=== PATIENT | female | born 1940 | race Caucasian/White ===

== ENCOUNTER → 2017-05-14 | Outpatient (CLI) | payer OTHER | END | disposition home or self-care (01) | LOC: C.PAPS 16:15 | PROVIDERS: ATTEND Obstetrics & Gynecology | DX: Z12.4 Encounter for screening for malignant neoplasm of cervix (principal) ==

== ENCOUNTER 2019-04-29 09:32 | Inpatient (IN) ==
--- OUTSIDE RECORDS SUMMARY | 2019-04-29 09:35 | External Medical Summary | Continuity of Care Document ---
:1940 Author Name Juan Mcghee Address Unavailable Unavailable , Care Team Providers Name Role Phone Unavailable Unavailable Unavailable Jaron Loving M.D. Unavailable 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.2) History of basal cell carcinoma (V10.83) (Z85.828) Genital herpes simplex (054.10) (A60.00) Skin symptoms (782.9) (R23.9) Postmenopausal osteoporosis (733.01) (M81.0) Encounter for routine gynecological exam ination with Papanicolaou smear of cervix (V72.31) (Z01.419) Vulvovaginitis (616.10) (N76.0) Allergies and Adverse Reactions No Known Drug Allergies (Allergy) Medications valACYclovir HCl - 500 MG Oral Tablet; T LEX ONE TABLET BY MOUTH TWICE DAILY FOR 5 DAYS Taz Loving Start: 10-Jun-2015 Quantity: 10 Refills: 5 Trusopt 2 % Ophthalmic Solution , M.DEdna Refills: 0 Multi Vitamin/Minerals Oral Tablet , M.D. Refills: 0 CoQ-10 CAPS , M.D. Refills: 0 Vitamin B Complex CAPS , M.DEdna Refills: 0 Procedures Procedures not documented Immunizations Immunizations not documented Family History Father Family history of Brain tumor (239.6) (D49.6) Status: Active Social History - Smoking Status Never smoker Plan of Treatment Planned Observations Planned Goals not documented Results No Known Results Results not documented Encounters Appointment; Elisabeth Loving M.D. 14-May-2017 11:40 Encounter Diagnosis: Problem not documented
[2019-04-29 10:46] LABS: Alanine Aminotransferase 31 U/L (12-78); Albumin Level 3.6 gm/dl (3.4-5.0); Aspartate Aminotransferase 35 U/L (15-37); BUN Creatinine Ratio 19.7 (10-20); Blood Urea Nitrogen 46 mg/dl (7-18); Calcium 8.9 mg/dl (8.5-10.1); Carbon Dioxide 28 mmol/L (21-32); Chloride 108 mmol/L (98-107); Est GFR (African American) 22.3; Est GFR (Non-African American) 19.3; Glucose 105 mg/dl (70-99); Potassium 4.5 mmol/L (3.5-5.1); Sodium 141 mmol/L (136-145)
[2019-04-29 10:49] LABS: Albumin Globulin Ratio 1.3 (0.9-2); Alkaline Phosphatase 46 U/L (45-117); Globulin 2.7 gm/dl (2.5-4.0); Total Protein 6.3 gm/dl (6.4-8.2)
[2019-04-29 10:54] LABS: Basophils # (auto) 0.08 K/uL (0-0.2); Basophils % (auto) 0.6 %; Eosinophils # (auto) 0.07 K/uL (0-0.5); Eosinophils % (auto) 0.6 %; Hematocrit (blood only) 41.8 % (37-47); Hemoglobin 14.3 g/dL (12.0-16.0); Immature Granulocytes # (auto) 0.04 K/uL (0.00-0.02); Immature Granulocytes % (auto) 0.3 %; Lymphocytes # (auto) 1.04 K/uL (1.2-3.4); Lymphocytes % (auto) 8.3 %; Mean Corpuscular Hgb Conc 34.2 g/dL (32-36); Mean Platelet Volume 12.5 fL (7.4-10.4); Monocytes % (auto) 6.4 %; Neutrophils # (auto) 10.54 K/uL (1.4-6.5); Neutrophils % (auto) 83.8 %; Platelet Count 33 K/uL (130-400); RDW Coefficient of Variation 14.4 % (11.5-14.5); RDW Standard Deviation 45.3 fL (36.4-46.3); Red Blood Count 4.92 M/uL (4.2-5.4); White Blood Count 12.57 K/uL (4.8-10.8)
--- NOTE | 2019-04-29 10:54 | XRay Report ---
XR hand LT min 3V routine CLINICAL HISTORY: Left hand pain status post trauma COMPARISON: None. DISCUSSION: There are erosive osteoarthritic changes present. No acute fractures are visualized. Ther e are no dislocations IMPRESSION: 1. No acute fractures 2. Moderate erosive osteoarthritis Electronically signed by: Zeke Rubin M.D. 04/29/2019 10:53 AM
--- NOTE | 2019-04-29 10:55 | XRay Report ---
XR knee LT 3V CLINICAL HISTORY: Left knee pain status post trauma COMPARISON: May 2015 DISCUSSION: The bones are mildly osteopenic. There are no acute fractures or dislocations. There are mild degenerative changes present. IMPRESSION: No fractures or dislocations identified. Electronically signed by: Zeke Rubin M.D. 04/29/2019 10:53 AM
--- NOTE | 2019-04-29 10:56 | XRay Report ---
XR lumbar spine min 4V routine CLINICAL HISTORY: Low back pain status post trauma COMPARISON STUDY: Chest CT performed February 2018 FINDINGS: The bones are osteopenic. There is a grade 1 spondylolisthesis of L5 on S1. There is a mode rate superior endplate L1 compression fracture which is old. IMPRESSION: 1. Old L1 compression fracture 2. No acute fractures identified Electronically signed by: Zeke Rubin M.D. 04/29/2019 10:55 AM
[2019-04-29] MEDS ORDERED: SODIUM CHLORIDE 0.9% 1000ML 1,000 ML IV STA (12:09)
[2019-04-29 12:46] LABS: Appearance Urine Clear (Clear); Bacteria Urine Automated Negative (Negative); Bilirubin Urine Negative (Negative); Blood Urine Negative (Negative); Color Urine Dark Yellow; Epithelial Cell Urine Auto >30 /lpf (0-5); Glucose Urine UA Negative (Negative); Ketones Urine Trace (Negative); Leukocyte Esterase Urine Negative (Negative); Nitrite Urine Negative (Negative); Protein Urine 2+ (Negative); RBC Urine Automated 0-4 /hpf (0-4); Specific Gravity Urine 1.028 (1.000-1.030); Urobilinogen Urine Negative (Negative)
--- NOTE | 2019-04-29 13:15 | History & Physical Report ---
Date of Service April 29, 2019 Assessment & Plan (1) BARBARA (acute kidney injury): (2) CKD (chronic kidney disease) stage 3, GFR 30-59 ml/min: -Admit to [facility] -Patient presenting from home after she was found on the floor by her -In the ED, creatinine found to be 2.3 (baseline ~1.7) -Likely prerenal nature -IVF, follow renal functions (3) Fall: -Seems to be a mechanical fall -Wrist, knee, lumbar spine x-ray all negative for acute fracture -UA does not suggest infection -PT/OT -Case management (4) Chronic ITP (idiopathic thrombocytopenia): -Baseline platelets ~ 40-60K -Noted to be 33K today -No signs of bleeding -Monitor CBC (5) Dementia: -Stable, at baseline -Continue Namenda and donepezil (6) DVT prophylaxis: -SCDs due to thrombocytopenia History of Present Illness Chief Complaint: fall, left wrist and knee pain, back pain Primary Care Provider: Sima Garcia MD 79-year-old female who presents to the ED for evaluation of left wrist and knee pain and back pain after a fall. Patient has underlying dementia and her short- term memory is limited. is the bedside who provides some history. He reports that around 6 this morning, he found the patient sitting in the hallway. Patient is unsure of how she fell however she reports she did not strike her head and there was no loss of consciousness. She told her that her left wrist and knee and back were hurting so she was brought to the ED for further evaluation. Patient reports she otherwise has been feeling well recently. Appetite has been good. No other recent illnesses, fevers, chills. She denies abdominal pain, nausea, vomiting, diarrhea. No chest pain or shortness of breath. She denies lightheadedness, dizziness, diaphoresis, syncopal events. No urinary symptoms. In the ED, all imaging is negative for acute findings. Labs show an elevated creatinine at 2.3 (baseline ~1.7). UA does not suggest infection. Patient was given IVF. Allergies Allergy/AdvReac Type Severity Reaction Status Date / Time No Known Allergies Allergy Unverified 04/29/19 10:27 Home Medications Home Medications Medication Instructions Recorded Confirmed Type multivitamin 1 tab PO DAILY #0 tab 02/26/18 04/29/19 History coenzyme Q10 [CoQ-10] 30 mg PO DAILY #0 02/27/18 04/29/19 History vitamin B comp and C no.3 [B 1 cap PO DAILY #0 02/27/18 04/29/19 History Complex Plus Vitamin C] donepezil 10 mg PO DAILY 04/29/19 04/29/19 History memantine 10 mg PO BID 04/29/19 04/29/19 History tramadol 50 mg PO Q6H PRN 04/29/19 04/29/19 History travoprost [Travatan Z] 1 drp OPB QPM 04/29/19 04/29/19 History Past Med/Surg History Medical History Chronic ITP (idiopathic thrombocytopenia) (Chronic) Osteoarthritis (Chronic) Osteoporosis (Chronic) Dementia (Chronic) CKD (chronic kidney disease) stage 3, GFR 30-59 ml/min (Chronic) Family History Aunt Diabetes Social History Communication Ability: Effective Beliefs That Will Affect Care: None Current Living Situation: Spouse Other Information That Helps Us Care for You: No Feels Safe at Home: Yes Safety Concerns: Feels Safe At This Time Smoking Status: Never smoker Hx Alcohol Use: Yes Alcohol type: wine Hx Substance Use: No Review of Systems Review of Systems: ROS per HPI, all other systems reviewed and negative Physical Exam Constitutional: + thin; no acute distress Vitals as noted Eyes: PERRL, conjunctivae normal, anicteric sclerae ENMT: external ear and nose normal, oropharynx normal Respiratory: normal respiratory effort, lungs clear to auscultation Cardiovascular: Rate/Rhythm: regular rate and regular rhythm Vessels: normal peripheral pulses Extremities: no edema Gastrointestinal (Abdomen): normal bowel sounds, soft, nontender, no hepatosplenomegaly Musculoskeletal: no cyanosis or clubbing, extremities motor strength 5/5 Mild tenderness to palpation over the left thumb metacarpal Skin: no rashes, warm and dry Neurologic: PERRL, EOMI, accommodation nl, no face palsy, no dysarthria Psychiatric: Orientation: alert, oriented to person and oriented to place; + not oriented to time (Correct year however states month is January) Cognition: + recent memory not intact Insight: + limited insight Results & Data Vital Signs (Past 12 Hours) Vital Signs Temp Pulse Resp BP Pulse Ox 04/29/19 10:04 99 04/29/19 09:37 36.4 C L 70 20 119/69 99 Laboratory Results Short CBC 04/29/19 Range/Units 10:17 WBC 12.57 H (4.8-10.8) K/uL Hgb 14.3 (12.0-16.0) g/dL Hct 41.8 (37-47) % Plt Count 33 L (130-400) K/uL BMP 04/29/19 10:17 Sodium 141 Potassium 4.5 Chloride 108 H Carbon Dioxide 28 BUN 46 H Creatinine 2.33 H Glucose 105 H Calcium 8.9 Liver Function 04/29/19 Range/Units 10:17 Total Bilirubin 2.0 H (0.2-1) mg/dl AST 35 (15-37) U/L ALT 31 (12-78) U/L Alkaline Phosphatase 46 (45-117) U/L Albumin 3.6 (3.4-5.0) gm/dl Urine 04/29/19 Range/Units 12:27 Urine Color Dark Yellow Urine Appearance Clear (Clear) Urine pH 5.0 (4.5-7.5) Ur Specific [place] 1.028 (1.000-1.030) Urine Protein 2+ H (Negative) Urine Glucose (UA) Negative (Negative) Diagnostic Findings LEFT HAND X-RAY IMPRESSION: 1. No acute fractures 2. Moderate erosive osteoarthritis LEFT KNEE X-RAY IMPRESSION: No fractures or dislocations identified. LUMBAR SPINE X-RAY IMPRESSION: 1. Old L1 compression fracture 2. No acute fractures identified Code Status & VTE Plan VTE Prophylaxis Plan VTE Prophylaxis will be ordered: Yes Supervising Physician Co-Signing Physician Notes I have seen and examined the patient and have discussed the case with the provider above. I agree with the assessment and plan as stated. Mrs. Card has clear memory loss on exam and is a poor historian. At the time of my exam her had left. Per historial accounts from the ER and other providers she had a mechanical fall at home resulting in her being found by her conscious and awake but in some minor pain, which she now denies. She states she feel outside in the grass. She has some clear bruising to her left hand and exam is otherwise unremarkable and normal. A L knee exam revealed no TTP and normal range of motion with no pain or laxity observed with varus and valgus stress. Assessment: BARBARA, mechanical fall with possible residual ambulatory dysfunction, chronic ITP. Agree with plan for IVF and repeat BMP in am. Would continue with outpatient Nephrology visit as previously planned. PT/OT evaluations for safety. DO Gilberto
[2019-04-29] MEDS ORDERED: TRAMADOL HCL 50 MG TABLET PO PRN (14:12)
[2019-04-29] MEDS ORDERED: ACETAMINOPHEN 325 MG TAB PO PRN (14:12)
[2019-04-29] MEDS: SODIUM CHLORIDE 0.9% 1000ML 1,000 ML IV SCH (15:58)
--- NOTE | 2019-04-29 18:35 | Emergency Department Note ---
Entered by Chyna Gonzales acting as a scribe for ED Provider Note CHIEF COMPLAINT: Back injury HISTORY OF PRESENT ILLNESS: The patient is a 79 year old female who presents to the Emergency Room with complaints of an episode of a back injury that occurred 4 hours ago. The patients states that he found her siting on the ground this morning and she was complaining of back pain and left knee pain. The patient states that she does not remember why she was on the floor. Per , the patient has mild memory loss at baseline. The patient notes that she also has left hand pain. The patient denies pain on any other area of her body. The patient states that she did not take anything for the pain. Pt denies LOC, headache, fevers, chills, diaphoresis, visual changes, neck pain, chest pain, breathing difficulties, nausea, vomiting, abdominal pain, melena, hematochezia, urinary symptoms, numbness, weakness, lymphadenopathy, rash, or other complaints. REVIEW OF SYSTEMS: See HPI for pertinent positives and negatives. A total of ten systems were reviewed and were otherwise negative. PMHx/PSHx: Rib fracture, thrombocytopenia SOCIAL HISTORY: Patient lives at home. PHYSICAL EXAM: GENERAL: Awake, alert, well-appearing, in no distress HENT: Normocephalic, atraumatic. Oropharynx unremarkable. EYES: PERRL. Normal conjunctiva. Sclera non-icteric. NECK: Inspection normal. Non-tender. Supple. No nuchal rigidity. FROM. No masses. RESPIRATORY: Clear to auscultation. No wheezes. No rales. Normal respiratory effort. CARDIAC: Normal rate. Normal rhythm. No murmurs. No rubs. Extremities warm and well perfused. Pulses equal. No JVD. GI: Soft, non-distended. No tenderness to palpation. No rebound or guarding. No masses. RECTAL: Deferred. MUSCULOSKELETAL: Atraumatic. Chest examination reveals no tenderness. The back is symmetrical on inspection without obvious abnormality. There is no CVA tenderness to palpation. No joint edema. UPPER EXTREMITIES: Hematoma over second metacarpal on left hand. Abrasion on ulnar aspect of left wrist. LOWER EXTREMITIES: Calves are equal size bilaterally and non-tender. No edema. No discoloration. NEURO: Normal sensorium. No sensory or motor deficits noted. SKIN: No rash or jaundice noted. EMERGENCY DEPARTMENT COURSE: 09: Past medical records reviewed. The patient was evaluated in room A4, and a complete history and physical examination were performed. 1209: I updated the patient on the test results. The patient is resting comfortably. 1248: I discussed the patient's case with Dr. Macias- Internal Medicine. She will evaluate the patient for further management. 1255: I updated the patient on the plan and she is agreeable for admission. MEDICAL DECISION MAKING: A4 Triage Nursing notes reviewed and agree them. Additional history obtained from . The patient's history was concerning for traumatic injury and a fall. Differential diagnosis: Etiologies such as fracture, dislocation, neurovascular compromise, compartment syndrome, soft tissue injury, electrolyte abnormality, UTI, as well as others were entertained. Physical examination: Consistent with an isolated back, left arm and left knee injury. ER treatment provided: Patient upon analgesia Saline hydration On reassessment the patient felt better. Diagnostics interpreted by me: ECG: No acute ischemia The labs revealed a slight leukocytosis on CBC. Chemistry panel revealed an elevated creatinine concerning for acute kidney injury. Prior labs were reviewed. Most recent creatinine from our system was 1.0. Her outpatient creatinine measurements this year were 1.5 and then increased to 1.7 in January. Urinalysis negative. Imaging studies: Xrays of the left hand, left knee, and back. No acute fracture dislocations noted. Consultation: A consultation was placed with the hospitalist, Dr. Macias. The case was discussed and diagnostics were reviewed. The patient was evaluated in the ER for further treatment. IMPRESSION: BARBARA, leukocytosis, contusion of left knee, contusion of left hand, low back pain PLAN: Being evaluated by hospitalist The scribe's documentation has been prepared under my direction and personally reviewed by me in its entirety. I confirm that the note above accurately reflects all work, treatment, procedures, and medical decision making performed by me. Impression & Plan BARBARA (acute kidney injury), Leukocytosis, Contusion of left knee, Contusion of left hand, Low back pain Past Med/Surg History Medical History Chronic ITP (idiopathic thrombocytopenia) (Chronic) Osteoarthritis (Chronic) Osteoporosis (Chronic) Dementia (Chronic) CKD (chronic kidney disease) stage 3, GFR 30-59 ml/min (Chronic) Family History Aunt Diabetes Social History Communication Ability: Effective Beliefs That Will Affect Care: None Current Living Situation: Spouse Other Information That Helps Us Care for You: No Feels Safe at Home: Yes Safety Concerns: Feels Safe At This Time Smoking Status: Never smoker Hx Alcohol Use: Yes Alcohol type: wine Hx Substance Use: No Results & Data Vital Signs Vital Signs - 24 hr 04/29/19 09:37 04/29/19 10:04 04/29/19 11:32 Temperature 36.4 C L Temperature Source Oral Sepsis Recent Fever Within 48 Hours No Sepsis Action Taken by Nursing No Action Required Pulse Rate 70 Pulse Rate [Apical] 67 Respiratory Rate 20 16 Respiratory Effort / Characteristics Non-Labored Respiratory Depth Normal Blood Pressure 119/69 Blood Pressure [Left Arm] 126/74 Blood Pressure Mean 85 Blood Pressure Mean [Left Arm] 91 Pulse Oximetry 99 99 97 Oxygen Delivery Method Room Air Room Air Home Medications Current Medication List: was personally reviewed by me Laboratory Data Attestation: I reviewed the patient's lab results. Result diagrams: 04/29/19 10:17 04/29/19 10:17 Lab Results 04/29/19 04/29/19 04/29/19 Range/Units 10:17 10:17 12:27 WBC 12.57 H (4.8-10.8) K/uL RBC 4.92 (4.2-5.4) M/uL Hgb 14.3 (12.0-16.0) g/dL Hct 41.8 (37-47) % MCV 85.0 (80-100) fL MCH 29.1 (25-34) pg MCHC 34.2 (32-36) g/dL RDW Std Deviation 45.3 (36.4-46.3) fL RDW Coeff of Yajaira 14.4 (11.5-14.5) % Plt Count 33 L (130-400) K/uL MPV 12.5 H (7.4-10.4) fL Immature Gran % (Auto) 0.3 % Neut % (Auto) 83.8 % Lymph % (Auto) 8.3 % [place] % (Auto) 6.4 % Eos % (Auto) 0.6 % Baso % (Auto) 0.6 % Immature Gran # (Auto) 0.04 H (0.00-0.02) K/uL Neut # (Auto) 10.54 H (1.4-6.5) K/uL Lymph # (Auto) 1.04 L (1.2-3.4) K/uL [place] # (Auto) 0.80 H (0.11-0.59) K/uL Eos # (Auto) 0.07 (0-0.5) K/uL Baso # (Auto) 0.08 (0-0.2) K/uL Sodium 141 (136-145) mmol/L Potassium 4.5 (3.5-5.1) mmol/L Chloride 108 H (98-107) mmol/L Carbon Dioxide 28 (21-32) mmol/L Anion Gap 6.0 (3-11) BUN 46 H (7-18) mg/dl Creatinine 2.33 H (0.6-1.2) mg/dl Est Cr Clr Drug Dosing Not Reportable Est GFR ( Amer) 22.3 Est GFR (Non-Af Amer) 19.3 BUN/Creatinine Ratio 19.7 (10-20) Glucose 105 H (70-99) mg/dl Calcium 8.9 (8.5-10.1) mg/dl Total Bilirubin 2.0 H (0.2-1) mg/dl AST 35 (15-37) U/L ALT 31 (12-78) U/L Alkaline Phosphatase 46 (45-117) U/L Total Protein 6.3 L (6.4-8.2) gm/dl Albumin 3.6 (3.4-5.0) gm/dl Globulin 2.7 (2.5-4.0) gm/dl Albumin/Globulin Ratio 1.3 (0.9-2) Urine Color Dark Yellow Urine Appearance Clear (Clear) Urine pH 5.0 (4.5-7.5) Ur Specific [place] 1.028 (1.000-1.030) Urine Protein 2+ H (Negative) Urine Glucose (UA) Negative (Negative) Urine Ketones Trace H (Negative) Urine Blood Negative (Negative) Urine Nitrite Negative (Negative) Urine Bilirubin Negative (Negative) Urine Urobilinogen Negative (Negative) Ur Leukocyte Esterase Negative (Negative) Urine WBC (Auto) 1-5 (0-5) /hpf Urine RBC (Auto) 0-4 (0-4) /hpf U Hyaline Cast (Auto) 5-10 H (0-5) /lpf U Epithel Cells (Auto) >30 H (0-5) /lpf Urine Bacteria (Auto) Negative (Negative) Administered Medications Sodium Chloride (Nss 1000ml) 1,000 mls @ 80 mls/hr IV .[id number] SIOBHAN Stop: 05/29/19 14:11 Last Admin: 04/29/19 15:58 Dose: 80 mls/hr Documented by: [id number] Discontinued Medications Sodium Chloride (Nss 1000ml) 1,000 mls @ 125 mls/hr IV .Q8H STA Stop: 04/29/19 20:08 Last Infusion: 04/29/19 15:57 Dose: 0 mls/hr Documented by: [id number] Admin: 04/29/19 13:09 Dose: 125 mls/hr Documented by: [id number] Imaging Data Radiologist's Impression: Radiology results as stated below per my review and the radiologist's interpretation: XR hand LT min 3V routine CLINICAL HISTORY: Left hand pain status post trauma COMPARISON: None. DISCUSSION: There are erosive osteoarthritic changes present. No acute fractures are visualized. There are no dislocations IMPRESSION: 1. No acute fractures 2. Moderate erosive osteoarthritis Electronically signed by: Zeke Rubin M.D. 04/29/2019 10:53 AM XR knee LT 3V CLINICAL HISTORY: Left knee pain status post trauma COMPARISON: May 2015 DISCUSSION: The bones are mildly osteopenic. There are no acute fractures or dislocations. There are mild degenerative changes present. IMPRESSION: No fractures or dislocations identified. Electronically signed by: Zeke Rubin M.D. 04/29/2019 10:53 AM XR lumbar spine min 4V routine CLINICAL HISTORY: Low back pain status post trauma COMPARISON STUDY: Chest CT performed February 2018 FINDINGS: The bones are osteopenic. There is a grade 1 spondylolisthesis of L5 on S1. There is a moderate superior endplate L1 compression fracture which is old. IMPRESSION: 1. Old L1 compression fracture 2. No acute fractures identified Electronically signed by: Zeke Rubin M.D. 04/29/2019 10:55 AM ECG Data Attestation: I personally reviewed and interpreted this ECG as follows: Indication: other (fall) Rate (beats per minute): 67 Rhythm: normal sinus Findings: + other (old septal infarct); no PAC, no PVC, no ST depression and no ST elevation Blood Pressure Blood Pressure Findings: Normal blood pressure Blood Pressure Disposition: did not require urgent referral Discharge Plan Visit Data *Final* Discharge Date/Time: 04/29/19 13:47 Chief Complaint: Back Injury/Pain Stated Complaint: LOW BACK PAIN, LT KNEE PAIN ED Provider: Darren Bañuelos Discharge Problem: BARBARA (acute kidney injury), Leukocytosis, Contusion of left knee, Contusion of left hand, Low back pain Patient Disposition: Admitted As Inpatient Discharge Instructions Interventions: ED Discharge Assessment Last Done: 04/29/19 13:47 Discharge Problem: Leukocytosis Qualifiers: Leukocytosis type: unspecified Qualified Code(s): D72.829 - Elevated white blood cell count, unspecified Contusion of left knee Qualifiers: Encounter type: initial encounter Qualified Code(s): S80.02XA - Contusion of left knee, initial encounter Contusion of left hand Qualifiers: Encounter type: initial encounter Qualified Code(s): S60.222A - Contusion of left hand, initial encounter Low back pain Qualifiers: Chronicity: unspecified Back pain laterality: unspecified Sciatica presence: unspecified whether sciatica present Qualified Code(s): M54.5 - Low back pain The scribe's documentation has been prepared under my direction and personally reviewed by me in its entirety. I confirm that the note above accurately reflects all work, treatment, procedures, and medical decision making performed by me.
[2019-04-29] MEDS ORDERED: NON-FORMULARY MEDICATION SCH (20:30)
[2019-04-29] MEDS ORDERED: TRAVOPROST Z 0.004% OPH SOLN 2.5 ML BTL OPB SCH (21:00)
[2019-04-29] MEDS: TRAVOPROST Z 0.004% OPH SOLN 2.5 ML BTL OPB SCH (22:04)
[2019-04-29] MEDS: MEMANTINE HCL 10 MG TAB PO SCH (22:05)
[2019-04-30] MEDS: SODIUM CHLORIDE 0.9% 1000ML 1,000 ML IV SCH ×3 (04:32→20:28)
[2019-04-30 06:24] LABS: Mean Corpuscular Hgb Conc 33.4 g/dL (32-36)
[2019-04-30 06:29] LABS: Hemoglobin 12.7 g/dL (12.0-16.0); Mean Corpuscular Volume 85.4 fL (80-100); RDW Coefficient of Variation 14.5 % (11.5-14.5); RDW Standard Deviation 45.3 fL (36.4-46.3); Red Blood Count 4.45 M/uL (4.2-5.4); White Blood Count 8.05 K/uL (4.8-10.8)
[2019-04-30 06:47] LABS: Platelet Count 35 K/uL (130-400); Platelet Estimate Decreased (Normal)
[2019-04-30 06:52] LABS: BUN Creatinine Ratio 20.3 (10-20); Calcium 7.8 mg/dl (8.5-10.1); Creatinine Clr Calc Pharmacy 22.7 ml/min; Est GFR (African American) 30.5; Est GFR (Non-African American) 26.3; Potassium 4.2 mmol/L (3.5-5.1)
[2019-04-30] MEDS ORDERED: NON-FORMULARY MEDICATION (Coenzyme Q10 [Coq-10] 30 MG) PO SCH (09:00)
[2019-04-30] MEDS: MEMANTINE HCL 10 MG TAB PO SCH ×2 (09:01→20:34)
[2019-04-30] MEDS: VITAMIN B COMPLEX TAB PO SCH (09:01)
[2019-04-30] MEDS: DONEPEZIL HCL 10 MG TAB PO SCH (09:01)
[2019-04-30] MEDS: MULTIVITAMIN TAB PO SCH (09:02)
--- NOTE | 2019-04-30 11:10 | Hospitalist Progress Note ---
Date of Service April 30, 2019 Assessment & Plan (1) BARBARA (acute kidney injury): (2) CKD (chronic kidney disease) stage 3, GFR 30-59 ml/min: as per initial ED notes on 04/29/19: "79 year old female who presents to the Emergency Room with complaints of an episode of a back injury that occurred 4 hours ago. The patients states that he found her siting on the ground this morning and she was complaining of back pain and left knee pain. The patient states that she does not remember why she was on the floor. Per , the patient has mild memory loss at baseline." -In the ED, creatinine found to be elevated as 2.3 -as per admitting hospitalist note the patient's creatinine baseline estimated to be 1.7 -However in hospital labs in 2018, creatinine has been lower than 1.7 -creatinine on 05/01/19 after IV fluids is 1.8. Will continue IV fluids in the hospital for now and monitor the renal function -check creatinine kinase (3) Fall: -appears to be a mechanical fall as per admission evaluation -admission XR lumbar spine min 4V routine: Old L1 compression fracture. No acute fractures identified ; admission left hand and left knee X rays with no acute fracture -awaiting PT/OT evaluation (4) Chronic ITP (idiopathic thrombocytopenia): -Baseline platelets ~ 40-60K -33K on 04/29/19 admission, is 35K on 04/30/19 follow up lab -No signs of bleeding (5) Dementia: Dementia without behavioral disturbances -Continue Namenda and donepezil (6) DVT prophylaxis: -SCDs due to thrombocytopenia Subjective Patient cannot recall the context of how she came to the hospital. She says she does not remember. She could not describe the activities she was doing the past 2 days and says she does not remember. Otherwise she is pleasant and cooperative on physical exam. She denies pain currently. She denies bruising. she denies chest pain. she denies shortness of breath. she denies headache. she denies problems with bowel movements Physical Exam Constitutional: + thin and comfortable Eyes: PERRL, conjunctivae normal, anicteric sclerae EOM intact bilaterally ENMT: external ear and nose normal, oropharynx normal Neck: trachea midline, no thyromegaly normal visual inspection Respiratory: normal respiratory effort, lungs clear to auscultation Cardiovascular: RRR, no murmur, no edema Gastrointestinal (Abdomen): normal bowel sounds, soft, nontender, no hepatosplenomegaly Musculoskeletal: Head/Neck/Chest: normocephalic and head atraumatic Neurologic: PERRL, EOMI, accommodation nl, no face palsy, no dysarthria Psychiatric: Orientation: alert and cooperative Results & Data Vital Signs (Past 12 Hours) Vital Signs Temp Pulse Resp BP BP Pulse Ox 04/30/19 07:38 36.8 C 58 L 16 139/66 95 04/29/19 23:15 36.9 C 74 18 164/83 H 96
[2019-04-30 11:55] LABS: BUN Creatinine Ratio 19.1 (10-20); Calcium 8.2 mg/dl (8.5-10.1); Creatinine Clr Calc Pharmacy 23.9 ml/min; Est GFR (African American) 32.4; Potassium 4.3 mmol/L (3.5-5.1)
[2019-04-30] MEDS: TRAVOPROST Z 0.004% OPH SOLN 2.5 ML BTL OPB SCH (20:34)
[2019-05-01 08:35] LABS: Hematocrit (blood only) 40.8 % (37-47); Hemoglobin 13.5 g/dL (12.0-16.0); Mean Corpuscular Volume 86.1 fL (80-100); RDW Coefficient of Variation 14.4 % (11.5-14.5); RDW Standard Deviation 45.4 fL (36.4-46.3); Red Blood Count 4.74 M/uL (4.2-5.4); White Blood Count 6.82 K/uL (4.8-10.8)
[2019-05-01 08:45] LABS: Albumin Level 3.2 gm/dl (3.4-5.0); BUN Creatinine Ratio 16.8 (10-20); Calcium 8.3 mg/dl (8.5-10.1); Creatinine Clr Calc Pharmacy 25.4 ml/min; Est GFR (African American) 34.9; Est GFR (Non-African American) 30.1; Potassium 4.2 mmol/L (3.5-5.1)
[2019-05-01 08:49] LABS: Albumin Globulin Ratio 1.1 (0.9-2); Globulin 2.8 gm/dl (2.5-4.0)
[2019-05-01 08:56] LABS: Basophils # (auto) 0.07 K/uL (0-0.2); Eosinophils # (auto) 0.26 K/uL (0-0.5); Eosinophils % (auto) 3.8 %; Giant Platelets 1+; Immature Granulocytes # (auto) 0.03 K/uL (0.00-0.02); Immature Granulocytes % (auto) 0.4 %; Lymphocytes # (auto) 1.59 K/uL (1.2-3.4); Lymphocytes % (auto) 23.3 %; Mean Corpuscular Hgb Conc 33.1 g/dL (32-36); Monocytes # (auto) 0.58 K/uL (0.11-0.59); Monocytes % (auto) 8.5 %; Neutrophils # (auto) 4.29 K/uL (1.4-6.5); Platelet Count 40 K/uL (130-400)
[2019-05-01] MEDS: VITAMIN B COMPLEX TAB PO SCH (08:57)
[2019-05-01] MEDS: MULTIVITAMIN TAB PO SCH (08:57)
[2019-05-01] MEDS: MEMANTINE HCL 10 MG TAB PO SCH (08:57)
[2019-05-01] MEDS: DONEPEZIL HCL 10 MG TAB PO SCH (08:57)
--- NOTE | 2019-05-01 09:24 | Hospitalist Progress Note ---
Date of Service May 01, 2019 Assessment & Plan (1) BARBARA (acute kidney injury): (2) CKD (chronic kidney disease) stage 3, GFR 30-59 ml/min: as per initial ED notes on 04/29/19: "79 year old female who presents to the Emergency Room with complaints of an episode of a back injury that occurred 4 hours ago. The patients states that he found her siting on the ground this morning and she was complaining of back pain and left knee pain. The patient states that she does not remember why she was on the floor. Per , the patient has mild memory loss at baseline." - Prasanth [phone], reports at home that patient was on the floor for no more than 30 minutes after episode of malaise and feeling warm -In the ED, creatinine found to be elevated as 2.3 -as per admitting hospitalist note the patient's creatinine baseline estimated to be 1.7 based on January 2019 outpatient labs; However in hospital labs from 2018 patient's creatinine has been lower than 1.7 -creatinine on 05/01/19 after IV fluids is 1.8 and then 1.71 -IV fluids continued in reduced dose and creatinine downtrended to 1.61 by 05/01/19 and this appears to be in line with patient's recent renal function as outpatient -creatinine kinase is normal (3) Fall: -appears to be a mechanical fall as per admission evaluation - Prasanth [phone], reports at home that patient was on the floor for no more than 30 minutes after episode of malaise and feeling warm -admission XR lumbar spine min 4V routine: Old L1 compression fracture. No acute fractures identified ; admission left hand and left knee X rays with no acute fracture -Patient passed the PT/Ot evaluations (4) Chronic ITP (idiopathic thrombocytopenia): -Baseline platelets ~ 40-60K -33K on 04/29/19 admission, is 35K on 04/30/19 and is 40 K on 05/01/19 -No signs of bleeding (5) Dementia: Dementia without behavioral disturbances -Continue Namenda and donepezil Underweight due to inadequate calorie intake - expresses concern that patient does not eat enough or drink enough fluids at home -patient is thin with BMI of 19 -BOOST supplements with meals ordered -patient's will get BOOST supplements for home use when patient is ready for discharge -patient currently eating the lunch meal at the hospital on her own (6) DVT prophylaxis: -SCDs due to thrombocytopenia while in the hospital Discharge Instructions (Discharge to home with follow up appointment to primary care doctor Patient encouraged to drink water with meals or when thirsty. Patient may take BOOST nutritional supplements with meals. (BOOST supplements do not need prescription, they are available for purchase at supermarkets) 05/09/2019 10:20 AM Provider Sima Kunz MD Department General Internal Medicine [facility]) Discharge Diagnosis BARBARA (acute kidney injury) on CKD (chronic kidney disease) stage 3, GFR 30-59 ml/min, Dementia without Behavioral Disturbance, Chronic ITP (idiopathic thrombocytopenia), Underweight due to inadequate calorie intake Subjective Patient remembers physician's name. Patient denies any general malaise. no headache. no dizziness. no chest pain. no shortness of breath. no vomiting Physical Exam Constitutional: + thin and comfortable Eyes: PERRL, conjunctivae normal, anicteric sclerae EOM intact bilaterally ENMT: external ear and nose normal, oropharynx normal Neck: trachea midline, no thyromegaly normal visual inspection Respiratory: normal respiratory effort, lungs clear to auscultation Cardiovascular: RRR, no murmur, no edema Gastrointestinal (Abdomen): normal bowel sounds, soft, nontender, no hepatosplenomegaly Musculoskeletal: Head/Neck/Chest: normocephalic and head atraumatic Neurologic: PERRL, EOMI, accommodation nl, no face palsy, no dysarthria Psychiatric: Orientation: alert and cooperative Results & Data Vital Signs (Past 12 Hours) Vital Signs Temp Pulse Pulse Resp BP Pulse Ox 05/01/19 07:45 36.4 C L 64 20 160/84 H 100 05/01/19 00:10 36.9 C 61 16 150/78 H 96
--- NOTE | 2019-05-01 09:36 | Discharge Summary ---
Date of Service May 01, 2019 Admission HPI Per Admitting Provider 79-year-old female who presents to the ED for evaluation of left wrist and knee pain and back pain after a fall. Patient has underlying dementia and her short- term memory is limited. is the bedside who provides some history. He reports that around 6 this morning, he found the patient sitting in the hallway. Patient is unsure of how she fell however she reports she did not strike her head and there was no loss of consciousness. She told her that her left wrist and knee and back were hurting so she was brought to the ED for further evaluation. Patient reports she otherwise has been feeling well recently. Appetite has been good. No other recent illnesses, fevers, chills. She denies abdominal pain, nausea, vomiting, diarrhea. No chest pain or shortness of breath. She denies lightheadedness, dizziness, diaphoresis, syncopal events. No urinary symptoms. In the ED, all imaging is negative for acute findings. Labs show an elevated creatinine at 2.3 (baseline ~1.7). UA does not suggest infection. Patient was given IVF. Admission Exam Per Admitting Provider Constitutional: + thin; no acute distress Vitals as noted Eyes: PERRL, conjunctivae normal, anicteric sclerae ENMT: external ear and nose normal, oropharynx normal Respiratory: normal respiratory effort, lungs clear to auscultation Cardiovascular: Rate/Rhythm: regular rate and regular rhythm Vessels: normal peripheral pulses Extremities: no edema Gastrointestinal (Abdomen): normal bowel sounds, soft, nontender, no hepatosplenomegaly Musculoskeletal: no cyanosis or clubbing, extremities motor strength 5/5 Mild tenderness to palpation over the left thumb metacarpal Skin: no rashes, warm and dry Neurologic: PERRL, EOMI, accommodation nl, no face palsy, no dysarthria Psychiatric: Orientation: alert, oriented to person and oriented to place; + not oriented to time (Correct year however states month is January) Cognition: + recent memory not intact Insight: + limited insight Principal Diagnosis BARBARA (acute kidney injury) on CKD (chronic kidney disease) stage 3, GFR 30-59 ml/min, Dementia without Behavioral Disturbance, Chronic ITP (idiopathic thrombocytopenia), Underweight due to inadequate calorie intake Discharge Exam Constitutional + thin and comfortable Eyes PERRL, conjunctivae normal, anicteric sclerae EOM intact bilaterally ENMT external ear and nose normal, oropharynx normal Neck trachea midline, no thyromegaly normal visual inspection Respiratory normal respiratory effort, lungs clear to auscultation Cardiovascular RRR, no murmur, no edema Gastrointestinal (Abdomen) normal bowel sounds, soft, nontender, no hepatosplenomegaly Musculoskeletal Head/Neck/Chest: normocephalic and head atraumatic Neurologic PERRL, EOMI, accommodation nl, no face palsy, no dysarthria Psychiatric Orientation: alert and cooperative Discharge Data Allergies Allergy/AdvReac Type Severity Reaction Status Date / Time No Known Allergies Allergy Unverified 04/29/19 10:27 Consultations 04/29/19 12:48 ED Decision to Admit Stat 04/29/19 14:12 Consult Case Management - Discharge Planning Routine Hospital Course (1) BARBARA (acute kidney injury): (2) CKD (chronic kidney disease) stage 3, GFR 30-59 ml/min: as per initial ED notes on 04/29/19: "79 year old female who presents to the Emergency Room with complaints of an episode of a back injury that occurred 4 hours ago. The patients states that he found her siting on the ground this morning and she was complaining of back pain and left knee pain. The patient states that she does not remember why she was on the floor. Per , the patient has mild memory loss at baseline." - Prasanth [phone], reports at home that patient was on the floor for no more than 30 minutes after episode of malaise and feeling warm -In the ED, creatinine found to be elevated as 2.3 -as per admitting hospitalist note the patient's creatinine baseline estimated to be 1.7 based on January 2019 outpatient labs; However in hospital labs from 2018 patient's creatinine has been lower than 1.7 -creatinine on 05/01/19 after IV fluids is 1.8 and then 1.71 -IV fluids continued in reduced dose and creatinine downtrended to 1.61 by 05/01/19 and this appears to be in line with patient's recent renal function as outpatient -creatinine kinase is normal (3) Fall: -appears to be a mechanical fall as per admission evaluation - Prasanth [phone], reports at home that patient was on the floor for no more than 30 minutes after episode of malaise and feeling warm -admission XR lumbar spine min 4V routine: Old L1 compression fracture. No acute fractures identified ; admission left hand and left knee X rays with no acute fracture -Patient passed the PT/Ot evaluations (4) Chronic ITP (idiopathic thrombocytopenia): -Baseline platelets ~ 40-60K -33K on 04/29/19 admission, is 35K on 04/30/19 and is 40 K on 05/01/19 -No signs of bleeding (5) Dementia: Dementia without behavioral disturbances -Continue Namenda and donepezil Underweight due to inadequate calorie intake - expresses concern that patient does not eat enough or drink enough fluids at home -patient is thin with BMI of 19 -BOOST supplements with meals ordered -patient's will get BOOST supplements for home use when patient is ready for discharge -patient currently eating the lunch meal at the hospital on her own (6) DVT prophylaxis: -SCDs due to thrombocytopenia while in the hospital Discharge Instructions (Discharge to home with follow up appointment to primary care doctor Patient encouraged to drink water with meals or when thirsty. Patient may take BOOST nutritional supplements with meals. (BOOST supplements do not need prescription, they are available for purchase at supermarkets) 05/09/2019 10:20 AM Provider Sima Kunz MD Department General Internal Medicine [facility]) Discharge Diagnosis BARBARA (acute kidney injury) on CKD (chronic kidney disease) stage 3, GFR 30-59 m l/min, Dementia without Behavioral Disturbance, Chronic ITP (idiopathic thrombocytopenia), Underweight due to inadequate calorie intake Total Time Total Time Spent Total Time Spent (In Minutes): 40 minutes Total Time Includes: Examination of the Patient, Discharge Planning, Medication Reconciliation and Communication With Other Providers Discharge Plan Discharge Items Patient Disposition: Home - Self-Care Reason For Visit: BARBARA Discharge Diagnosis: BARBARA (acute kidney injury) on CKD (chronic kidney disease) stage 3, GFR 30-59 ml/min, Dementia without Behavioral Disturbance, Chronic ITP (idiopathic thrombocytopenia), Underweight due to inadequate calorie intake Condition: Good Discharge Goals: Prevent disease Activity: Resume your previous activity Non-emergency contact: Primary Care Provider Call non-emergency contact if: you have any medication questions Follow-up/Referrals: Sima Garcia MD [Primary Care Provider] - Diet: Regular Addtl Provider Instructions: Discharge to home with follow up appointment to primary care doctor Patient encouraged to drink water with meals or when thirsty. Patient may take BOOST nutritional supplements with meals. (BOOST supplements do not need prescription, they are available for purchase at [employer]) 05/09/2019 10:20 AM Provider Sima Kunz MD Department General Internal Medicine [facility] Prescriptions: Continued multivitamin Tablet 1 tab PO DAILY Qty: 0 RF: 0 coenzyme Q10 [CoQ-10] 30 mg Capsule 30 mg PO DAILY Qty: 0 RF: 0 B Complex Plus Vitamin C [id number] mg Capsule 1 cap PO DAILY Qty: 0 RF: 0 donepezil 10 mg tablet 10 mg PO DAILY RF: 0 Travatan Z 0.004 % drops 1 drp OPB QPM RF: 0 memantine 10 mg tablet 10 mg PO BID RF: 0 tramadol 50 mg Tablet 50 mg PO Q6H PRN (Reason: Pain) RF: 0 Stand-Alone Forms: [facility] Discharge Orders: Discharge Order (Routine); Ordered 05/01/19 Ordered By: Ashvin Stuart Admission Data Admit Date/Time: 04/29/19 12:49 Attending Provider: Ashvin Stuart Admit Provider: Diane Macias Primary Care Provider: Sima Garcia Other Providers: Diane Macias Service: Medical
== END 2019-05-01 12:19 | disposition home or self-care (01) | DRG 683 ==
LOC: ED 09:32 → 3N 12:49

== ENCOUNTER 2024-02-11 11:09 | Inpatient (IN) ==
--- NOTE | 2024-02-11 12:15 | XRay Report ---
XR chest 1V not portable CLINICAL HISTORY: Desaturation. COMPARISON STUDY: Chest CT 02/26/2018. Chest radiograph November 16, 2023. FINDINGS: Patient is rotated. Low lung volumes are unchanged. There is a small right pleural effusion . Left basilar opacity favors atelectasis. Right midlung opacity has developed since prior exam. Ther e is no evidence for pulmonary edema. Cardiomegaly is unchanged. Mediastinal contours are stable. No pneumothorax. IMPRESSION: 1. Right midlung opacity which has developed since prior exam. This favors a focus of pneumonia. Radi ographic follow-up to ensure resolution is recommended. 2. Small right pleural effusion. 3. Left basilar opacity suggestive of atelectasis. ACT 112: Negative or not required by law. Electronically signed by: Dc Huang M.D. 02/11/2024 12:14 PM
--- NOTE | 2024-02-11 12:17 | XRay Report ---
XR hand LT min 3V routine CLINICAL HISTORY: swelling TECHNIQUE: 3 views of the left hand were obtained. Comparison: Comparison is made to left hip radiograph 04/29/2019 FINDINGS: There is no evidence of an acute fracture. Joint space narrowing and osteophyte formation is seen mos t prominent in the distal interphalangeal joints and first carpometacarpal joint. Soft tissue swellin g is seen. IMPRESSION: Worsening degenerative changes and soft tissue swelling without evidence of acute fracture. ACT 112: Negative or not required by law. Electronically signed by: Abel Kovacs M.D. 02/11/2024 12:16 PM
[2024-02-11 12:27] LABS: Basophils # (auto) 0.11 K/uL (0.00-0.20); Eosinophils # (auto) 0.15 K/uL (0.00-0.50); Eosinophils % (auto) 1.3 %; Hematocrit (blood only) 39.5 % (37.0-47.0); Hemoglobin 12.5 g/dl (12.0-16.0); Immature Granulocytes # (auto) 0.07 K/uL (0.01-0.20); Immature Granulocytes % (auto) 0.6 %; Lymphocytes # (auto) 1.14 K/uL (1.20-3.40); Mean Corpuscular Hemoglobin 27.4 pg (25.0-34.0); Mean Corpuscular Hgb Conc 31.6 g/dL (32.0-36.0); Mean Corpuscular Volume 86.6 fL (80.0-100.0); Mean Platelet Volume 12.4 fL (9.4-12.4); Monocytes % (auto) 9.6 %; Neutrophils # (auto) 8.86 K/uL (1.40-6.50); Neutrophils % (auto) 77.5 %; Platelet Count 114 K/uL (130-400); RDW Coefficient of Variation 14.1 % (11.5-14.5); Red Blood Count 4.56 M/uL (4.20-5.40); White Blood Count 11.43 K/ul (4.8-10.8)
[2024-02-11 12:40] LABS: Albumin Globulin Ratio 1.5 (0.9-2); Albumin Level 3.5 gm/dl (3.4-5.0); BUN Creatinine Ratio 19.6 (10-20); Bilirubin,Total 1.4 mg/dl (0.2-1.0); Calcium 8.8 mg/dl (8.6-10.3); Creatinine Clr Calc Pharmacy 21.8 ml/min; Est GFR (African American) 26.9 ml/min; Est GFR (Non-African American) 23.2 ml/min; Globulin 2.3 gm/dl (2.5-4.0); Potassium 3.7 mmol/L (3.5-5.1); Total Protein 5.8 gm/dl (6.0-8.3)
[2024-02-11 12:51] LABS: Partial Thromboplastin Ratio 0.7; Prothrombin Time 10.6 Seconds (9.0-12.0)
[2024-02-11 12:52] LABS: Partial Thromboplastin Time < 20 Seconds (21-31)
--- NOTE | 2024-02-11 13:06 | Emergency Department Note ---
Impression & Plan Pneumonia, Acute respiratory failure with hypoxia, Internal jugular vein thrombosis ED Provider Note NAME: PEGGY PRITCHETT AGE: 84 SEX: F : 1940 ARRIVES VIA: Ambulance INFORMANT: Patient, ED PROVIDER(S): Cisco Parsons MD CHIEF COMPLAINT: Left hand/right foot swelling HPI: This is an 84-year-old female with history of dementia, CKD presenting for swelling to hand/foot. Patient not on any information is not oriented to herself, time or place. Staff called EMS due to patient having swelling of the left hand, right foot and was drooling. Currently she does move all extremities with symmetric facies. She is sleeping comfortably but easily arousable. She is requiring oxygen at this time. ROS: Unable to obtain PHYSICAL EXAMINATION: General: Chronic ill-appearing Head: Normocephalic and atraumatic Eyes: Normal inspection, extraocular muscles intact Ear, nose, throat: Normal external exam Neck: Normal range of motion Respiratory: lungs clear to auscultation bilaterally Cardiovascular: Regular rate/rhythm, no murmur GI: soft, nontender, no guarding or rebound Extremities: nontender, moves all extremities, mild left hand swelling, equal lower extremities Neuro: The patient awake and alert, appropriately conversive, no focal deficits, symmetric faces Skin: Warm, dry, and intact MEDICAL DECISION MAKING: This is an 84-year-old female with history of dementia, CKD presented for left hand/right foot swelling. Patient had about to be hypoxic while here. Chest x- ray as independent read by me reveals a left midlung opacity concerning for pneumonia without pleural effusion. Will do antibiotics at this time she is going to liters as she is 89% on room air. She is demented otherwise without able to provide history. Will do ultrasound of the right upper extremity to help elucidate for DVT however low concern for this. Bilateral lower extremities are nontender without swelling. -Blood work reveals leukocytosis to 11.43, otherwise no significant abnormalities on blood work aside from creatinine 1.94 -Upper respiratory panel negative -Will admit patient for her pneumonia given ceftriaxone and azithromycin pending upper extremity DVT -Discussed with [facility] hospitalist for admission Differential diagnosis: Pneumonia, PE, , DVT, dissection ER treatment provided: See below Diagnostics interpreted by me: ECG: None Cardiac Monitoring: An order was placed for continuous cardiac monitoring. The monitor shows a rate of 87 with sinus rhythm. Laboratory studies: As stated above and show below. Imaging studies: See below. Past Med/Surg History Problem List (Updated 02/13/24 @ 01:34 by Cisco Parsons MD) Internal jugular vein thrombosis (Acute) Acute respiratory failure with hypoxia (Acute) Pneumonia (Acute) CKD (chronic kidney disease), stage IV Late onset Alzheimer's dementia without behavioral disturbance Chronic ITP (idiopathic thrombocytopenia) (Chronic) Medical History Osteoarthritis Osteoporosis SNHL (sensorineural hearing loss) Surgical History S/P hip replacement Family History Aunt Diabetes Social History Smoking Status: Unknown if ever smoked Preferred Language: Tongan Communication Ability: Effective Hospice Clinical Manager Required: No Beliefs That Will Affect Care: None marital status: Current Living Situation: Group Home Feels Safe at Home: Yes Assistive Devices: Wheelchair Allergies Allergies Allergy/AdvReac Type Severity Reaction Status Date / Time No Known Allergies Allergy Unverified 11/16/23 15:49 Home Meds Home Medications Medication Instructions Recorded Confirmed latanoprost 0.005 % eye drops 1 drp OPB QPM 11/16/23 02/11/24 quetiapine 25 mg tablet 25 mg PO BID 11/16/23 02/11/24 risperidone 0.5 mg tablet 0.5 mg PO TID 11/16/23 02/11/24 furosemide 40 mg tablet 40 mg PO MOTUWETHFR@0900 02/11/24 02/11/24 ibuprofen 600 mg tablet (IBU) 600 mg PO DAILY 02/11/24 02/11/24 ibuprofen 600 mg tablet (IBU) 600 mg PO HS PRN pain or swelling 02/11/24 02/11/24 Results & Data (ED) Vital Signs Vital Signs - 24 hr 02/11/24 11:22 02/11/24 12:02 02/11/24 12:37 Temperature 36.8 C Temperature Source Oral Pulse Rate 80 77 Pulse Rate [Apical] 68 Respiratory Rate 20 16 Respiratory Effort / Characteristics Non-Labored Spontaneous Respiratory Depth Normal Normal Blood Pressure 105/64 Blood Pressure [Right Arm] 103/67 Blood Pressure Mean 77 Blood Pressure Mean [Right Arm] 79 Pulse Oximetry 89 L 98 Oxygen Delivery Method Room Air Nasal Cannula Oxygen Flow Rate 2 Sepsis Recent Fever Within 48 Hours No Sepsis New/Unexplained Change in Mental Status No Sepsis Action Taken by Nursing No Action Required Laboratory Data 02/12/24 05:44 02/12/24 05:44 Lab Results 02/11/24 02/11/24 Range/Units 11:55 12:45 WBC 11.43 H (4.8-10.8) K/ul RBC 4.56 (4.20-5.40) M/uL Hgb 12.5 (12.0-16.0) g/dl Hct 39.5 (37.0-47.0) % MCV 86.6 (80.0-100.0) fL MCH 27.4 (25.0-34.0) pg MCHC 31.6 L (32.0-36.0) g/dL RDW Std Deviation 45.0 (36.4-46.3) fL RDW Coeff of Yajaira 14.1 (11.5-14.5) % Plt Count 114 L (130-400) K/uL MPV 12.4 (9.4-12.4) fL Immature Gran % (Auto) 0.6 % Neut % (Auto) 77.5 % Lymph % (Auto) 10.0 % [place] % (Auto) 9.6 % Eos % (Auto) 1.3 % Baso % (Auto) 1.0 % Neut # (Auto) 8.86 H (1.40-6.50) K/uL Lymph # (Auto) 1.14 L (1.20-3.40) K/uL [place] # (Auto) 1.10 H (0.11-0.59) K/uL Eos # (Auto) 0.15 (0.00-0.50) K/uL Baso # (Auto) 0.11 (0.00-0.20) K/uL Immature Gran # (Auto) 0.07 (0.01-0.20) K/uL PT 10.6 (9.0-12.0) Seconds INR 1.0 (0.9-1.1) APTT < 20 L (21-31) Seconds PTT Ratio 0.7 Sodium 141 (136-145) mmol/L Potassium 3.7 (3.5-5.1) mmol/L Chloride 105 (98-107) mmol/L Carbon Dioxide 28 (21-32) mmol/L Anion Gap 8 (3-11) BUN 38 H (6-23) mg/dl Creatinine 1.94 H (0.6-1.2) mg/dl Est Cr Clr Drug Dosing 21.8 ml/min Est GFR ( Amer) 26.9 ml/min Est GFR (Non-Af Amer) 23.2 ml/min BUN/Creatinine Ratio 19.6 (10-20) Glucose 96 (70-99(Fasting)) mg/dl Calcium 8.8 (8.6-10.3) mg/dl Total Bilirubin 1.4 H (0.2-1.0) mg/dl AST 11 L (13-39) U/L ALT 5 L (7-52) U/L Alkaline Phosphatase 48 (34-104) U/L Total Protein 5.8 L (6.0-8.3) gm/dl Albumin 3.5 (3.4-5.0) gm/dl Globulin 2.3 L (2.5-4.0) gm/dl Albumin/Globulin Ratio 1.5 (0.9-2) Adenovirus (PCR) Not Detected (NotDetected) B. pertussis DNA (PCR) Not Detected (NotDetected) B.parapertussis DNA PCR Not Detected (NotDetected) C. pneumoniae DNA (PCR) Not Detected (NotDetected) Coronavirus OC43 (PCR) Not Detected (NotDetected) Coronavirus HKU1 (PCR) Not Detected (NotDetected) Coronavirus 229E (PCR) Not Detected (NotDetected) SARS-CoV-2 (PCR) Not Detected (NotDetected) Coronavirus NL63 (PCR) Not Detected (NotDetected) Human Metapneumovir PCR Not Detected (NotDetected) Influenza Type A (PCR) Not Detected (NotDetected) Influenza Type B (PCR) Not Detected (NotDetected) M. pneumoniae (PCR) Not Detected (NotDetected) Parainfluenza 1 (PCR) Not Detected (NotDetected) Parainfluenza 2 (PCR) Not Detected (NotDetected) Parainfluenza 3 (PCR) Not Detected (NotDetected) Parainfluenza 4 (PCR) Not Detected (NotDetected) RSV (PCR) Not Detected (NotDetected) Entero/Rhino (PCR) Not Detected (NotDetected) Administered Medications Apixaban (Apixaban 2.5 Mg Tab) 2.5 mg PO BID SIOBHAN Stop: 03/12/24 20:59 Last Admin: 02/12/24 20:38 Dose: 2.5 mg Documented By: Admin: 02/12/24 08:48 Dose: 2.5 mg Documented By: Admin: 02/11/24 20:33 Dose: 2.5 mg Documented By: ANDREA Guaifenesin (Guaifenesin Sugar Free 200 Mg/10 Ml Udc) 200 mg PO BID SIOBHAN Stop: 03/12/24 21:44 Last Admin: 02/12/24 20:37 Dose: 200 mg Documented By: Admin: 02/12/24 08:47 Dose: 200 mg Documented By: Admin: 02/11/24 22:39 Dose: 200 mg Documented By: ANDREA Latanoprost (Latanoprost 0.005% Op Soln 2.5 Ml Btl) 1 drops OPB QPM SIOBHAN Stop: 03/12/24 20:59 Last Admin: 02/12/24 20:37 Dose: 1 drops Documented By: Admin: 02/11/24 20:34 Dose: 1 drops Documented By: ANDREA Quetiapine Fumarate (Quetiapine Fumarate 25 Mg Tablet) 25 mg PO BID SIOBHAN Stop: 03/12/24 20:59 Last Admin: 02/12/24 20:37 Dose: 25 mg Documented By: Admin: 02/12/24 08:48 Dose: 25 mg Documented By: Admin: 02/11/24 20:33 Dose: 25 mg Documented By: ANDREA Risperidone (Risperidone 0.5 Mg Tablet) 0.5 mg PO TID SIOBHAN Stop: 03/12/24 20:59 Last Admin: 02/12/24 20:37 Dose: 0.5 mg Documented By: Admin: 02/12/24 13:32 Dose: 0.5 mg Documented By: Admin: 02/12/24 08:48 Dose: 0.5 mg Documented By: Admin: 02/11/24 20:33 Dose: 0.5 mg Documented By: ANDREA Discontinued Medications Doxycycline Hyclate (Doxycycline Hyclate 100 Mg Cap) 100 mg PO NOW STA Stop: 02/12/24 21:20 Last Admin: 02/12/24 21:47 Dose: 100 mg Documented By: ANDREA Doxycycline Monohydrate (Doxycycline Susp 25 Mg/5 Ml 60ml) 100 mg PO BID SIOBHAN Stop: 02/19/24 20:59 Last Admin: 02/12/24 22:14 Dose: Not Given Documented By: ANDREA Guaifenesin (Guaifenesin 600 Mg Tabcr) 600 mg PO Q12 SIOBHAN Stop: 03/12/24 20:59 Last Admin: 02/12/24 00:46 Dose: Not Given Documented By: ANDREA Ceftriaxone Sodium (Rocephin) 2,000 mg in 50 mls @ 100 mls/hr IV NOW STA Stop: 02/11/24 13:25 Last Infusion: 02/11/24 13:43 Dose: Infused Documented By: Admin: 02/11/24 13:12 Dose: 100 mls/hr Documented By: TRIP Azithromycin 500 mg/ Dextrose 255 mls @ 125 mls/hr IV NOW ONE Stop: 02/11/24 14:58 Last Infusion: 02/11/24 17:19 Dose: Infused Documented By: Admin: 02/11/24 15:02 Dose: 125 mls/hr Documented By: TRIP Ceftriaxone Sodium 2,000 mg/ (Dextrose) 70 mls @ 100 mls/hr IV Q24H SIOBHAN; Protocol Stop: 02/12/24 14:01 Last Infusion: 02/12/24 14:22 Dose: Infused Documented By: Admin: 02/12/24 13:32 Dose: 100 mls/hr Documented By: AV Doxycycline Hyclate 100 mg/ (Dextrose) 100 mls @ 50 mls/hr IV Q12H SIOBHAN Stop: 02/18/24 20:59 Last Infusion: 02/12/24 11:09 Dose: Infused Documented By: Infusion: 02/12/24 09:15 Dose: 50 mls/hr Documented By: Infusion: 02/12/24 08:57 Dose: 0 mls/hr Documented By: Admin: 02/12/24 08:46 Dose: 50 mls/hr Documented By: Infusion: 02/11/24 22:51 Dose: Infused Documented By: Admin: 02/11/24 20:46 Dose: 50 mls/hr Documented By: ANDREA Imaging Data Radiologist's Impression: Chest X-Ray 02/11/24 11:42 XR chest 1V not portable CLINICAL HISTORY: Desaturation. COMPARISON STUDY: Chest CT 02/26/2018. Chest radiograph November 16, 2023. FINDINGS: Patient is rotated. Low lung volumes are unchanged. There is a small right pleural effusion. Left basilar opacity favors atelectasis. Right midlung opacity has developed since prior exam. There is no evidence for pulmonary edema. Cardiomegaly is unchanged. Mediastinal contours are stable. No pneumothorax. IMPRESSION: 1. Right midlung opacity which has developed since prior exam. This favors a focus of pneumonia. Radiographic follow-up to ensure resolution is recommended. 2. Small right pleural effusion. 3. Left basilar opacity suggestive of atelectasis. ACT 112: Negative or not required by law. Electronically signed by: Dc Huang M.D. 02/11/2024 12:14 PM Hand X-Ray 02/11/24 11:54 XR hand LT min 3V routine CLINICAL HISTORY: swelling TECHNIQUE: 3 views of the left hand were obtained. Comparison: Comparison is made to left hip radiograph 04/29/2019 FINDINGS: There is no evidence of an acute fracture. Joint space narrowing and osteophyte formation is seen most prominent in the distal interphalangeal joints and first carpometacarpal joint. Soft tissue swelling is seen. IMPRESSION: Worsening degenerative changes and soft tissue swelling without evidence of acute fracture. ACT 112: Negative or not required by law. Electronically signed by: Abel Kovacs M.D. 02/11/2024 12:16 PM Extremity Venous Study 02/11/24 12:57 US venous doppler UE LT CLINICAL HISTORY: DVT? PROCEDURE: Right upper extremity real-time compression venous ultrasound with Duplex and color Doppler imaging. Comparison: None available at the time of this dictation. FINDINGS/IMPRESSION: There is a thrombus in the mid anterior wall of the left internal jugular vein with internal vascularity measuring 3.6 cm in length. This may represent tumor thrombus of unknown origin. Soft tissue edema extends from the left mid forearm to the left wrist. ACT 112: Negative or not required by law. Electronically signed by: Abel Kovacs M.D. 02/11/2024 2:54 PM Discharge Plan Visit Data Chief Complaint: Swelling/Edema to Extremity Stated Complaint: L HAND & R FOOT EDEMA ED Provider: Cisco Parsons Discharge Problem: Pneumonia, Acute respiratory failure with hypoxia, Internal jugular vein thrombosis Patient Disposition: Admitted As Inpatient Discharge Instructions Interventions: ED Discharge Assessment Last Done: 02/11/24 14:35
[2024-02-11] MEDS: cefTRIAXone SODIUM 2,000 MG/50 ML BAG IV STA (13:12)
--- NOTE | 2024-02-11 14:02 | History & Physical Report ---
Date of Service February 11, 2024 Assessment & Plan (1) Acute respiratory failure with hypoxia: (2) Pneumonia: (3) Internal jugular vein thrombosis: (4) CKD (chronic kidney disease), stage IV: (5) Late onset Alzheimer's dementia without behavioral disturbance: Plan This is an 84yo F with from [facility] with PMH of dementia, CKD IV, chronic ITP and other medical problems listed below who was sent in for concern of left hand swelling and was found to have L IJ vein thrombus Left internal jugular vein thrombus Sent from [facility] for hand swelling L hand XR without evidence of fracture L UE venous doppler with a thrombus in the mid anterior wall of the left internal jugular vein with internal vascularity measuring 3.6 cm in length. This may represent tumor thrombus of unknown origin. Soft tissue edema extends from the left mid forearm to the left wrist Discussed with Dr. Parada of heme/onc - recommends anticoagulating with Eliquis 2.5mg BID, likely to need [facility] anticoagulation if able to tolerate. Based on age, advanced dementia and no known malignancy, does not recommend any additional imaging or work up at this time. Known h/o chronic ITP but no bleeding history, platelets >100. OK to follow up with heme/onc in clinic ( previously followed with Dr. Parsons in 2016) Pneumonia Afebrile, mild leukocytosis 11.43K CXR with Right midlung opacity which has developed since prior exam. This favors a focus of pneumonia. Radiographic follow-up to ensure resolution is recommended Continue empiric rocephin, doxy PRN duo nebs, mucinex Follow blood, sputum cx CKD IV Cr 1.94 (bl mid-high 1s) Reassess volume status and Cr in AM before continuing lasix H/o chronic ITP Stable history, last seen by heme onc in 2016 No signs of bleeding Platelets 114 today Repeat CBC in AM Alzheimer's dementia Stable, at baseline (fluctuates with verbal ability), ambulates with wheelchair at baseline Continue quetiapine BID, risperidone TID DVT Ppx: Eliquis Code status: FULL CODE for now - unable to reach POA over the phone this afternoon (OA/spouse Prasanth ([phone])) PCP: Chris Dispo: admitted to med/surg Patient seen in collaboration with Dr. Parker. Please see addendum. I spent a total of 80 minutes coordinating, documenting, and providing care for this patient excluding time spent in the performance of separately billed services. History of Present Illness Chief Complaint: hand swelling Primary Care Provider: Aisha Wang This is an 84yo F with from [facility] with PMH of dementia, CKD IV, chronic ITP and other medical problems listed below who was sent in for concern of left hand swelling. Patient not on any information is not oriented to herself, time or place. She was non-verbal during evaluation. Per discussion with [facility] Staff, staff called EMS due to patient having swelling of the left hand and arm, right foot. Has been taking lasix 40mg Mo-Fr. Per staff at [facility], she is sometimes verbal but sometimes just silently makes eye contact. Patient is wheelchair bound, sometimes feeds herself but "on bad days" there are issues with swallowing and needs cueing. Called POA/ spouse and awaiting call back. Allergies Allergy/AdvReac Type Severity Reaction Status Date / Time No Known Allergies Allergy Unverified 11/16/23 15:49 Home Medications Medication Instructions Recorded Confirmed Type latanoprost 0.005 % eye drops 1 drp OPB QPM 11/16/23 02/11/24 History quetiapine 25 mg tablet 25 mg PO BID 11/16/23 02/11/24 History risperidone 0.5 mg tablet 0.5 mg PO TID 11/16/23 02/11/24 History furosemide 40 mg tablet 40 mg PO MOTUWETHFR@0900 02/11/24 02/11/24 History ibuprofen 600 mg tablet (IBU) 600 mg PO DAILY 02/11/24 02/11/24 History ibuprofen 600 mg tablet (IBU) 600 mg PO HS PRN pain or swelling 02/11/24 02/11/24 History Past Med/Surg History Problem List (Updated 02/11/24 @ 16:52 by Edie Alvarado PA-C) Internal jugular vein thrombosis Acute respiratory failure with hypoxia Pneumonia CKD (chronic kidney disease), stage IV Late onset Alzheimer's dementia without behavioral disturbance Chronic ITP (idiopathic thrombocytopenia) (Chronic) Medical History Osteoarthritis Osteoporosis SNHL (sensorineural hearing loss) Surgical History S/P hip replacement Family History Aunt Diabetes Social History Smoking Status: Unknown if ever smoked Preferred Language: Bhutanese Communication Ability: Effective Complaint Analyst Required: No Beliefs That Will Affect Care: None marital status: Current Living [facility]uation: [facility] Feels Safe at Home: Yes Assistive Devices: Wheelchair Review of Systems Review of Systems: At least ten systems reviewed and negative except as noted in the HPI. Physical Exam Physical Exam: General Appearance: WD/WN, vitals as above, NAD, sitting up in bed, demented, non-verbal Head: normocephalic, atraumatic Eyes: normal inspection, PERRL, conjunctivae normal, anicteric sclerae ENT: external ear and nose normal, oropharynx normal Neck: normal visual inspection, trachea midline, no thyromegaly Respiratory: normal respiratory effort, coarse breath sounds. No accessory muscle use Cardiovascular: regular rate, rhythm, normal peripheral pulses, no BLE edema. Vessels: no JVD Chest: normal inspection of chest Abdomen/GI: normal bowel sounds, soft, nontender, no hepatosplenomegaly Extremities/Musculoskeletal: + L hand with minimal swelling extending to LUE. No cyanosis or clubbing, extremities motor strength 5/5 Neurologic: PERRL, EOMI, accommodation nl, no face palsy, no dysarthria, CN's II-XI intact bilaterally and moves all extremities Psychiatric: Alert but oriented x 0 Skin: no rashes, normal color, warm/dry Results & Data Results & Data Vital Signs (Past 12 Hours) Vital Signs Temp Pulse Pulse Resp BP BP Pulse Ox 02/11/24 12:37 68 16 103/67 98 02/11/24 12:02 77 02/11/24 11:22 36.8 C 80 20 105/64 89 L O2 Del Method O2 Flow Rate 02/11/24 12:37 Nasal Cannula 2 02/11/24 12:02 02/11/24 11:22 Room Air Laboratory Results Short CBC 02/11/24 Range/Units 11:55 WBC 11.43 H (4.8-10.8) K/ul Hgb 12.5 (12.0-16.0) g/dl Hct 39.5 (37.0-47.0) % Plt Count 114 L (130-400) K/uL BMP 02/11/24 11:55 Sodium 141 Potassium 3.7 Chloride 105 Carbon Dioxide 28 BUN 38 H Creatinine 1.94 H Glucose 96 Calcium 8.8 Liver Function 02/11/24 Range/Units 11:55 Total Bilirubin 1.4 H (0.2-1.0) mg/dl AST 11 L (13-39) U/L ALT 5 L (7-52) U/L Alkaline Phosphatase 48 (34-104) U/L Albumin 3.5 (3.4-5.0) gm/dl Diagnostic Findings Chest X-Ray 02/11/24 11:42 XR chest 1V not portable CLINICAL HISTORY: Desaturation. COMPARISON STUDY: Chest CT 02/26/2018. Chest radiograph November 16, 2023. FINDINGS: Patient is rotated. Low lung volumes are unchanged. There is a small right pleural effusion. Left basilar opacity favors atelectasis. Right midlung opacity has developed since prior exam. There is no evidence for pulmonary edema. Cardiomegaly is unchanged. Mediastinal contours are stable. No pneumothorax. IMPRESSION: 1. Right midlung opacity which has developed since prior exam. This favors a focus of pneumonia. Radiographic follow-up to ensure resolution is recommended. 2. Small right pleural effusion. 3. Left basilar opacity suggestive of atelectasis. ACT 112: Negative or not required by law. Electronically signed by: Dc Huang M.D. 02/11/2024 12:14 PM Hand X-Ray 02/11/24 11:54 XR hand LT min 3V routine CLINICAL HISTORY: swelling TECHNIQUE: 3 views of the left hand were obtained. Comparison: Comparison is made to left hip radiograph 04/29/2019 FINDINGS: There is no evidence of an acute fracture. Joint space narrowing and osteophyte formation is seen most prominent in the distal interphalangeal joints and first carpometacarpal joint. Soft tissue swelling is seen. IMPRESSION: Worsening degenerative changes and soft tissue swelling without evidence of acute fracture. ACT 112: Negative or not required by law. Electronically signed by: Abel Kovacs M.D. 02/11/2024 12:16 PM Extremity Venous Study 02/11/24 12:57 US venous doppler UE LT CLINICAL HISTORY: DVT? PROCEDURE: Right upper extremity real-time compression venous ultrasound with Duplex and color Doppler imaging. Comparison: None available at the time of this dictation. FINDINGS/IMPRESSION: There is a thrombus in the mid anterior wall of the left internal jugular vein with internal vascularity measuring 3.6 cm in length. This may represent tumor thrombus of unknown origin. Soft tissue edema extends from the left mid forearm to the left wrist. ACT 112: Negative or not required by law. Electronically signed by: Abel Kovacs M.D. 02/11/2024 2:54 PM Code Status & VTE Plan VTE Prophylaxis Plan VTE Prophylaxis will be ordered: Yes Supervising Physician Co-Signing Physician Notes delayed entry date of service noted above Attending Addendum: care coordinated in detail with MARIUSZ Alvarado please refer to her notes for full details, I agree with her notes patient seen and examined, records reviewed by myself as well Diagnoses and plan of care formulated with MARIUSZ Alvarado, please refer to her notes above Alejandro Parker MD
[2024-02-11 14:04] LABS: Adenovirus PCR Not Detected (NotDetected); Bordetella parapertussis PCR Not Detected (NotDetected); Bordetella pertussis PCR Not Detected (NotDetected); Chlamydia pneumoniae PCR Not Detected (NotDetected); Coronavirus 229E PCR Not Detected (NotDetected); Coronavirus CoV-2 (COVID19)PCR Not Detected (NotDetected); Coronavirus HKU1 PCR Not Detected (NotDetected); Coronavirus NL63 PCR Not Detected (NotDetected); Coronavirus OC43PCR Not Detected (NotDetected); Human Metapneumovirus PCR Not Detected (NotDetected); Influenza A PCR Not Detected (NotDetected); Influenza B PCR Not Detected (NotDetected); Mycoplasma pneumoniae PCR Not Detected (NotDetected); Parainfluenza Virus 1 PCR Not Detected (NotDetected); Parainfluenza Virus 2 PCR Not Detected (NotDetected); Parainfluenza Virus 3 PCR Not Detected (NotDetected); Parainfluenza Virus 4 PCR Not Detected (NotDetected); Respiratory Syncytial VirusPCR Not Detected (NotDetected); Rhinovirus/Enterovirus PCR Not Detected (NotDetected)
--- NOTE | 2024-02-11 14:56 | Ultrasound Report ---
US venous doppler UE LT CLINICAL HISTORY: DVT? PROCEDURE: Right upper extremity real-time compression venous ultrasound with Duplex and color Dopple r imaging. Comparison: None available at the time of this dictation. FINDINGS/IMPRESSION: There is a thrombus in the mid anterior wall of the left internal jugular vein with internal vascular ity measuring 3.6 cm in length. This may represent tumor thrombus of unknown origin. Soft tissue joy a extends from the left mid forearm to the left wrist. ACT 112: Negative or not required by law. Electronically signed by: Abel Kovacs M.D. 02/11/2024 2:54 PM
[2024-02-11] MEDS: AZITHROMYCIN 500 MG in DEXTROSE 5% 250 ML IV ONE (15:02)
[2024-02-11] MEDS ORDERED: POLYETHYLENE (MIRALAX) 17 GM PACK PO PRN (15:44)
[2024-02-11] MEDS ORDERED: ACETAMINOPHEN 325 MG TAB PO PRN (15:44)
[2024-02-11] MEDS: QUEtiapine FUMARATE 25 MG TABLET PO SCH (20:33)
[2024-02-11] MEDS: risperiDONE 0.5 MG TABLET PO SCH (20:33)
[2024-02-11] MEDS: APIXABAN 2.5 MG TAB PO SCH (20:33)
[2024-02-11] MEDS: LATANOPROST 0.005% OP SOLN 2.5 ML BTL OPB SCH (20:34)
[2024-02-11] MEDS: DOXYCYCLINE HYCLATE 100 MG in DEXTROSE 5% MINI-B 100 ML IV SCH (20:46)
[2024-02-11] MEDS ORDERED: ALBUT/IPRATROP 3MG/0.5MG NEB 3 ML VIAL NEB PRN (20:52)
[2024-02-11] MEDS: guaiFENesin SUGAR FREE 200 MG/10 ML UDC PO SCH (22:39)
[2024-02-12] MEDS: guaiFENesin 600 MG TABCR PO SCH (00:46)
[2024-02-12 06:25] LABS: Hematocrit (blood only) 38.7 % (37.0-47.0); Hemoglobin 12.4 g/dl (12.0-16.0); Mean Corpuscular Hemoglobin 27.7 pg (25.0-34.0); Mean Corpuscular Volume 86.4 fL (80.0-100.0); Platelet Count 135 K/uL (130-400); RDW Coefficient of Variation 13.9 % (11.5-14.5); Red Blood Count 4.48 M/uL (4.20-5.40); White Blood Count 12.46 K/ul (4.8-10.8)
[2024-02-12 06:41] LABS: BUN Creatinine Ratio 21.5 (10-20); Calcium 8.5 mg/dl (8.6-10.3); Creatinine Clr Calc Pharmacy 19.3 ml/min; Est GFR (African American) 28.3 ml/min; Est GFR (Non-African American) 24.4 ml/min; Potassium 3.7 mmol/L (3.5-5.1)
[2024-02-12] MEDS: cefTRIAXone SODIUM 2,000 MG in DEXTROSE 5% 50 ML IV SCH (13:32)
[2024-02-12] MEDS ORDERED: AZITHROMYCIN 500 MG in DEXTROSE 5% 250 ML IV SCH (14:30)
--- NOTE | 2024-02-12 19:02 | Hospitalist Progress Note ---
Date of Service February 12, 2024 Assessment & Plan (1) Acute respiratory failure with hypoxia: (2) Pneumonia: (3) Internal jugular vein thrombosis: (4) CKD (chronic kidney disease), stage IV: (5) Late onset Alzheimer's dementia without behavioral disturbance: Plan This is an 84yo F with from [facility] with PMH of dementia, CKD IV, chronic ITP and other medical problems listed below who was sent in for concern of left hand swelling and was found to have L IJ vein thrombus Left internal jugular vein thrombus Sent from [facility] for hand swelling L hand XR without evidence of fracture L UE venous doppler with a thrombus in the mid anterior wall of the left internal jugular vein with internal vascularity measuring 3.6 cm in length. This may represent tumor thrombus of unknown origin. Soft tissue edema extends from the left mid forearm to the left wrist prior hospitalist discussed with Dr. Parada of heme/onc - recommends anticoagulating with Eliquis 2.5mg BID, likely to need correction anticoagulation if able to tolerate. Based on age, advanced dementia and no known malignancy, does not recommend any additional imaging or work up at this time. Known h/o chronic ITP but no bleeding history, platelets >100. OK to follow up with h jaxon/onc in clinic (previously followed with Dr. Parsons in 2016) patient has been started on Eliquis 2.5 mg twice daily. Pneumonia Afebrile, mild leukocytosis 12K CXR with Right midlung opacity which has developed since prior exam. This favors a focus of pneumonia. Radiographic follow-up to ensure resolution is recommended Continue empiric rocephin, doxy PRN duo nebs, mucinex Blood culture remains negative CKD IV stable at baseline, 1.86 today. Volume status stable. H/o chronic ITP Stable history, last seen by heme onc in 2016 No signs of bleeding. Thrombocytopenia resolved, Platelet count 135 today. Alzheimer's dementia Stable, at baseline (fluctuates with verbal ability), ambulates with wheelchair at baseline Continue quetiapine BID, risperidone TID Notified by RN regarding the report from [facility] regarding worsening swelling recently. Speech evaluation not available today. Will ask speech to evaluate tomorrow. DVT Ppx: Eliquis Dispo: [facility] [employer] bonnie tomorrow. PT OT evaluation pending. Updated at bedside Time spent approximately 35 minutes Admission and Anticipated Discharge Date Admission Date: February 11, 2024 Subjective patient was seen and examined at bedside. She is awake alert feeding herself. She feels fine. answer simple questions. Denies any pain, shortness of breath, fever or chills. later arrived who I spoke to at bedside upon request and obtained more information regarding her as well as provided the medical update. Review of Systems Review of Systems: All systems reviewed & are unremarkable except as noted in Subjective Physical Exam Physical Exam: General: Frail elderly female, sitting comfortably in bed eating lunch, not in distress, on room air HEENT: EOMI, DAY, MMM Chest: Clear breath sounds bilaterally, no wheezes or crackles CVS: Regular rate and rhythm, normal heart sounds, no murmur Abdomen: Soft, non tender, not distended, normal bowel sounds Neuro: Awake, alert, oriented, conversing well, non focal Extremities: left upper extremity with minimal swelling of the left hand. Results & Data Results & Data Vital Signs (Past 12 Hours) Vital Signs Temp Pulse Resp BP Pulse Ox O2 Del Method 02/12/24 15:01 36.7 C 84 16 131/81 95 Room Air 02/12/24 09:30 Room Air 02/12/24 07:00 36.5 C 69 16 117/62 94 Room Air Laboratory Results Short CBC 02/12/24 Range/Units 05:44 WBC 12.46 H (4.8-10.8) K/ul Hgb 12.4 (12.0-16.0) g/dl Hct 38.7 (37.0-47.0) % Plt Count 135 (130-400) K/uL BMP 02/12/24 05:44 Sodium 143 Potassium 3.7 Chloride 103 Carbon Dioxide 31 BUN 40 H Creatinine 1.86 H Glucose 91 Calcium 8.5 L
[2024-02-12] MEDS: DOXYCYCLINE SUSP 25 MG/5 ML 60ML PO SCH (20:38)
[2024-02-12] MEDS: DOXYCYCLINE HYCLATE 100 MG CAP PO STA (21:47)
[2024-02-13 06:51] LABS: Hematocrit (blood only) 36.6 % (37.0-47.0); Hemoglobin 11.8 g/dl (12.0-16.0); Mean Corpuscular Hemoglobin 27.3 pg (25.0-34.0); Mean Corpuscular Hgb Conc 32.2 g/dL (32.0-36.0); Mean Corpuscular Volume 84.5 fL (80.0-100.0); Mean Platelet Volume 11.6 fL (9.4-12.4); Platelet Count 154 K/uL (130-400); RDW Coefficient of Variation 13.7 % (11.5-14.5); RDW Standard Deviation 42.5 fL (36.4-46.3); Red Blood Count 4.33 M/uL (4.20-5.40); White Blood Count 11.79 K/ul (4.8-10.8)
[2024-02-13 08:09] LABS: BUN Creatinine Ratio 27.7 (10-20); Calcium 8.4 mg/dl (8.6-10.3); Creatinine Clr Calc Pharmacy 23.2 ml/min; Est GFR (African American) 35.3 ml/min; Est GFR (Non-African American) 30.4 ml/min; Potassium 3.9 mmol/L (3.5-5.1)
[2024-02-13] MEDS: DOXYCYCLINE HYCLATE 100 MG CAP PO SCH (08:40)
[2024-02-13] MEDS: cefTRIAXone SODIUM 2,000 MG/50 ML BAG IV SCH (13:47)
--- NOTE | 2024-02-13 15:59 | Hospitalist Progress Note ---
Date of Service February 13, 2024 Assessment & Plan (1) Acute respiratory failure with hypoxia: (2) Pneumonia: (3) Internal jugular vein thrombosis: (4) CKD (chronic kidney disease), stage IV: (5) Late onset Alzheimer's dementia without behavioral disturbance: Plan This is an 84yo F with from [facility] with PMH of dementia, CKD IV, chronic ITP and other medical problems listed below who was sent in for concern of left hand swelling and was found to have L IJ vein thrombus Left internal jugular vein thrombus Sent from [facility] for hand swelling L hand XR without evidence of fracture L UE venous doppler with a thrombus in the mid anterior wall of the left internal jugular vein with internal vascularity measuring 3.6 cm in length. This may represent tumor thrombus of unknown origin. Soft tissue edema extends from the left mid forearm to the left wrist prior hospitalist discussed with Dr. Parada of heme/onc - recommends anticoagulating with Eliquis 2.5mg BID, likely to need senior living anticoagulation if able to tolerate. Based on age, advanced dementia and no known malignancy, does not recommend any additional imaging or work up at this time. Known h/o chronic ITP but no bleeding history, platelets >100. OK to follow up with he me/onc in clinic (previously followed with Dr. Parsons in 2016) patient has been started on Eliquis 2.5 mg twice daily. Pneumonia Afebrile, mild leukocytosis 11 and improving CXR with Right midlung opacity which has developed since prior exam. This favors a focus of pneumonia. Radiographic follow-up to ensure resolution is recommended Continue empiric rocephin, doxy PRN duo nebs, mucinex Blood culture remains negative CKD IV stable at baseline, creatinine improving to 1.55 today. Volume status stable. H/o chronic ITP Stable history, last seen by heme onc in 2016 No signs of bleeding. Thrombocytopenia resolved, Platelet count 135 today. Alzheimer's dementia Stable, at baseline (fluctuates with verbal ability), ambulates with wheelchair at baseline Continue quetiapine BID, risperidone TID Notified by RN regarding the report from [facility] regarding worsening swelling recently. Speech evaluation evaluated patient today and did not identify concerns.. DVT Ppx: Eliquis Dispo: PT cleared him to go back to the facility. She is stable. Anticipate discharge tomorrow. Time spent approximately 35 minutes Admission and Anticipated Discharge Date Admission Date: February 11, 2024 Subjective Patient was seen and examined at bedside. She feels fine. Eating breakfast. no fever, chills, chest pain, shortness of breath, nausea or vomiting. Review of Systems Review of Systems: All systems reviewed & are unremarkable except as noted in Subjective Physical Exam Physical Exam: General: Frail elderly female, sitting comfortably in bed eating lunch, not in distress, on room air HEENT: EOMI, DAY, MMM Chest: Clear breath sounds bilaterally, no wheezes or crackles CVS: Regular rate and rhythm, normal heart sounds, no murmur Abdomen: Soft, non tender, not distended, normal bowel sounds Neuro: Awake, alert, conversing Appropriately, non focal Extremities: left upper extremity with minimal swelling of the left hand. Results & Data Results & Data Vital Signs (Past 12 Hours) Vital Signs Temp Pulse Resp BP Pulse Ox O2 Del Method 02/13/24 09:43 Room Air 02/13/24 07:37 36.6 C 76 19 103/60 93 Room Air
--- NOTE | 2024-02-14 13:52 | Discharge Summary ---
Date of Service February 14, 2024 Admission HPI Per Admitting Provider This is an 84yo F with from [facility] with PMH of dementia, CKD IV, chronic ITP and other medical problems listed below who was sent in for concern of left hand swelling. Patient not on any information is not oriented to herself, time or place. She was non-verbal during evaluation. Per discussion with [facility] Staff, staff called EMS due to patient having swelling of the left hand and arm, right foot. Has been taking lasix 40mg Mo-Fr. Per staff at [facility], she is sometimes verbal but sometimes just silently makes eye contact. Patient is wheelchair bound, sometimes feeds herself but "on bad days" there are issues with swallowing and needs cueing. Called POA/ spouse and awaiting call back. Admission Exam Per Admitting Provider General Appearance: WD/WN, vitals as above, NAD, sitting up in bed, demented, non-verbal Head: normocephalic, atraumatic Eyes: normal inspection, PERRL, conjunctivae normal, anicteric sclerae ENT: external ear and nose normal, oropharynx normal Neck: normal visual inspection, trachea midline, no thyromegaly Respiratory: normal respiratory effort, coarse breath sounds. No accessory muscle use Cardiovascular: regular rate, rhythm, normal peripheral pulses, no BLE edema. Vessels: no JVD Chest: normal inspection of chest Abdomen/GI: normal bowel sounds, soft, nontender, no hepatosplenomegaly Extremities/Musculoskeletal: + L hand with minimal swelling extending to LUE. No cyanosis or clubbing, extremities motor strength 5/5 Neurologic: PERRL, EOMI, accommodation nl, no face palsy, no dysarthria, CN's II-XI intact bilaterally and moves all extremities Psychiatric: Alert but oriented x 0 Skin: no rashes, normal color, warm/dry Principal Diagnosis Left IJV thrombosis, Community acquired pneumonia Discharge Exam General: Frail elderly female, sitting comfortably in bed eating lunch, not in distress, on room air HEENT: EOMI, DAY, MMM Chest: Clear breath sounds bilaterally, no wheezes or crackles CVS: Regular rate and rhythm, normal heart sounds, no murmur Abdomen: Soft, non tender, not distended, normal bowel sounds Neuro: Awake, alert, conversing Appropriately, non focal Extremities: left upper extremity with minimal swelling of the left hand. Discharge Data Allergies Allergy/AdvReac Type Severity Reaction Status Date / Time No Known Allergies Allergy Unverified 11/16/23 15:49 Consultations 02/11/24 13:22 ED Decision to Admit Stat Ordered Studies 02/11/24 12:57 US venous doppler UE LT Stat Laboratory Results WBC 11.79 K/ul (4.8-10.8) H 02/13/24 05:56 RBC 4.33 M/uL (4.20-5.40) 02/13/24 05:56 Hgb 11.8 g/dl (12.0-16.0) L 02/13/24 05:56 Hct 36.6 % (37.0-47.0) L 02/13/24 05:56 MCV 84.5 fL (80.0-100.0) 02/13/24 05:56 MCH 27.3 pg (25.0-34.0) 02/13/24 05:56 MCHC 32.2 g/dL (32.0-36.0) 02/13/24 05:56 RDW Std Deviation 42.5 fL (36.4-46.3) 02/13/24 05:56 RDW Coeff of Yajaira 13.7 % (11.5-14.5) 02/13/24 05:56 Plt Count 154 K/uL (130-400) 02/13/24 05:56 MPV 11.6 fL (9.4-12.4) 02/13/24 05:56 Immature Gran % (Auto) 0.6 % 02/11/24 11:55 Neut % (Auto) 77.5 % 02/11/24 11:55 Lymph % (Auto) 10.0 % 02/11/24 11:55 [place] % (Auto) 9.6 % 02/11/24 11:55 Eos % (Auto) 1.3 % 02/11/24 11:55 Baso % (Auto) 1.0 % 02/11/24 11:55 Neut # (Auto) 8.86 K/uL (1.40-6.50) H 02/11/24 11:55 Lymph # (Auto) 1.14 K/uL (1.20-3.40) L 02/11/24 11:55 [place] # (Auto) 1.10 K/uL (0.11-0.59) H 02/11/24 11:55 Eos # (Auto) 0.15 K/uL (0.00-0.50) 02/11/24 11:55 Baso # (Auto) 0.11 K/uL (0.00-0.20) 02/11/24 11:55 Immature Gran # (Auto) 0.07 K/uL (0.01-0.20) 02/11/24 11:55 PT 10.6 Seconds (9.0-12.0) 02/11/24 11:55 INR 1.0 (0.9-1.1) 02/11/24 11:55 APTT < 20 Seconds (21-31) L 02/11/24 11:55 PTT Ratio 0.7 02/11/24 11:55 Sodium 142 mmol/L (136-145) 02/13/24 05:56 Potassium 3.9 mmol/L (3.5-5.1) 02/13/24 05:56 Chloride 107 mmol/L (98-107) 02/13/24 05:56 Carbon Dioxide 28 mmol/L (21-32) 02/13/24 05:56 Anion Gap 7 (3-11) 02/13/24 05:56 BUN 43 mg/dl (6-23) H 02/13/24 05:56 Creatinine 1.55 mg/dl (0.6-1.2) H D 02/13/24 05:56 Est Cr Clr Drug Dosing 23.2 ml/min 02/13/24 05:56 Est GFR ( Amer) 35.3 ml/min 02/13/24 05:56 Est GFR (Non-Af Amer) 30.4 ml/min 02/13/24 05:56 BUN/Creatinine Ratio 27.7 (10-20) H 02/13/24 05:56 Glucose 105 mg/dl (70-99(Fasting)) H 02/13/24 05:56 Calcium 8.4 mg/dl (8.6-10.3) L 02/13/24 05:56 Total Bilirubin 1.4 mg/dl (0.2-1.0) H 02/11/24 11:55 AST 11 U/L (13-39) L 02/11/24 11:55 ALT 5 U/L (7-52) L 02/11/24 11:55 Alkaline Phosphatase 48 U/L (34-104) 02/11/24 11:55 Total Protein 5.8 gm/dl (6.0-8.3) L 02/11/24 11:55 Albumin 3.5 gm/dl (3.4-5.0) 02/11/24 11:55 Globulin 2.3 gm/dl (2.5-4.0) L 02/11/24 11:55 Albumin/Globulin Ratio 1.5 (0.9-2) 02/11/24 11:55 Procalcitonin Cancelled 02/11/24 16:44 Nasal Screen MRSA (PCR) Negative (Negative) 02/11/24 Unknown Adenovirus (PCR) Not Detected (NotDetected) 02/11/24 12:45 B. pertussis DNA (PCR) Not Detected (NotDetected) 02/11/24 12:45 B.parapertussis DNA PCR Not Detected (NotDetected) 02/11/24 12:45 C. pneumoniae DNA (PCR) Not Detected (NotDetected) 02/11/24 12:45 Coronavirus OC43 (PCR) Not Detected (NotDetected) 02/11/24 12:45 Coronavirus HKU1 (PCR) Not Detected (NotDetected) 02/11/24 12:45 Coronavirus 229E (PCR) Not Detected (NotDetected) 02/11/24 12:45 SARS-CoV-2 (PCR) Not Detected (NotDetected) 02/11/24 12:45 Coronavirus NL63 (PCR) Not Detected (NotDetected) 02/11/24 12:45 Human Metapneumovir PCR Not Detected (NotDetected) 02/11/24 12:45 Influenza Type A (PCR) Not Detected (NotDetected) 02/11/24 12:45 Influenza Type B (PCR) Not Detected (NotDetected) 02/11/24 12:45 M. pneumoniae (PCR) Not Detected (NotDetected) 02/11/24 12:45 Parainfluenza 1 (PCR) Not Detected (NotDetected) 02/11/24 12:45 Parainfluenza 2 (PCR) Not Detected (NotDetected) 02/11/24 12:45 Parainfluenza 3 (PCR) Not Detected (NotDetected) 02/11/24 12:45 Parainfluenza 4 (PCR) Not Detected (NotDetected) 02/11/24 12:45 RSV (PCR) Not Detected (NotDetected) 02/11/24 12:45 Entero/Rhino (PCR) Not Detected (NotDetected) 02/11/24 12:45 Impressions Chest X-Ray 02/11/24 11:42 XR chest 1V not portable CLINICAL HISTORY: Desaturation. COMPARISON STUDY: Chest CT 02/26/2018. Chest radiograph November 16, 2023. FINDINGS: Patient is rotated. Low lung volumes are unchanged. There is a small r ight pleural effusion. Left basilar opacity favors atelectasis. Right midlung opacity has developed since prior exam. There is no evidence for pulmonary edema. Cardiomegaly is unchanged. Mediastinal contours are stable. No pneumothorax. IMPRESSION: 1. Right midlung opacity which has developed since prior exam. This favors a focus of pneumonia. Radiographic follow-up to ensure resolution is recommended. 2. Small right pleural effusion. 3. Left basilar opacity suggestive of atelectasis. ACT 112: Negative or not required by law. Electronically signed by: Dc Huang M.D. 02/11/2024 12:14 PM Hand X-Ray 02/11/24 11:54 XR hand LT min 3V routine CLINICAL HISTORY: swelling TECHNIQUE: 3 views of the left hand were obtained. Comparison: Comparison is made to left hip radiograph 04/29/2019 FINDINGS: There is no evidence of an acute fracture. Joint space narrowing and osteophyte formation is seen most prominent in the distal interphalangeal joints and first carpometacarpal joint. Soft tissue swelling is seen. IMPRESSION: Worsening degenerative changes and soft tissue swelling without evidence of acute fracture. ACT 112: Negative or not required by law. Electronically signed by: Abel Kovacs M.D. 02/11/2024 12:16 PM Extremity Venous Study 02/11/24 12:57 US venous doppler UE LT CLINICAL HISTORY: DVT? PROCEDURE: Right upper extremity real-time compression venous ultrasound with Duplex and color Doppler imaging. Comparison: None available at the time of this dictation. FINDINGS/IMPRESSION: There is a thrombus in the mid anterior wall of the left internal jugular vein with internal vascularity measuring 3.6 cm in length. This may represent tumor thrombus of unknown origin. Soft tissue edema extends from the left mid forearm to the left wrist. ACT 112: Negative or not required by law. Electronically signed by: Abel Kovacs M.D. 02/11/2024 2:54 PM Hospital Course (1) Acute respiratory failure with hypoxia: (2) Pneumonia: (3) Internal jugular vein thrombosis: (4) CKD (chronic kidney disease), stage IV: (5) Late onset Alzheimer's dementia without behavioral disturbance: Plan This is an 84yo F with from [facility] with PMH of dementia, CKD IV, chronic ITP and other medical problems listed below who was sent in for concern of left hand swelling and was found to have L IJ vein thrombus Left internal jugular vein thrombus Sent from [facility] for hand swelling L hand XR without evidence of fracture L UE venous doppler with a thrombus in the mid anterior wall of the left internal jugular vein with internal vascularity measuring 3.6 cm in length. This may represent tumor thrombus of unknown origin. Soft tissue edema extends from the left mid forearm to the left wrist prior hospitalist discussed with Dr. Parada of heme/onc - recommends anticoagulating with Eliquis 2.5mg BID, likely to need senior care anticoagulation if able to tolerate. Based on age, advanced dementia and no known malignancy, does not recommend any additional imaging or work up at this time. Known h/o chronic ITP but no bleeding history, platelets >100. OK to follow up with heme/onc in clinic (previously followed with Dr. Parsons in 2016) patient has been started on Eliquis 2.5 mg twice daily. Pneumonia Afebrile, mild leukocytosis 11 and improving CXR with Right midlung opacity which has developed since prior exam. This favors a focus of pneumonia. Radiographic follow-up to ensure resolution is recommended. Hypoxia is resolved and she has been on room air throughout my care and without any respiratory issues. Status post empiric rocephin, doxy and changed to Vantin/Doxy to complete 1 week of antibiotic course, renally dosed. Blood culture remains negative CKD IV stable at baseline, creatinine improving to 1.55. CrCl <30. Recommended avoiding motrin or other NSAIDs. H/o chronic ITP Stable history, last seen by heme onc in 2016 No signs of bleeding. Thrombocytopenia resolved, Platelet count 135. Alzheimer's dementia Stable, at baseline (fluctuates with verbal ability), ambulates with wheelchair at baseline Continue quetiapine BID, risperidone TID Spoke with [place] from [facility] and provided an update. Recommended continuing PT OT at the facility. Total Time Total Time Spent Total Time Spent (In Minutes): 35 Discharge Plan Discharge Items Patient Disposition: Personal [facility] Reason For Visit: PNA, HYPOXIA Discharge Diagnosis: Left IJV thrombosis, Community acquired pneumonia Activity: Resume your previous activity Non-emergency contact: Primary Care Provider Call non-emergency contact if: you have any medication questions Follow-up/Referrals: Sima Kunz MD [Outside Practitioners] - (Date & Time 02/21/2024 10:20 AM Provider Sima Kunz MD Department General Internal Medicine [facility] ) Aisha Earl [Primary Care Provider] - Diet: Regular Addtl Attending Provider Instructions: Continue eliquis twice daily indefinitely if no bleeding issues. Continue the antibiotic as prescribed for 5 more days Recommended stopping ibuprofen given your kidney impairment. Can have tylenol. Follow up with the family doctor in a week Pending Studies at Discharge: No Stand-Alone Forms: My [employer], Smoking Cessation Skilled Items Patient informed of condition?: Yes DNR: No Discharge Level of Care: Skilled Communicable Disease: No Discharge Prognosis: Stable Lines: None Urinary Catheter: No Medications and DC Order Prescriptions: New doxycycline hyclate 100 mg Capsule 100 mg PO BID 5 Days Qty: 10 0RF Eliquis 2.5 mg Tablet 2.5 mg PO BID 30 Days Qty: 60 0RF cefpodoxime 200 mg tablet 200 mg PO DAILY Qty: 5 0RF Rx Instructions: must administer with a meal/food. starting tomorrow Continued quetiapine 25 mg tablet 25 mg PO BID latanoprost 0.005 % drops 1 drp OPB QPM risperidone 0.5 mg tablet 0.5 mg PO TID furosemide 40 mg tablet 40 mg PO [id number]@0900 Discontinued ibuprofen [IBU] 600 mg tablet 600 mg PO DAILY ibuprofen [IBU] 600 mg tablet 600 mg PO HS PRN (Reason: pain or swelling) Discharge Orders: Discharge Order (Routine); Ordered 02/14/24 Ordered By: Phillip Healy Admission Data Admit Date/Time: 02/11/24 13:27 Attending Provider: Phillip Healy Admit Provider: Alejandro Parker Primary Care Provider: Aisha Earl Other Providers: Alejandro Parker; [facility] Other Interventions: Discharge Summary Assessment (RN) Last Done: 02/14/24 13:42
== END 2024-02-14 15:05 | disposition home or self-care (01) | DRG 299 ==
LOC: ED 11:09 → SUATTDRO 13:27 → 3N 13:27

== ENCOUNTER 2024-03-30 09:41 | Inpatient (IN) ==
--- NOTE | 2024-03-30 10:13 | Emergency Department Note ---
Impression & Plan Hematoma of left forearm, Chronic ITP (idiopathic thrombocytopenia), Supratherapeutic INR ED Provider Note NAME: PEGGY PRITCHETT AGE: 84 SEX: F : 1940 ARRIVES VIA: Ambulance INFORMANT: Patient ED PROVIDER(S): Rajat Ace MD CHIEF COMPLAINT: Left forearm swelling. 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 They reported to EMS that she has had chronic swelling in the forearm otherwise. On evaluation the patient is no distress, afebrile stable vital signs. She is a poor historian. She denies any complaints. Left forearm demonstrates moderate edema, erythema and warmth with approximate 3 cm area of induration and fluctuance on the dorsal aspect of the mid forearm. There is no crepitus. Compartments are soft. Distal PMS is intact. WBC within normal limits. There is no neutrophilia or left shift. H/H 11.4/35.2, similar to/stable from prior. Platelets 80 5K, slightly decreased from prior in the setting of chronic ITP. Chemistry without metabolic acidosis. Creatinine 1.6, similar to prior range values in the setting of CKD. LFTs unremarkable. INR is supratherapeutic, greater than 9.5. Left upper extremity venous ultrasound demonstrates nonocclusive thrombus in the left anterior jugular vein consistent with chronic thrombus from patient's prior exam/internal jugular vein thrombosis previously on 02/11/2024. Nonvascular ultrasound of the forearm demonstrates complex fluid collection consistent with hematoma in the setting of the patient supratherapeutic INR. Plain films of the left forearm negative for fracture or dislocation. Given the complexity of the patient's supratherapeutic INR in the setting of ITP now with associated hematoma patient was referred to hospitalist service for admission and further management. Given presence of nonocclusive internal jugular vein thrombosis INR reversal performed cautiously with 5 mg of oral vitamin K. Gato wrap applied for compression for management of hematoma. Case d/w [facility]upillo Polanco PAC[facility] who will evaluate the patient for admission. Further management per admitting team. Triage Nursing notes reviewed and agree them. Prior/external medical records reviewed Vital Signs: reviewed Differential diagnosis: DVT, musculoskeletal, infection, joint effusion, trauma, lymphedema, idiopathic, CHF, as well as other pathologies. ER treatment provided: See below. Diagnostics interpreted by me: Cardiac Monitoring: An order for continuous cardiac monitoring was placed and demonstrated normal sinus rhythm, 81 bpm, no ectopy. 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 They reported to EMS that she has had chronic swelling in the forearm otherwise. ROS: See above HPI for pertinent positives & negatives. A total of 10 systems reviewed and were otherwise negative. VITALS:See Below PHYSICAL EXAMINATION: GENERAL: Awake, alert, in no distress HENT: Normocephalic, atraumatic. Oropharynx unremarkable. EYES: Normal conjunctiva. Sclera non-icteric. NECK: Supple. No nuchal rigidity. FROM. No JVD. RESPIRATORY: Clear to auscultation. CARDIAC: Regular rate, normal rhythm. Extremities warm and well perfused. Pulses equal. ABDOMEN: Soft, non-distended. No tenderness to palpation. No rebound or guarding. No masses. MUSCULOSKELETAL: Chest examination reveals no tenderness. The back is symmetrical on inspection without obvious abnormality. There is no CVA tenderness to palpation. Left forearm demonstrates moderate edema, erythema and warmth with approximate 3 cm area of induration and fluctuance on the dorsal aspect of the mid forearm. There is no crepitus. Compartments are soft. Distal PMS is intact. LOWER EXTREMITIES: Calves are equal size bilaterally and non-tender. No edema. No discoloration. NEURO: Pleasantly confused at baseline for dementia. No focal sensory or motor deficits noted. SKIN: No jaundice noted. Rajat Ace MD Past Med/Surg History Problem List Supratherapeutic INR (Acute) Hematoma of left forearm (Acute) Internal jugular vein thrombosis (Acute) Medical History Late onset Alzheimer's dementia without behavioral disturbance CKD (chronic kidney disease), stage IV Chronic ITP (idiopathic thrombocytopenia) Osteoarthritis Osteoporosis SNHL (sensorineural hearing loss) Surgical History Hx of esophagogastroduodenoscopy Status post total hip replacement, right S/P hip replacement Family History Aunt Diabetes Social History Smoking Status: Unknown if ever smoked Preferred Language: Togolese Communication Ability: Effective Temporary Staff Accountant Required: No Beliefs That Will Affect Care: None marital status: Current Living Situation: Group Home Feels Safe at Home: Declines to Answer Assistive Devices: Wheelchair Allergies Allergies Allergy/AdvReac Type Severity Reaction Status Date / Time No Known Allergies Allergy Unverified 11/16/23 15:49 Home Meds Home Medications Medication Instructions Recorded Confirmed latanoprost 0.005 % eye drops 1 drp OPB UD 11/16/23 03/30/24 quetiapine 25 mg tablet 25 mg PO BID 11/16/23 03/30/24 risperidone 0.5 mg tablet 0.5 mg PO TID 11/16/23 03/30/24 furosemide 40 mg tablet 40 mg PO MOTUWETHFR@0900 02/11/24 03/30/24 warfarin 5 mg tablet 5 mg PO DAILY 03/30/24 03/30/24 Results & Data (ED) Vital Signs Vital Signs - 24 hr 03/30/24 09:37 03/30/24 09:53 Temperature 36.8 C Temperature Source Oral Pulse Rate 86 81 Respiratory Rate 18 Blood Pressure 129/77 Blood Pressure Mean 94 Pulse Oximetry 95 Oxygen Delivery Method Room Air Sepsis Recent Fever Within 48 Hours No Sepsis New/Unexplained Change in Mental Status N/A Sepsis Action Taken by Nursing No Action Required Laboratory Data Attestation: I reviewed the patient's lab results. 03/30/24 20:06 03/30/24 10:20 Lab Results 03/30/24 03/30/24 Range/Units 10:20 12:06 WBC 8.99 (4.8-10.8) K/ul RBC 4.20 (4.20-5.40) M/uL Hgb 11.4 L (12.0-16.0) g/dl Hct 35.2 L (37.0-47.0) % MCV 83.8 (80.0-100.0) fL MCH 27.1 (25.0-34.0) pg MCHC 32.4 (32.0-36.0) g/dL RDW Std Deviation 43.4 (36.4-46.3) fL RDW Coeff of Yajaira 14.2 (11.5-14.5) % Plt Count 85 L (130-400) K/uL MPV 12.0 (9.4-12.4) fL Immature Gran % (Auto) 1.1 % Neut % (Auto) 62.4 % Lymph % (Auto) 20.9 % [place] % (Auto) 8.9 % Eos % (Auto) 5.6 % Baso % (Auto) 1.1 % Neut # (Auto) 5.61 (1.40-6.50) K/uL Lymph # (Auto) 1.88 (1.20-3.40) K/uL [place] # (Auto) 0.80 H (0.11-0.59) K/uL Eos # (Auto) 0.50 (0.00-0.50) K/uL Baso # (Auto) 0.10 (0.00-0.20) K/uL Immature Gran # (Auto) 0.10 (0.01-0.20) K/uL PT Cancelled > 90.0 H INR Cancelled > 9.5 H* Sodium 140 (136-145) mmol/L Potassium 4.1 (3.5-5.1) mmol/L Chloride 107 (98-107) mmol/L Carbon Dioxide 26 (21-32) mmol/L Anion Gap 7 (3-11) BUN 31 H (6-23) mg/dl Creatinine 1.62 H (0.6-1.2) mg/dl Est Cr Clr Drug Dosing 23.3 ml/min Est GFR ( Amer) 33.4 ml/min Est GFR (Non-Af Amer) 28.8 ml/min BUN/Creatinine Ratio 19.1 (10-20) Glucose 89 (70-99(Fasting)) mg/dl Calcium 8.7 (8.6-10.3) mg/dl Total Bilirubin 0.7 (0.2-1.0) mg/dl AST 16 (13-39) U/L ALT 10 (7-52) U/L Alkaline Phosphatase 53 (34-104) U/L Total Protein 5.5 L (6.0-8.3) gm/dl Albumin 3.4 (3.4-5.0) gm/dl Globulin 2.1 L (2.5-4.0) gm/dl Albumin/Globulin Ratio 1.6 (0.9-2) Administered Medications Latanoprost (Latanoprost 0.005% Op Soln 2.5 Ml Btl) 1 drops OPB HS SIOBHAN Stop: 04/29/24 20:59 Last Admin: 03/30/24 20:12 Dose: 1 drops Documented By: PAT Quetiapine Fumarate (Quetiapine Fumarate 25 Mg Tablet) 25 mg PO BID SIOBHAN Stop: 04/29/24 20:59 Last Admin: 03/30/24 20:13 Dose: 25 mg Documented By: PAT Risperidone (Risperidone 0.5 Mg Tablet) 0.5 mg PO TID SIOBHAN Stop: 04/29/24 20:59 Last Admin: 03/30/24 20:13 Dose: 0.5 mg Documented By: PAT Discontinued Medications Phytonadione (Phytonadione 5 Mg Tab) 5 mg PO NOW STA Stop: 03/30/24 13:25 Last Admin: 03/30/24 14:44 Dose: 5 mg Documented By: [facility] [place] Data Radiologist's Impression: Extremity Venous Study 03/30/24 10:08 US venous doppler UE LT CLINICAL HISTORY: swelling PROCEDURE: Left upper extremity real-time compression venous ultrasound with Duplex and color Doppler imaging. Comparison: Comparison is made to Doppler ultrasound 02/11/2024 FINDINGS/IMPRESSION: Nonocclusive thrombus is in the left anterior jugular vein, likely a chronic thrombus from the prior exam. No evidence of superficial thrombosis is identified. ACT 112: Negative or not required by law. Electronically signed by: Abel Kovacs M.D. 03/30/2024 12:16 PM Forearm X-Ray 03/30/24 10:08 LEFT FOREARM 2 VIEWS CLINICAL HISTORY: Left arm swelling. Bruising. FINDINGS: AP and lateral views of the left forearm are obtained. No prior studies are available for comparison at the time of dictation. The skeletal structures are osteopenic. There is no radiographic evidence of left forearm fracture. The elbow and wrist joints are grossly maintained. Arthritic change is seen in the wrist. Soft tissue edema is present throughout the left arm. IMPRESSION: Soft tissue swelling with no acute bony abnormality identified. Electronically signed by: Ryder Kruse M.D. 03/30/2024 10:41 AM Vascular Ultrasound 03/30/24 11:26 US extremity non-vascular ltd CLINICAL HISTORY: left forwarm swelling TECHNIQUE: Real-time grayscale sonographic images of the left forearm were obtained. Comparison: Comparison is made to left forearm radiograph 03/30/2024 FINDINGS/IMPRESSION: Complex fluid collection measures 8.5 x 1.7 x 5.7 cm with surrounding edema. Findings are nonspecific but may represent hematoma. ACT 112: Negative or not required by law. Electronically signed by: Abel Kovacs M.D. 03/30/2024 12:17 PM Discharge Plan Visit Data Chief Complaint: Arm Pain Stated Complaint: Left arm swelling ED Provider: Rajat Ace Discharge Problem: Hematoma of left forearm, Chronic ITP (idiopathic thrombocytopenia), Supratherapeutic INR Patient Disposition: Admitted As Inpatient Discharge Instructions Interventions: ED Discharge Assessment Last Done: 03/30/24 16:12
[2024-03-30 10:38] LABS: Basophils % (auto) 1.1 %; Eosinophils % (auto) 5.6 %; Hematocrit (blood only) 35.2 % (37.0-47.0); Hemoglobin 11.4 g/dl (12.0-16.0); Immature Granulocytes % (auto) 1.1 %; Lymphocytes # (auto) 1.88 K/uL (1.20-3.40); Lymphocytes % (auto) 20.9 %; Mean Corpuscular Hemoglobin 27.1 pg (25.0-34.0); Mean Corpuscular Hgb Conc 32.4 g/dL (32.0-36.0); Mean Corpuscular Volume 83.8 fL (80.0-100.0); Monocytes % (auto) 8.9 %; Neutrophils # (auto) 5.61 K/uL (1.40-6.50); Neutrophils % (auto) 62.4 %; Platelet Count 85 K/uL (130-400); RDW Coefficient of Variation 14.2 % (11.5-14.5); RDW Standard Deviation 43.4 fL (36.4-46.3); White Blood Count 8.99 K/ul (4.8-10.8)
--- NOTE | 2024-03-30 10:43 | XRay Report ---
LEFT FOREARM 2 VIEWS CLINICAL HISTORY: Left arm swelling. Bruising. FINDINGS: AP and lateral views of the left forearm are obtained. No prior studies are available for c omparison at the time of dictation. The skeletal structures are osteopenic. There is no radiographic evidence of left forearm fracture. The elbow and wrist joints are grossly maintained. Arthritic villa e is seen in the wrist. Soft tissue edema is present throughout the left arm. IMPRESSION: Soft tissue swelling with no acute bony abnormality identified. Electronically signed by: Ryder Kruse M.D. 03/30/2024 10:41 AM
[2024-03-30 10:53] LABS: Albumin Globulin Ratio 1.6 (0.9-2); Albumin Level 3.4 gm/dl (3.4-5.0); BUN Creatinine Ratio 19.1 (10-20); Bilirubin,Total 0.7 mg/dl (0.2-1.0); Calcium 8.7 mg/dl (8.6-10.3); Creatinine Clr Calc Pharmacy 23.3 ml/min; Est GFR (African American) 33.4 ml/min; Est GFR (Non-African American) 28.8 ml/min; Globulin 2.1 gm/dl (2.5-4.0); Potassium 4.1 mmol/L (3.5-5.1); Total Protein 5.5 gm/dl (6.0-8.3)
--- NOTE | 2024-03-30 12:17 | Ultrasound Report ---
US venous doppler UE LT CLINICAL HISTORY: swelling PROCEDURE: Left upper extremity real-time compression venous ultrasound with Duplex and color Doppler imaging. Comparison: Comparison is made to Doppler ultrasound 02/11/2024 FINDINGS/IMPRESSION: Nonocclusive thrombus is in the left anterior jugular vein, likely a chronic thrombus from the prior exam. No evidence of superficial thrombosis is identified. ACT 112: Negative or not required by law. Electronically signed by: Abel Kovacs M.D. 03/30/2024 12:16 PM
--- NOTE | 2024-03-30 12:18 | Ultrasound Report ---
US extremity non-vascular ltd CLINICAL HISTORY: left forwarm swelling TECHNIQUE: Real-time grayscale sonographic images of the left forearm were obtained. Comparison: Comparison is made to left forearm radiograph 03/30/2024 FINDINGS/IMPRESSION: Complex fluid collection measures 8.5 x 1.7 x 5.7 cm with surrounding edema. Fin dings are nonspecific but may represent hematoma. ACT 112: Negative or not required by law. Electronically signed by: Abel Kovacs M.D. 03/30/2024 12:17 PM
[2024-03-30 12:57] LABS: Prothrombin Time > 90.0 Seconds (9.0-12.0)
[2024-03-30 13:07] LABS: INR > 9.5 (0.9-1.1)
--- NOTE | 2024-03-30 13:58 | History & Physical Report ---
Date of Service March 30, 2024 Assessment & Plan (1) Supratherapeutic INR: (2) Hematoma of left forearm: (3) Internal jugular vein thrombosis: (4) CKD (chronic kidney disease), stage IV: (5) Late onset Alzheimer's dementia without behavioral disturbance: Plan: Left forearm hematoma Supratherapeutic INR ITP -Admit to [facility] -Vitamin K 5 mg p.o. administered in the ER for reversal of supratherapeutic NR measuring >9.5 on admission, only other previous check is read as 2.1 on 03/15 where it was therapeutic at that time. -Switched from Eliquis 2.5 mg twice daily due to cost prohibitive for the patient around 03/10 when prescription for Coumadin was sent by [facility] - Recheck INR, H&H and type and cross this evening at 8pm, hold 2 U PRBCs for possible transfusion, hgb is currently stable at 11.4, at this time no need for transfusion. Plt count 85, follow am labs -Continue ice alternating with heat and compression -At this time no signs of compartment syndrome, may consider general surgery consult if does not seem to improve over the next 24 hours -Imaging reviewed personally, interpreted as a fluid collection, per radiology measuring 8.5 x 1.7 x 5.7 cm, most likely representing hematoma History of left anterior jugular nonocclusive thrombus -Previously followed with hematology, Dr. Parada -Chronic, stable Late onset Alzheimer's dementia -Reorientation as needed - Continue home meds of seroquel, risperdone - Encourage oral intake, assist with feedings as needed - PT/OT consults DVT ppx: teds, scds Lines: PIV x1 FEN/GI: Regular diet CODE: Full code Dispo: From home, likely to remain in the hospital x 1-2 days A total of 75 minutes were spent with greater than 50% of that time face to face with the patient, personally reviewing all current laboratories, imaging studies, past medication reconciliation, outpatient chart review, and discussion with specialists to collaborate care for the patient with attending. Please see attending documentation for corrections and/or additions. (6) Chronic ITP (idiopathic thrombocytopenia): History of Present Illness Chief Complaint: Left forearm swelling Primary Care Provider: Aisha Wang This is an 84-year-old female with PMHx of idiopathic thrombocytopenia, dementia, left anterior jugular thrombus previously placed on Eliquis during admission at the end of January by life specialist, Dr. Parada. Since then it appears that she had been switched from Eliquis to Coumadin due to cost prohibitive therapy, around March 10. Her INR was checked on 03/14 and was 2.1 at that time, but further checks are not available in the system for review. She presents today with worsening left forearm swelling which occurred at [facility]. Patient herself is unable to provide any pertinent HPI due to dementia. The patient is found to have a left forearm hematoma which is measuring 8.5 x 1.7 x 5.7 cm and INR is reading is >9.5. Patient platelet count is 85, afebrile, white count 9K. Patient was administered p.o. vitamin K 5 mg in the ER. We have been asked to admit the patient for further monitoring. At this time does not appear to have any signs of compartment syndrome, skin is warm/fluctuant over the area of fluid. Allergies Allergy/AdvReac Type Severity Reaction Status Date / Time No Known Allergies Allergy Unverified 11/16/23 15:49 Home Medications Medication Instructions Recorded Confirmed Type latanoprost 0.005 % eye drops 1 drp OPB UD 11/16/23 03/30/24 History quetiapine 25 mg tablet 25 mg PO BID 11/16/23 03/30/24 History risperidone 0.5 mg tablet 0.5 mg PO TID 11/16/23 03/30/24 History furosemide 40 mg tablet 40 mg PO MOTUWETHFR@0900 02/11/24 03/30/24 History warfarin 5 mg tablet 5 mg PO DAILY 03/30/24 03/30/24 History Past Med/Surg History Problem List Supratherapeutic INR (Acute) Hematoma of left forearm (Acute) Internal jugular vein thrombosis (Acute) Medical History Late onset Alzheimer's dementia without behavioral disturbance CKD (chronic kidney disease), stage IV Chronic ITP (idiopathic thrombocytopenia) Osteoarthritis Osteoporosis SNHL (sensorineural hearing loss) Surgical History Hx of esophagogastroduodenoscopy Status post total hip replacement, right S/P hip replacement Family History Aunt Diabetes Social History Smoking Status: Unknown if ever smoked Preferred Language: Ecuadorean Communication Ability: Effective Metal Gauge Maker Required: No Beliefs That Will Affect Care: None marital status: Current Living Situation: [facility] Feels Safe at Home: Declines to Answer Assistive Devices: Wheelchair Review of Systems Review of Systems: Unobtainable due to cognitive status Physical Exam Physical Exam: General: awake, alert, no apparent distress, looks at me with verbal cues, does not follow commands nor does she respond to questions appropriately, quiet, white female Head: Normocephalic, atraumatic ENT: PERRL, EOMI, no pharyngeal exudate, mucous membranes moist Chest: Clear to auscultation, on room air, no adventitious breath sounds Cardiac: Regular rate and rhythm, no murmur, no JVD, normal peripheral pulses, good capillary refill Abdominal: NABS x 4 quadrants, soft, nondistended, nontender to palpation, no rebound or guarding Extremities: 1+ edema BLE, Left upper extremity wrapped in PHIL, erythema is dull, slightly warm, nontender to palpation, no other erythema, calfs nontender to palpation Psych: pleasantly confused Neuro: Pleasantly confused, strength intact bilaterally and rated 5/5, moves all extremities, no motor deficits, speech is clear, no peripheral sensory deficits Results & Data Results & Data Vital Signs (Past 12 Hours) Vital Signs Temp Pulse Resp BP Pulse Ox O2 Del Method 03/30/24 09:53 81 03/30/24 09:37 36.8 C 86 18 129/77 95 Room Air Laboratory Results 03/30/24 03/30/24 12:06 10:20 WBC 8.99 RBC 4.20 Hgb 11.4 L Hct 35.2 L MCV 83.8 MCH 27.1 MCHC 32.4 RDW Std Deviation 43.4 RDW Coeff of Yajaira 14.2 Plt Count 85 L MPV 12.0 Immature Gran % (Auto) 1.1 Neut % (Auto) 62.4 Lymph % (Auto) 20.9 [place] % (Auto) 8.9 Eos % (Auto) 5.6 Baso % (Auto) 1.1 Neut # (Auto) 5.61 Lymph # (Auto) 1.88 [place] # (Auto) 0.80 H Eos # (Auto) 0.50 Baso # (Auto) 0.10 Immature Gran # (Auto) 0.10 PT > 90.0 H Cancelled INR > 9.5 H* Cancelled Sodium 140 Potassium 4.1 Chloride 107 Carbon Dioxide 26 Anion Gap 7 BUN 31 H Creatinine 1.62 H Est Cr Clr Drug Dosing 23.3 Est GFR ( Amer) 33.4 Est GFR (Non-Af Amer) 28.8 BUN/Creatinine Ratio 19.1 Glucose 89 Calcium 8.7 Total Bilirubin 0.7 AST 16 ALT 10 Alkaline Phosphatase 53 Total Protein 5.5 L Albumin 3.4 Globulin 2.1 L Albumin/Globulin Ratio 1.6 Diagnostic Findings Extremity Venous Study 03/30/24 10:08 US venous doppler UE LT CLINICAL HISTORY: swelling PROCEDURE: Left upper extremity real-time compression venous ultrasound with Duplex and color Doppler imaging. Comparison: Comparison is made to Doppler ultrasound 02/11/2024 FINDINGS/IMPRESSION: Nonocclusive thrombus is in the left anterior jugular vein, likely a chronic thrombus from the prior exam. No evidence of superficial thrombosis is identified. ACT 112: Negative or not required by law. Electronically signed by: Abel Kovacs M.D. 03/30/2024 12:16 PM Forearm X-Ray 03/30/24 10:08 LEFT FOREARM 2 VIEWS CLINICAL HISTORY: Left arm swelling. Bruising. FINDINGS: AP and lateral views of the left forearm are obtained. No prior studies are available for comparison at the time of dictation. The skeletal structures are osteopenic. There is no radiographic evidence of left forearm fracture. The elbow and wrist joints are grossly maintained. Arthritic change is seen in the wrist. Soft tissue edema is present throughout the left arm. IMPRESSION: Soft tissue swelling with no acute bony abnormality identified. Electronically signed by: Ryder Kruse M.D. 03/30/2024 10:41 AM Vascular Ultrasound 03/30/24 11:26 US extremity non-vascular ltd CLINICAL HISTORY: left forwarm swelling TECHNIQUE: Real-time grayscale sonographic images of the left forearm were obtained. Comparison: Comparison is made to left forearm radiograph 03/30/2024 FINDINGS/IMPRESSION: Complex fluid collection measures 8.5 x 1.7 x 5.7 cm with surrounding edema. Findings are nonspecific but may represent hematoma. ACT 112: Negative or not required by law. Electronically signed by: Abel Kovacs M.D. 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 Patient unable to provide any history due to dementia. She is pleasantly confused while in ED. Most of the history is obtained from patient records, ER physician. She denies any left upper extremity pain currently. No known history of trauma. I personally reviewed blood work and imaging studies. Hemoglobin 11.4, platelet count 85 K, INR greater than 9.5, electrolytes within normal limits. Creatinine 1.6 at baseline. Left upper extremity ultrasound showed complex fluid collection with surrounding edema suggestive of hematoma. On exam patient is moderately built and nourished. No apparent distress. Pleasantly confused. Normocephalic atraumatic, EOMI, normal breath sounds, clear to auscultation, S1-S2, no murmur, 1+ pedal edema, abdomen soft, nontender, normal bowel sounds, alert, awake, does not follow commands,+ decreased hearing, grossly moves all extremities,+ dementia. Left upper extremity swelling, mild erythema in dressing. Patient is admitted for management of left upper extremity hematoma in setting of supratherapeutic INR secondary to Coumadin, ITP. Will give vitamin K. Type and cross, monitor H&H. Blood pressure elevated in ED likely situational. Monitor blood pressure and adjust medications as needed. Monitor renal function, INR. Risk versus benefits may need to be reassessed for long-term anticoagulation given advanced age, dementia. Fall precautions, PT OT prior to discharge. I personally interviewed and examined at bedside. Patient's care is coordinated with Corine Garcia PA-C. I have reviewed the advanced practitioner's doc umentation, and I agree with plan of care. Please refer to the documentation above for details of patient's presentation and for discussion of other issues. I spent a total [id number] coordinating, documenting, and providing care for this patient excluding time spent in the performance of separately billed services.
[2024-03-30] MEDS ORDERED: SODIUM CHLORIDE 0.9% 250 ML IV PRN (14:08)
[2024-03-30] MEDS: PHYTONADIONE 5 MG TAB PO STA (14:44)
[2024-03-30] MEDS ORDERED: ONDANSETRON INJ 2 MG/ML 2 ML VIAL IV PRN (16:45)
--- OUTSIDE RECORDS SUMMARY | 2024-03-30 17:15 | External Medical Summary | Summary of Care ---
Author Name Unknown Organization [facility] Address [address] [place] [address] Phone [phone] Care Team Providers Care Color Control Operator Name Role Phone Sima Kunz MD Primary Care Provider [phone] Reason for Visit * Reason Onset Date Comments Health Maintenance 03/14/2024 Encounter Details Date Type Department Care Team (Late st Contact Info) Description 03/14/2024 Telephone General Internal Medicine [facility] [address] [place] [address] Sima Kunz MD [address] [place] [address] Health Maintenance Allergies No known active allergiesdocumented as of this encounter (statuses as of 03/14/2024) Medications Medication Sig Dispensed Refills Start Date End Date Status COQ10 100 MG PO CAPS 1 CAPSULE DAILY 05/23/2012 Active Multiple Vitamins-Minerals (WOMENS MULTIVITAMIN) TABS 2 times a day. One tab daily 02/16/2018 Active Folic Acid 0.8 MG CAPS Take by mouth. 1 daily Active Vitamin E 400 units Tablet Take 1 Tablet by mouth in the morning. Active Magnesium 500 MG Capsule Take 0.5 Capsules by mouth in the morning. 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 1 Capsule 02/23/2022 Active documented as of this encounter (statuses as of 03/14/2024) Active Problems Problem Noted Date Diagnosed Date History of fracture of right hip 02/23/2022 Status post right hip replacement 02/23/2022 Underweight 02/23/2022 Thyroid nodule 01/15/2019 Overview: 01/29=US=8 x 5 x 7 mm Rt nodule--unchg from 05/31 History of rib fracture 03/07/2018 Advanced directives, counseling/discussion 06/22 Late onset Alzheimer's disea se without behavioral disturbance 06/22/2017 Overview: 05/10/2019-d/w --pt on aricept and namenda x2 yrs -Rx neuro in [place]- Tereso Platt 06/29-MRI chr micro isch chg-was ref neuropsych--pt cx appt 01/21/18-pieter History of Papanicolaou smear of cervix 05/23/20 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 hyperemia on iopidine; rxn alphagan; s/p phaco/pciol OS 8-02; 567 OD 599 OS c/d .7 OD; .6 OS; IOP 28 OD 30 OS Allergic Rxn: alphagan History of retinal detachment 05/24/2002 GENERAL OSTEOARTHROSIS 08/02/2001 documented as of this encounter (statuses as of 03/14/2024) Resolved Problems Problem Noted Date Diagnosed Date Resolved Date Malignant neoplasm of skin of parts of face 02/03/2011 06/22/2017 Overview: ICD-10 update of inactive term Lyme disease 03/14/2010 06/22/2017 Vertebral fracture, osteoporotic 08/20/2008 08/26/2009 Overview: Per Osteoporotic Vertebral Fracture Protocol # 9 Other primary thrombocytopenia 07/24/2008 06/22/2017 Internal derangement of knee 03/12/2008 06/22/2017 ADVANCE DIRECTIVE INFORMATION 07/24/2005 06/22/2017 Overview: Yes, Patient instructed to provide copy of advance directive for provider to review and to be scanned into Electronic Medical Record Onychia of finger 03/21/2004 06/22/2017 Actinic keratosis 08/04/2002 06/22/2017 Dermatitis 08/04/2002 06/22/2017 Secondary thrombocytopenia 08/02/2001 1 09/23/2007 Overview: ICD-10 update of inactive term Impacted cerumen 08/02/2001 02/25/2009 PRIM OPEN ANGLE GLAUCOMA 08/02/200106/2017 Hypothyroidism 06/22/2017 documented as of this encounter (statuses as of 03/14/2024) Immunizations Name Administration Dates Next Due COVID-19 mRNA, LNP-s, No Pre serve, 2-Dose Series (Moderna) 12/26/2020,11/29/2020 Covid-19, Mrna, Lnp-s, Pf, B ivalent, 30 Mcg, IM, 12 yrs and above (Pfizer) 06/22/2022 Pneumococcal Conjugate Vacc, 13 Valent (Prevnar) 03/22/2017 Season Influenza, Quad, PF, Adjuvanted, 65+ Yrs, IM (FLUAD) 06/19/2020 Seasonal Influenza, PF, 6 M & above, IM , (FluLaval or Fluzone) 06/23/2018,06/22/2017 Seasonal Influenza, Quadriva lent Hd (Fluzone Hd) 08/04/2021 Seasonal Influenza, Quadriva lent Hd, 65+ Yrs 06/22/2022 Seasonal Influenza, Split, I IV3, With Preserve, Inj 07/03/2008,07/27/2007,07/22/2006 Seasonal Influenza, Trivalen t, Adjuvanted, 65+ yrs 07/31/2019 TDAP (age 10 and older)(Boostrix) 02/26/2018, Zoster Vaccine Recombinant (Shingrix) 01/29/2020 ,07/26/2019 documented as of this encounter Social History Tobacco Use Types Packs/Day Years Used Date Smoking Tobacco: Never Smokeless Tobacco: Never Alcohol Use Standard Drinks/Week Comments Not Currently 0 (1 standard drink = 0.6 oz pur e alcohol) None currently PHQ-2 Answer Date Recorded PHQ Adult Total Score 3 06/29/2022 Hunger Vital Sign Answer Date Recorded Within the past 12 months, y ou worried that your food would run out before you got the money to buy more. Never true 06/29/20 22 Within the past 12 months, t he food you bought just didn't last and you didn't have money to get more. Never true 06/29/2022 Utilities Answer Date Recorded Do you have trouble paying y our heating, water, or electric bill? (Adult - for ages 18 years and over) Not on file 02/29/2024 Is your family able to pay t he heat, water, or electric bill? (Household - for ages 0-17 years) Not on file 02/29/2024 Does your family have access to good internet? (Household - for ages 0-17 years) Not on file 02/29/2024 Social Connections Answer Date Recorded How often do you feel lonely or isolated from those around you? (Adult - for ages 18 years and over) Not on file 02/29/2024 Sex and Gender Information Value Date Recorded Sex Assigned at Female 2019 8:13 AM EDT Gender Identity Female 2019 8:13 AM EDT Sexual Orientation Straight 2019 8: 13 AM EDT Job Start Date Occupation Industry Not on file Not on file Not on file documented as of this encounter Miscellaneous Notes * Telephone Encounter - Tania Yates LPN - 03/14/2024 11:22 AM EDT Care Gaps Comprehensive Care Outreach Last Office/Telemedicine Visit: 02/24/2023 (in office), 01/29/2020 (telemedicine) Next Office Visit: Visit date not found Hemoglobin AIC Results: No results found for: "HEMOGLOBIN A1C" BP Readings from Last 1 Encounters: 02/24/23 112/72 Reviewed Health Maintenance below: Health Maintenance Topic Date Due Albumin/Creatinine Ratio 01/24/2021 COVID-19 Vaccine ( season) 2023 Depression Screening 06/29/2023 GFR 08/19/2023 Phosphate 02/18/2024 Nephrology Referral 02/18/2024 Hgb 02/18/2024 PTH 02/18/2024 In shelter Care Gap Outreach Action Taken: Outreach not indicated documented in this encounter Plan of Treatment Health Maintenance Due Date Last Done Comments Albumin/Creatinine Ratio 01/24/2021 01/25/2020 COVID-19 Vaccine () 05/14/2023 06/22/2022, 12/26/2020, 11/29/2020 Depression Screening 06/29/2023 06/29/2022 GFR 08/19/2023 02/17/2023, 01/11, 07/25/2021, Additional history exists Hgb 02/18/2024 02/17/2023, 01/11, 07/25/2021, Additional history exists Nephrology Referral 02/18/2024 02/17/2023, 07/08/2010, 07/05/2009 PTH 02/18/2024 02/17/2023, 01/11, 07/25/2021, Additional history exists Phosphate 02/18/2024 02/17/2023, 01/11, 07/25/2021, Additional history exists *BISPHONATE OR OTHER ACCEPTABLE MEDICATION NEEDED FOR OSTEOPOROSIS (REFER TO SMARTSET #1146) 02/21/2024 Influenza Vaccine (FLU shot) (#1) 2024 06/22/2022, 10/31/2021, 08/04/2021, Additional history exists DTaP,Tdap,and Td Vaccines (3 - Td or Tdap) 02/27/2028 02/26/2018, 04/02/2016, 09/13/1999 Pneumococcal Vaccine: 65+ Years Completed 03/22/2017, 07/24/2005 Zoster Vaccines Completed 01/29/2020, 07/26/2019 GARDASIL-HPV IMMUNIZATION SERIES Aged Out No longer eligible based on patient's age to complete this topic Hepatitis B Aged Out No longer eligi ble based on patient's age to complete this topic MENINGOCOCCAL (MENACTRA/MENVEO) Aged Out No longer eligible based on patient's age to complete this topic documented as of this encounter Medical Devices Not on filedocumented as of this encounter Care Teams Color Control Operator Relationship Specialty Start Date End Date Sima Kunz MD [address] [place] [address] PCP - General Internal Medicine 03/22/17 documented as of this encounter
[2024-03-30] MEDS: LATANOPROST 0.005% OP SOLN 2.5 ML BTL OPB SCH (20:12)
[2024-03-30] MEDS: risperiDONE 0.5 MG TABLET PO SCH (20:13)
[2024-03-30] MEDS: QUEtiapine FUMARATE 25 MG TABLET PO SCH (20:13)
[2024-03-30 20:43] LABS: Hematocrit (blood only) 34.7 % (37.0-47.0); Hemoglobin 11.2 g/dl (12.0-16.0)
[2024-03-30 21:17] LABS: Prothrombin Time > 90.0 Seconds (9.0-12.0)
[2024-03-30 21:21] LABS: INR > 9.5 (0.9-1.1)
[2024-03-30] MEDS: PHYTONADIONE 5 MG in DEXTROSE 5% 50 ML IV ONE (22:23)
[2024-03-31] MEDS: FUROSEMIDE 40 MG TAB PO SCH (15:02)
[2024-03-31 16:45] LABS: INR 1.3 (0.9-1.1)
[2024-03-31 17:56] LABS: Hematocrit (blood only) 34.8 % (37.0-47.0); Mean Corpuscular Hemoglobin 26.8 pg (25.0-34.0); Mean Corpuscular Hgb Conc 31.6 g/dL (32.0-36.0); Mean Corpuscular Volume 84.9 fL (80.0-100.0); Mean Platelet Volume 12.1 fL (9.4-12.4); Platelet Count 109 K/uL (130-400); RDW Coefficient of Variation 14.1 % (11.5-14.5); RDW Standard Deviation 43.6 fL (36.4-46.3); White Blood Count 12.18 K/ul (4.8-10.8)
[2024-04-01 08:05] LABS: INR 1.1 (0.9-1.1); Prothrombin Time 11.8 Seconds (9.0-12.0)
[2024-04-01 08:45] LABS: Hematocrit (blood only) 32.7 % (37.0-47.0); Hemoglobin 10.5 g/dl (12.0-16.0); Mean Corpuscular Hemoglobin 26.9 pg (25.0-34.0); Mean Corpuscular Hgb Conc 32.1 g/dL (32.0-36.0); Mean Corpuscular Volume 83.8 fL (80.0-100.0); Mean Platelet Volume 12.6 fL (9.4-12.4); Platelet Count 129 K/uL (130-400); RDW Coefficient of Variation 14.1 % (11.5-14.5); RDW Standard Deviation 42.5 fL (36.4-46.3); White Blood Count 10.42 K/ul (4.8-10.8)
[2024-04-01 11:45] LABS: Calcium 8.5 mg/dl (8.6-10.3); Magnesium 2.1 mg/dl (1.7-2.4); Potassium 4.2 mmol/L (3.5-5.1)
[2024-04-01 11:54] LABS: BUN Creatinine Ratio 17.9 (10-20); Est GFR (African American) 36.4 ml/min; Est GFR (Non-African American) 31.4 ml/min; Phosphorus 3.7 mg/dl (2.5-4.9)
--- NOTE | 2024-04-01 15:56 | Hospitalist Progress Note ---
Date of Service April 01, 2024 Assessment & Plan (1) Supratherapeutic INR: (2) Hematoma of left forearm: (3) Internal jugular vein thrombosis: (4) CKD (chronic kidney disease), stage IV: (5) Late onset Alzheimer's dementia without behavioral disturbance: Plan: Left forearm hematoma in setting of supratherapeutic INR on coumadin Chronic left anterior jugular vein thrombus - INR >9.5 on admission which was reversed with oral vit K 5 mg and INR now at 1.1. H and H remains stable. Clinically stable with no evidence of compartment syndrome - US left forearm shows complex fluid collection measures 8.5 x 1.7 x 5.7 cm with surrounding edema. Findings are nonspecific but may represent hematoma. - US LUE shows nonocclusive thrombus is in the left anterior jugular vein, likely a chronic thrombus from the prior exam. No evidence of superficial t hrombosis is identified - Continue to hold coumadin as currently no strong indication- chronic thrombus- and moreover could be detrimental with the hematoma. Follow H and H. Late onset Alzheimer's dementia- stable, frequent reorientation as needed. Continue home meds of seroquel, risperdone - Encourage oral intake, assist with feedings as needed CKD 3b- Cr stable at baseline of around 1.5 Thrombocytopenia- mild and improving. DVT ppx: SCDs. Will start on sc heparin. Dispo: Per [facility] can not take her back until Wednesday. Time spent: Approx 35 mins (6) Chronic ITP (idiopathic thrombocytopenia): Admission and Anticipated Discharge Date Admission Date: March 30, 2024 Subjective Patient was seen and examined at bedside. She is know to me from prior admission. She is minimally verbal. Awake, alert. Denies any pain. No fever or chills. Review of Systems Review of Systems: Unobtainable due to cognitive status Physical Exam Physical Exam: General: Sitting comfortably in bed, not in distress, on room air HEENT: NEEMA, MMM Chest: Fair breath sounds bilaterally, no wheezes or crackles CVS: Regular rate and rhythm, normal heart sounds, no murmur Abdomen: Soft, non tender, not distended, normal bowel sounds Neuro: Awake, alert, minimally verbal due to dementia MSK/Skin: LUE ecchymoses and edema noted. No S/S of compartment syndrome. Distal NV status intact. Results & Data Results & Data Vital Signs (Past 12 Hours) Vital Signs Temp Pulse Resp BP Pulse Ox O2 Del Method 04/01/24 14:32 36.8 C 69 18 121/68 97 Room Air 04/01/24 09:55 80 20 107/60 93 Room Air 04/01/24 07:30 Room Air 04/01/24 07:21 37.4 C 89 19 113/62 94 Room Air Laboratory Results Short CBC 03/31/24 04/01/24 Range/Units 10:07 06:58 WBC 12.18 H 10.42 (4.8-10.8) K/ul Hgb 11.0 L 10.5 L (12.0-16.0) g/dl Hct 34.8 L 32.7 L (37.0-47.0) % Plt Count 109 L 129 L (130-400) K/uL BMP 04/01/24 06:58 Sodium 139 Potassium 4.2 Chloride 105 Carbon Dioxide 24 BUN 27 H Creatinine 1.51 H Glucose 110 H Calcium 8.5 L
[2024-04-01] MEDS: HEPARIN SOD 5,000 UNIT/0.5 ML VIAL SQ SCH (20:29)
[2024-04-02 06:32] LABS: Hemoglobin 9.8 g/dl (12.0-16.0)
[2024-04-02 07:20] LABS: INR 1.2 (0.9-1.1)
[2024-04-02 13:00] LABS: Appearance Urine Cloudy (Clear); Bacteria Urine Automated 4+ (None Seen); Bilirubin Urine Negative (Negative); Blood Urine Negative (Negative); Color Urine Yellow; Epithelial Cell Urine Auto 0-2 /hpf (0-2); Glucose Urine UA Negative (Negative); Ketones Urine Negative (Negative); Leukocyte Esterase Urine 3+ (Negative); Nitrite Urine Positive (Negative); Protein Urine Trace (Negative); RBC Urine Automated 0-2 /hpf (0-2); Specific Gravity Urine 1.017 (1.000-1.030); Urobilinogen Urine Negative (Negative); WBC Urine Automated >50 /hpf (0-5)
--- NOTE | 2024-04-02 13:23 | Hospitalist Progress Note ---
Date of Service April 02, 2024 Assessment & Plan (1) UTI (urinary tract infection): (2) Supratherapeutic INR: (3) Hematoma of left forearm: (4) Internal jugular vein thrombosis: (5) CKD (chronic kidney disease), stage IV: (6) Late onset Alzheimer's dementia without behavioral disturbance: Plan Left forearm hematoma in setting of supratherapeutic INR on coumadin Chronic left anterior jugular vein thrombus - INR >9.5 on admission which was reversed with oral vit K 5 mg and INR now at 1.1. H and H remains stable. Clinically stable with no evidence of compartment syndrome - US left forearm shows complex fluid collection measures 8.5 x 1.7 x 5.7 cm with surrounding edema. Findings are nonspecific but may represent hematoma. - US LUE shows nonocclusive thrombus is in the left anterior jugular vein, likely a chronic thrombus from the prior exam. No evidence of superficial thrombosis is identified - Continue to hold coumadin as currently no strong indication- chronic thrombus- and moreover could be detrimental with the hematoma. Sc heparin was started last night and noted Hb drop for which we will hold sc heparin and trend H and H. No signficant change in clinical status with reference to the edema and hematoma. UTI- UA suggestive of UTI. Will start on ceftriaxone pending final urine clx results. Late onset Alzheimer's dementia- stable, frequent reorientation as needed. Continue home meds of seroquel, risperdone - Encourage oral intake, assist with feedings as needed CKD 3b- Cr stable at baseline of around 1.5 Thrombocytopenia- mild and improving. DVT ppx: SCDs. sc heparin for Hb drop. Dispo: Per [facility] can not take her back until Wednesday. Time spent: Approx 35 mins Updated at bedside. Admission and Anticipated Discharge Date Admission Date: March 30, 2024 Subjective Patient was seen and examined at bedside. She is minimally verbal which is her baseline. Feels fine. No new issues. Denies any pain. Swelling and ecchymoses about the same. Hb was stable off of coumadin and sc heparin was started yesterday, she received 1 dose last night and noted Hb drop today, for which will stop sc heparin and trend H and H. Foul smelling urine and UA was sent which is suggestive of UTI. was updated regarding the plan of care at bedside. Review of Systems Review of Systems: Unobtainable due to reduced consciousness Physical Exam Physical Exam: General: Sitting comfortably in bed, not in distress, on room air HEENT: NEEMA, MMM Chest: Fair breath sounds bilaterally, no wheezes or crackles CVS: Regular rate and rhythm, normal heart sounds, no murmur Abdomen: Soft, non tender, not distended, normal bowel sounds Neuro: Awake, alert, minimally verbal due to dementia MSK/Skin: LUE ecchymoses and edema noted. No S/S of compartment syndrome. Distal NV status intact. Results & Data Results & Data Vital Signs (Past 12 Hours) Vital Signs Temp Pulse Resp BP Pulse Ox O2 Del Method 04/02/24 07:25 Room Air 04/02/24 06:51 36.6 C 79 16 113/67 92 Room Air Laboratory Results Short CBC 04/02/24 Range/Units 05:50 Hgb 9.8 L (12.0-16.0) g/dl Hct 31.0 L (37.0-47.0) % Urine 04/02/24 Range/Units Unknown Urine Color Yellow Urine Appearance Cloudy A (Clear) Urine pH 6.0 (4.5-7.5) Ur Specific [place] 1.017 (1.000-1.030) Urine Protein Trace H (Negative) Urine Glucose (UA) Negative (Negative)
[2024-04-02] MEDS: cefTRIAXone SODIUM 2,000 MG/50 ML BAG IV SCH (14:01)
[2024-04-02 15:03] LABS: Hematocrit (blood only) 33.2 % (37.0-47.0); Hemoglobin 10.2 g/dl (12.0-16.0)
[2024-04-03 05:35] LABS: Hematocrit (blood only) 31.2 % (37.0-47.0); Mean Corpuscular Hemoglobin 27.1 pg (25.0-34.0); Mean Corpuscular Hgb Conc 32.1 g/dL (32.0-36.0); Mean Corpuscular Volume 84.6 fL (80.0-100.0); Mean Platelet Volume 11.9 fL (9.4-12.4); Platelet Count 175 K/uL (130-400); RDW Coefficient of Variation 14.1 % (11.5-14.5); RDW Standard Deviation 43.2 fL (36.4-46.3); Red Blood Count 3.69 M/uL (4.20-5.40); White Blood Count 10.52 K/ul (4.8-10.8)
[2024-04-03 05:50] LABS: BUN Creatinine Ratio 22.3 (10-20); Calcium 8.5 mg/dl (8.6-10.3); Creatinine Clr Calc Pharmacy 25.5 ml/min; Est GFR (African American) 37.3 ml/min; Est GFR (Non-African American) 32.2 ml/min; Potassium 4.5 mmol/L (3.5-5.1)
[2024-04-03 06:08] LABS: INR 1.3 (0.9-1.1); Prothrombin Time 13.9 Seconds (9.0-12.0)
[2024-04-03] MEDS: HEPARIN SOD 5,000 UNIT/0.5 ML VIAL SQ SCH (08:42)
--- NOTE | 2024-04-03 11:27 | Hospitalist Progress Note ---
Date of Service April 03, 2024 Assessment & Plan (1) UTI (urinary tract infection): (2) Supratherapeutic INR: (3) Hematoma of left forearm: (4) Internal jugular vein thrombosis: (5) CKD (chronic kidney disease), stage IV: (6) Late onset Alzheimer's dementia without behavioral disturbance: Plan Left forearm hematoma in setting of supratherapeutic INR on coumadin Chronic left anterior jugular vein thrombus - INR >9.5 on admission which was reversed with oral vit K 5 mg and INR now at 1.1. H and H remains stable. Clinically stable with no evidence of compartment syndrome - US left forearm shows complex fluid collection measures 8.5 x 1.7 x 5.7 cm with surrounding edema. Findings are nonspecific but may represent hematoma. - US LUE shows nonocclusive thrombus is in the left anterior jugular vein, likely a chronic thrombus from the prior exam. No evidence of superficial thrombosis is identified - Continue to hold coumadin as currently no strong indication- chronic thrombus- and moreover could be detrimental with the hematoma. H and H stable. Continue sc heparin for DVT ppx and monitor H and H. UTI- UA suggestive of UTI. Will start on ceftriaxone pending final urine clx results. I called microbiology lab this morning to run the urine culture which had not been run yet. Late onset Alzheimer's dementia- stable, frequent reorientation as needed. Continue home meds of seroquel, risperdone - Encourage oral intake, assist with feedings as needed CKD 3b- Cr stable at baseline of around 1.5 Thrombocytopenia- resolved DVT ppx: SCDs. sc heparin Dispo: Awaiting final urine clx results. Time spent: Approx 35 mins Admission and Anticipated Discharge Date Admission Date: March 30, 2024 Subjective Patient was seen and examined at bedside. She is awake alert, minimally verbal and at baseline. No new issues. Denies any pain. LUE swelling and function stable. Review of Systems Review of Systems: All systems reviewed & are unremarkable except as noted in Subjective Physical Exam Physical Exam: General: Sitting comfortably in bed, not in distress, on room air HEENT: NEEMA, MMM Chest: Fair breath sounds bilaterally, no wheezes or crackles CVS: Regular rate and rhythm, normal heart sounds, no murmur Abdomen: Soft, non tender, not distended, normal bowel sounds Neuro: Awake, alert, minimally verbal due to dementia MSK/Skin: LUE ecchymoses and edema noted. No S/S of compartment syndrome. Distal NV status intact. Results & Data Results & Data Vital Signs (Past 12 Hours) Vital Signs Temp Pulse Resp BP Pulse Ox O2 Del Method 04/03/24 07:30 36.5 C 77 16 137/76 97 Room Air Laboratory Results Short CBC 04/02/24 04/03/24 Range/Units 14:43 05:18 WBC 10.52 (4.8-10.8) K/ul Hgb 10.2 L 10.0 L (12.0-16.0) g/dl Hct 33.2 L 31.2 L (37.0-47.0) % Plt Count 175 (130-400) K/uL BMP 04/03/24 05:18 Sodium 138 Potassium 4.5 Chloride 106 Carbon Dioxide 28 BUN 33 H Creatinine 1.48 H Glucose 95 Calcium 8.5 L Urine 04/02/24 Range/Units Unknown Urine Color Yellow Urine Appearance Cloudy A (Clear) Urine pH 6.0 (4.5-7.5) Ur Specific [place] 1.017 (1.000-1.030) Urine Protein Trace H (Negative) Urine Glucose (UA) Negative (Negative)
[2024-04-04 08:48] LABS: Hematocrit (blood only) 32.7 % (37.0-47.0); Hemoglobin 10.5 g/dl (12.0-16.0)
[2024-04-04 09:10] LABS: BUN Creatinine Ratio 25.5 (10-20); Calcium 8.7 mg/dl (8.6-10.3); Est GFR (African American) 38.2 ml/min; Potassium 3.9 mmol/L (3.5-5.1)
--- NOTE | 2024-04-04 13:23 | Hospitalist Progress Note ---
Date of Service April 04, 2024 Assessment & Plan (1) UTI (urinary tract infection): (2) Supratherapeutic INR: (3) Hematoma of left forearm: (4) Internal jugular vein thrombosis: (5) CKD (chronic kidney disease), stage IV: (6) Late onset Alzheimer's dementia without behavioral disturbance: Plan Left forearm hematoma in setting of supratherapeutic INR on coumadin Chronic left anterior jugular vein thrombus - INR >9.5 on admission which was reversed with oral vit K 5 mg and INR now at 1.1. H and H remains stable. Clinically stable with no evidence of compartment syndrome - US left forearm shows complex fluid collection measures 8.5 x 1.7 x 5.7 cm with surrounding edema. Findings are nonspecific but may represent hematoma. - US LUE shows nonocclusive thrombus is in the left anterior jugular vein, likely a chronic thrombus from the prior exam. No evidence of superficial thrombosis is identified - Continue to hold coumadin as currently no strong indication- chronic thrombus- and moreover could be detrimental with the hematoma. H and H stable. Continue sc heparin for DVT ppx and monitor H and H. UTI- UA suggestive of UTI. Will start on ceftriaxone pending final urine clx results. Urine clx with GNB so far. Late onset Alzheimer's dementia- stable, frequent reorientation as needed. Continue home meds of seroquel, risperdone - Encourage oral intake, assist with feedings as needed CKD 3b- Cr stable at baseline of around 1.5 Thrombocytopenia- resolved DVT ppx: SCDs. sc heparin Dispo: Awaiting final urine clx results, still showing GNB so far. Time spent: Approx 35 mins Admission and Anticipated Discharge Date Admission Date: March 30, 2024 Subjective Patient was seen and examined at bedside. Clinically the same. no new issues. Minimally verbal. No fever, chills, N/V, SOB. Review of Systems Review of Systems: All systems reviewed & are unremarkable except as noted in Subjective Physical Exam Physical Exam: General: Sitting comfortably in bed, not in distress, on room air HEENT: NEEMA, MMM Chest: Fair breath sounds bilaterally, no wheezes or crackles CVS: Regular rate and rhythm, normal heart sounds, no murmur Abdomen: Soft, non tender, not distended, normal bowel sounds Neuro: Awake, alert, minimally verbal due to dementia MSK/Skin: LUE ecchymoses and edema noted. No S/S of compartment syndrome. Distal NV status intact. Results & Data Results & Data Vital Signs (Past 12 Hours) Vital Signs Temp Pulse Resp BP Pulse Ox O2 Del Method 04/04/24 07:20 36.5 C 80 18 154/81 H 96 Room Air Laboratory Results Short CBC 04/04/24 Range/Units 07:50 Hgb 10.5 L (12.0-16.0) g/dl Hct 32.7 L (37.0-47.0) % BMP 04/04/24 07:50 Sodium 140 Potassium 3.9 Chloride 105 Carbon Dioxide 28 BUN 37 H Creatinine 1.45 H Glucose 100 H Calcium 8.7
[2024-04-04] MEDS: HEPARIN SOD 5,000 UNIT/0.5 ML VIAL SQ SCH (14:51)
[2024-04-05] MEDS ORDERED: ERTAPENEM SODIUM 1,000 MG in SYRINGE 0 ML IV SCH (08:00)
[2024-04-05 08:03] LABS: Hematocrit (blood only) 33.5 % (37.0-47.0); Hemoglobin 10.5 g/dl (12.0-16.0)
[2024-04-05] MEDS: ERTAPENEM SODIUM 500 MG in SYRINGE 0 ML IV SCH (09:23)
--- NOTE | 2024-04-05 14:34 | Hospitalist Progress Note ---
Date of Service April 05, 2024 Assessment & Plan (1) UTI (urinary tract infection): (2) Supratherapeutic INR: (3) Hematoma of left forearm: (4) Internal jugular vein thrombosis: (5) CKD (chronic kidney disease), stage IV: (6) Late onset Alzheimer's dementia without behavioral disturbance: Plan Left forearm hematoma in setting of supratherapeutic INR on coumadin Chronic left anterior jugular vein thrombus - INR >9.5 on admission which was reversed with oral vit K 5 mg and INR now at 1.1. H and H remains stable. Clinically stable with no evidence of compartment syndrome - US left forearm shows complex fluid collection measures 8.5 x 1.7 x 5.7 cm with surrounding edema. Findings are nonspecific but may represent hematoma. - US LUE shows nonocclusive thrombus is in the left anterior jugular vein, likely a chronic thrombus from the prior exam. No evidence of superficial thrombosis is identified - Continue to hold coumadin as currently no strong indication- chronic thrombus- and moreover could be detrimental with the hematoma. H and H stable. Continue sc heparin for DVT ppx and monitor H and H. ESBL E coli UTI- Urine clx with ESBL E coli. Will start on ertapenem D1/5. Late onset Alzheimer's dementia- stable, frequent reorientation as needed. Continue home meds of seroquel, risperdone - Encourage oral intake, assist with feedings as needed CKD 3b- Cr stable at baseline of around 1.5 Thrombocytopenia- resolved DVT ppx: sc heparin Dispo: Stable for discharge to SNF on iv ertapenem D1/5. Time spent: Approx 35 mins Unable to reach Prasanth over the phone to provide an update Admission and Anticipated Discharge Date Admission Date: March 30, 2024 Subjective Patient was seen and examined at bedside. About the same. No new issues. Unfortunately urine clx shows ESBL E coli and will need IV antibiotics which can not be given at [facility]. Review of Systems Review of Systems: All systems reviewed & are unremarkable except as noted in Subjective Physical Exam Physical Exam: General: Sitting comfortably in bed, not in distress, on room air HEENT: NEEMA, MMM Chest: Fair breath sounds bilaterally, no wheezes or crackles CVS: Regular rate and rhythm, normal heart sounds, no murmur Abdomen: Soft, non tender, not distended, normal bowel sounds Neuro: Awake, alert, minimally verbal due to dementia MSK/Skin: LUE ecchymoses and edema noted. No S/S of compartment syndrome. Distal NV status intact. Results & Data Results & Data Vital Signs (Past 12 Hours) Vital Signs Temp Pulse Resp BP Pulse Ox O2 Del Method 04/05/24 12:39 36.9 C 04/05/24 11:58 35.9 C L 86 16 100/54 L 97 Room Air 04/05/24 07:43 36.7 C 87 17 148/78 H 97 Room Air Laboratory Results Short CBC 04/05/24 Range/Units 07:27 Hgb 10.5 L (12.0-16.0) g/dl Hct 33.5 L (37.0-47.0) %
--- NOTE | 2024-04-05 17:17 | Oncology Consultation ---
Date of Consultation April 05, 2024 Assessment & Plan (1) Hematoma of left forearm: after bleeding episode generally will hold anticoagulation for a few days to minimize the risk of bleeding. In my opinion the bleeding occurred because of supratherapeutic INR. That has now been reversed. Can consider reinitiating therapy In the next 2 to 3 days since the bleeding was identified on March 30. (2) Supratherapeutic INR: patient has supratherapeutic INR which has been now reversed. Will recommend continued monitoring of INR at this point especially if the patient is to be restarted on Coumadin. at this point I will recommend bridging with Lovenox to Coumadin when the anticoagulation is started in the next 2 to 3 days for the previously identified upper extremity blood clot Plan Reinitiate Coumadin in the next 2 to 3 days as it will be about 7 days since the bleeding episode and her H&H have been stable. Hematology will continue to follow the patient, make appropriate recommendations. Thank you for this interesting hematological consult. History of Present Illness Reason for Consultation: Recommendations for anticoagulation Attending Physician: Phillip Healy MD History of Present Illness the patient is a very pleasant 84-year-old woman with a history of ITP, dementia, history of Lyme. Left anterior jugular thrombosis previously placed on Eliquis. Since then the patient was switched to Coumadin because of cost prohibition. Last INR checked in early March at that time it was 2.1. She was noted to have left arm hematoma measuring 8.5 x 1.7 x 5.7 cm and INR more than 9.5. Platelet count was 85 on admission. Hematology has been consulted to assist in management of anticoagulation for this patient who has thrombocytopenia, elevated INR and a new hematoma. On reversal the INR has declined to 1.1. H&H has been stable. The patient herself is not able to answer any questions. Allergies Allergy/AdvReac Type Severity Reaction Status Date / Time No Known Allergies Allergy Unverified 11/16/23 15:49 Home Medications Medication Instructions Recorded Confirmed Type latanoprost 0.005 % eye drops 1 drp OPB UD 11/16/23 03/30/24 History quetiapine 25 mg tablet 25 mg PO BID 11/16/23 03/30/24 History risperidone 0.5 mg tablet 0.5 mg PO TID 11/16/23 03/30/24 History furosemide 40 mg tablet 40 mg PO MOTUWETHFR@0900 02/11/24 03/30/24 History warfarin 5 mg tablet 5 mg PO DAILY 03/30/24 03/30/24 History Patient History Medical History Late onset Alzheimer's dementia without behavioral disturbance CKD (chronic kidney disease), stage IV Chronic ITP (idiopathic thrombocytopenia) Osteoarthritis Osteoporosis SNHL (sensorineural hearing loss) Surgical History Hx of esophagogastroduodenoscopy Status post total hip replacement, right S/P hip replacement Family History Aunt Diabetes Social History Smoking Status: Unknown if ever smoked Preferred Language: Fijian Communication Ability: Unable 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 Required: No Beliefs That Will Affect Care: None marital status: Current Living Situation: [facility] Feels Safe at Home: Declines to Answer Assistive Devices: Wheelchair Review of Systems Review of Systems: Complete review of system could not be obtained because of patient's current clinical condition Constitutional: as per Subjective / HPI Eyes: as per Subjective / HPI Ear, Nose, Mouth, Throat: as per Subjective / HPI Respiratory: as per Subjective / HPI Cardiovascular: as per Subjective / HPI Gastrointestinal: as per Subjective / HPI Genitourinary: as per Subjective / HPI Musculoskeletal: as per Subjective / HPI Integumentary: as per Subjective / HPI Neurologic: as per Subjective / HPI Psychiatric: as per Subjective / HPI Endocrine: as per Subjective / HPI Hematologic / Lymphatic: as per Subjective / HPI Allergy / Immunological: as per Subjective / HPI Results & Data Vital Signs (Past 12 Hours) Vital Signs Temp Pulse Pulse Resp BP Pulse Ox O2 Del Method 04/05/24 15:44 36.9 C 93 H 16 145/72 H 96 Room Air 04/05/24 12:39 36.9 C 04/05/24 11:58 35.9 C L 86 16 100/54 L 97 Room Air 04/05/24 07:43 36.7 C 87 17 148/78 H 97 Room Air
[2024-04-06 06:57] LABS: Hematocrit (blood only) 32.8 % (37.0-47.0); Hemoglobin 10.3 g/dl (12.0-16.0); Mean Corpuscular Hemoglobin 26.5 pg (25.0-34.0); Mean Corpuscular Hgb Conc 31.4 g/dL (32.0-36.0); Mean Corpuscular Volume 84.5 fL (80.0-100.0); Platelet Count 222 K/uL (130-400); RDW Coefficient of Variation 14.4 % (11.5-14.5); RDW Standard Deviation 44.2 fL (36.4-46.3); Red Blood Count 3.88 M/uL (4.20-5.40); White Blood Count 10.97 K/ul (4.8-10.8)
[2024-04-06 07:14] LABS: BUN Creatinine Ratio 27.6 (10-20); Calcium 8.9 mg/dl (8.6-10.3); Creatinine Clr Calc Pharmacy 28.2 ml/min; Est GFR (African American) 42.1 ml/min; Est GFR (Non-African American) 36.3 ml/min; Potassium 4.1 mmol/L (3.5-5.1)
--- NOTE | 2024-04-06 16:04 | Hospitalist Progress Note ---
Date of Service April 06, 2024 Assessment & Plan (1) UTI (urinary tract infection): (2) Supratherapeutic INR: (3) Hematoma of left forearm: (4) Internal jugular vein thrombosis: (5) CKD (chronic kidney disease), stage IV: (6) Late onset Alzheimer's dementia without behavioral disturbance: Plan Left forearm hematoma in setting of supratherapeutic INR on coumadin Chronic left anterior jugular vein thrombus - INR >9.5 on admission which was reversed with oral vit K 5 mg and INR now wnl. H and H remains stable. Clinically stable with no evidence of compartment syndrome - US left forearm shows complex fluid collection measures 8.5 x 1.7 x 5.7 cm with surrounding edema. Findings are nonspecific but may represent hematoma. - US LUE shows nonocclusive thrombus in the left anterior jugular vein, likely a chronic thrombus from the prior exam. No evidence of superficial thrombosis is identified - Hematology evaled, can resume anticoagulation likely from [facility]. - Will initiate Coumadin therapy along with lovenox bridge from [facility]. Daily pt/inr. ESBL E coli UTI- Urine clx with ESBL E coli. c/w ertapenem D 10/18. Late onset Alzheimer's dementia- stable, frequent reorientation as needed. Continue home meds of seroquel, risperdone. 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 Time spent: Approx 50 mins Admission and Anticipated Discharge Date Admission Date: March 30, 2024 Subjective Patient was seen and examined at bedside. No new issues. Mostly non verbal, replied back "goodmorning". Physical Exam Physical Exam: General: Sitting comfortably in bed, not in distress, on room air HEENT: NEEMA, MMM Chest: Fair breath sounds bilaterally, no wheezes or crackles CVS: Regular rate and rhythm, normal heart sounds, no murmur Abdomen: Soft, non tender, not distended, normal bowel sounds Neuro: Awake, alert, minimally verbal due to dementia MSK/Skin: LUE ecchymoses and edema noted. No S/S of compartment syndrome. Distal NV status intact. Results & Data Results & Data Vital Signs (Past 12 Hours) Vital Signs Temp Pulse Resp BP BP Pulse Ox O2 Del Method 04/06/24 15:47 36.6 C 90 16 124/72 91 Room Air 04/06/24 10:24 Room Air 04/06/24 07:46 36.3 C L 78 14 145/87 H 93 Room Air
[2024-04-07 07:23] LABS: Hematocrit (blood only) 32.8 % (37.0-47.0); Hemoglobin 10.6 g/dl (12.0-16.0); Mean Corpuscular Hemoglobin 27.2 pg (25.0-34.0); Mean Corpuscular Hgb Conc 32.3 g/dL (32.0-36.0); Mean Corpuscular Volume 84.1 fL (80.0-100.0); Mean Platelet Volume 11.7 fL (9.4-12.4); Platelet Count 234 K/uL (130-400); RDW Coefficient of Variation 14.5 % (11.5-14.5); RDW Standard Deviation 44.1 fL (36.4-46.3); White Blood Count 11.27 K/ul (4.8-10.8)
[2024-04-07 07:44] LABS: BUN Creatinine Ratio 26.8 (10-20); Creatinine Clr Calc Pharmacy 26.6 ml/min; Est GFR (African American) 39.2 ml/min; Est GFR (Non-African American) 33.8 ml/min; Magnesium 2.2 mg/dl (1.7-2.4); Phosphorus 3.4 mg/dl (2.5-4.9); Potassium 4.2 mmol/L (3.5-5.1)
--- NOTE | 2024-04-07 16:31 | Hospitalist Progress Note ---
Date of Service April 07, 2024 Assessment & Plan (1) UTI (urinary tract infection): (2) Supratherapeutic INR: (3) Hematoma of left forearm: (4) Internal jugular vein thrombosis: (5) CKD (chronic kidney disease), stage IV: (6) Late onset Alzheimer's dementia without behavioral disturbance: Plan Left forearm hematoma in setting of supratherapeutic INR on coumadin Chronic left anterior jugular vein thrombus - INR >9.5 on admission which was reversed with oral vit K 5 mg and INR now wnl. H and H remains stable. Clinically stable with no evidence of compartment syndrome - US left forearm shows complex fluid collection measures 8.5 x 1.7 x 5.7 cm with surrounding edema. Findings are nonspecific but may represent hematoma. - US LUE shows nonocclusive thrombus in the left anterior jugular vein, likely a chronic thrombus from the prior exam. No evidence of superficial thrombosis is identified - Hematology evaled, can resume anticoagulation likely from [facility]. - Will initiate Coumadin therapy along with lovenox bridge from today. Daily pt/inr. Monitor HnH closely c/w Coumadin 2mg daily 04/07, c/w Lovenox therapeutic dose 04/07. ESBL E coli UTI- Urine clx with ESBL E coli. c/w ertapenem D 10/18. Late onset Alzheimer's dementia- stable, frequent reorientation as needed. Continue home meds of seroquel, risperdone. 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 Time spent: Approx 50 mins Called pt's Prasanth ([phone]) x 2 on 04/07 for general update. couldn't connect. Admission and Anticipated Discharge Date Admission Date: March 30, 2024 Subjective Patient was seen and examined at bedside. No new issues. Mostly non verbal, replied back "no pain". Appears confused. Physical Exam Physical Exam: General: Sitting comfortably in bed, not in distress, on room air HEENT: NEEMA, MMM Chest: Fair breath sounds bilaterally, no wheezes or crackles CVS: Regular rate and rhythm, normal heart sounds, no murmur Abdomen: Soft, non tender, not distended, normal bowel sounds Neuro: Awake, alert, minimally verbal due to dementia MSK/Skin: LUE ecchymoses and edema noted. No S/S of compartment syndrome. Distal NV status intact. Results & Data Results & Data Vital Signs (Past 12 Hours) Vital Signs Temp Pulse Pulse Resp BP BP Pulse Ox 04/07/24 14:51 36.6 C 83 16 152/87 H 04/07/24 13:41 36.9 C 73 20 154/86 H 90 04/07/24 08:44 36.7 C 79 20 149/81 H 93 04/07/24 07:56 O2 Del Method 04/07/24 14:51 04/07/24 13:41 Room Air 04/07/24 08:44 Room Air 04/07/24 07:56 Room Air
[2024-04-07] MEDS: WARFARIN SOD 2 MG TAB PO SCH (17:10)
[2024-04-07] MEDS: ENOXAPARIN INJ 60 MG/0.6 ML SYR SQ SCH (20:48)
[2024-04-08 07:19] LABS: Hematocrit (blood only) 32.1 % (37.0-47.0); Hemoglobin 10.2 g/dl (12.0-16.0)
[2024-04-08 07:49] LABS: INR 1.3 (0.9-1.1); Prothrombin Time 13.6 Seconds (9.0-12.0)
--- NOTE | 2024-04-08 14:28 | Hospitalist Progress Note ---
Date of Service April 08, 2024 Assessment & Plan (1) UTI (urinary tract infection): (2) Supratherapeutic INR: (3) Hematoma of left forearm: (4) Internal jugular vein thrombosis: (5) CKD (chronic kidney disease), stage IV: (6) Late onset Alzheimer's dementia without behavioral disturbance: Plan Left forearm hematoma in setting of supratherapeutic INR on coumadin Chronic left anterior jugular vein thrombus - INR >9.5 on admission which was reversed with oral vit K 5 mg and INR now wnl. H and H remains stable. Clinically stable with no evidence of compartment syndrome - US left forearm shows complex fluid collection measures 8.5 x 1.7 x 5.7 cm with surrounding edema. Findings are nonspecific but may represent hematoma. - US LUE shows nonocclusive thrombus in the left anterior jugular vein, likely a chronic thrombus from the prior exam. No evidence of superficial thrombosis is identified - Hematology evaled, appreciate recs. - c/w Coumadin therapy along with lovenox bridge from 04/07. Daily pt/inr. Monitor HnH closely c/w Coumadin 2mg daily 04/07 -->3mg daily 04/08, c/w Lovenox therapeutic dose 04/07. ESBL E coli UTI- Urine clx with ESBL E coli. c/w ertapenem D 11/15. Late onset Alzheimer's dementia- stable, frequent reorientation as needed. Continue home meds of seroquel, risperdone. 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 Time spent: Approx 40mins Called pt's Prasanth ([phone]) x 2 on 04/07 for general update. couldn't connect. Admission and Anticipated Discharge Date Admission Date: March 30, 2024 Subjective Patient was seen and examined at bedside. No new issues. Mostly non verbal, states "I am fine". Doesn't appear to be in pa in. ROS not able due to cognition status. Physical Exam Physical Exam: General: Sitting comfortably in bed, not in distress, on room air HEENT: NEEMA, MMM Chest: Fair breath sounds bilaterally, no wheezes or crackles CVS: Regular rate and rhythm, normal heart sounds, no murmur Abdomen: Soft, non tender, not distended, normal bowel sounds Neuro: Awake, alert, minimally verbal due to dementia MSK/Skin: LUE ecchymoses and edema noted. No S/S of compartment syndrome. Distal NV status intact. Results & Data Results & Data Vital Signs (Past 12 Hours) Vital Signs Temp Pulse Resp BP Pulse Ox O2 Del Method 04/08/24 07:55 36.5 C 83 16 124/73 91 Room Air
[2024-04-08] MEDS: WARFARIN SOD 3 MG TAB PO SCH (16:17)
[2024-04-09 06:45] LABS: Hematocrit (blood only) 32.1 % (37.0-47.0); Hemoglobin 10.1 g/dl (12.0-16.0)
[2024-04-09 07:21] LABS: INR 1.3 (0.9-1.1)
[2024-04-09] MEDS: WARFARIN SOD 1 MG TAB PO STA (09:21)
--- NOTE | 2024-04-09 15:03 | Hospitalist Progress Note ---
Date of Service April 09, 2024 Assessment & Plan (1) UTI (urinary tract infection): (2) Supratherapeutic INR: (3) Hematoma of left forearm: (4) Internal jugular vein thrombosis: (5) CKD (chronic kidney disease), stage IV: (6) Late onset Alzheimer's dementia without behavioral disturbance: Plan Left forearm hematoma in setting of supratherapeutic INR on coumadin Chronic left anterior jugular vein thrombus - INR >9.5 on admission which was reversed with oral vit K 5 mg and INR now wnl. H and H remains stable. Clinically stable with no evidence of compartment syndrome - US left forearm shows complex fluid collection measures 8.5 x 1.7 x 5.7 cm with surrounding edema. Findings are nonspecific but may represent hematoma. - US LUE shows nonocclusive thrombus in the left anterior jugular vein, likely a chronic thrombus from the prior exam. No evidence of superficial thrombosis is identified - Hematology evaled, appreciate recs. - c/w Coumadin therapy along with lovenox bridge from 04/07. Daily pt/inr. Monitor HnH closely c/w Coumadin 2mg daily 04/07 -->3mg daily 04/08, c/w Lovenox therapeutic dose 04/07. 1 mg additional dose today. ESBL E coli UTI- Urine clx with ESBL E coli. c/w ertapenem D 12/16. Late onset Alzheimer's dementia- stable, frequent reorientation as needed. Continue home meds of seroquel, risperdone. 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 Time spent: Approx 40mins Called pt's Prasanth ([phone]) x 2 on 04/07 for general update. couldn't connect. Admission and Anticipated Discharge Date Admission Date: March 30, 2024 Subjective Patient was seen and examined at bedside. No new issues. Mostly non verbal,minimal communication. Doesn't appear to be in pain. ROS not able due to cognition status. Per RN, eating ok, bowels ok, no new events overnight. Physical Exam Physical Exam: General: Sitting comfortably in bed, not in distress, on room air HEENT: NEEMA, MMM Chest: Fair breath sounds bilaterally, no wheezes or crackles CVS: Regular rate and rhythm, normal heart sounds, no murmur Abdomen: Soft, non tender, not distended, normal bowel sounds Neuro: Awake, alert, minimally verbal due to dementia MSK/Skin: LUE ecchymoses and edema noted. No S/S of compartment syndrome. Distal NV status intact. Results & Data Results & Data Vital Signs (Past 12 Hours) Vital Signs Temp Pulse Resp BP Pulse Ox O2 Del Method 04/09/24 07:45 36.6 C 78 16 124/75 94 Room Air
[2024-04-09] MEDS: ACETAMINOPHEN 325 MG TAB PO PRN (16:53)
[2024-04-10 07:45] LABS: Hematocrit (blood only) 34.1 % (37.0-47.0); Hemoglobin 10.6 g/dl (12.0-16.0); Mean Corpuscular Hgb Conc 31.1 g/dL (32.0-36.0); Mean Platelet Volume 12.1 fL (9.4-12.4); Platelet Count 196 K/uL (130-400); RDW Coefficient of Variation 14.6 % (11.5-14.5); RDW Standard Deviation 46.2 fL (36.4-46.3); Red Blood Count 3.92 M/uL (4.20-5.40); White Blood Count 11.04 K/ul (4.8-10.8)
[2024-04-10 08:05] LABS: Creatinine Clr Calc Pharmacy 25.7 ml/min; Est GFR (African American) 37.6 ml/min; Est GFR (Non-African American) 32.4 ml/min
[2024-04-10 08:11] LABS: INR 1.6 (0.9-1.1); Prothrombin Time 16.5 Seconds (9.0-12.0)
--- NOTE | 2024-04-10 12:03 | Discharge Summary ---
Date of Service April 10, 2024 Admission HPI Per Admitting Provider This is an 84-year-old female with PMHx of idiopathic thrombocytopenia, dementia, left anterior jugular thrombus previously placed on Eliquis during admission at the end of January by cutter machine tender, Dr. Parada. Since then it appears that she had been switched from Eliquis to Coumadin due to cost prohibitive therapy, around March 10. Her INR was checked on 03/14 and was 2.1 at that time, but further checks are not available in the system for review. She presents today with worsening left forearm swelling which occurred at [facility]. Patient herself is unable to provide any pertinent HPI due to dementia. The patient is found to have a left forearm hematoma which is measuring 8.5 x 1.7 x 5.7 cm and INR is reading is >9.5. Patient platelet count is 85, afebrile, white count 9K. Patient was administered p.o. vitamin K 5 mg in the ER. We have been asked to admit the patient for further monitoring. At this time does not appear to have any signs of compartment syndrome, skin is warm/fluctuant over the area of fluid. Admission Exam Per Admitting Provider General: awake, alert, no apparent distress, looks at me with verbal cues, does not follow commands nor does she respond to questions appropriately, quiet, white female Head: Normocephalic, atraumatic ENT: PERRL, EOMI, no pharyngeal exudate, mucous membranes moist Chest: Clear to auscultation, on room air, no adventitious breath sounds Cardiac: Regular rate and rhythm, no murmur, no JVD, normal peripheral pulses, good capillary refill Abdominal: NABS x 4 quadrants, soft, nondistended, nontender to palpation, no rebound or guarding Extremities: 1+ edema BLE, Left upper extremity wrapped in PHIL, erythema is dull, slightly warm, nontender to palpation, no other erythema, calfs nontender to palpation Psych: pleasantly confused Neuro: Pleasantly confused, strength intact bilaterally and rated 5/5, moves all extremities, no motor deficits, speech is clear, no peripheral sensory deficits Principal Diagnosis Left forearm hematoma in the setting of supratherapeutic INR on Coumadin Chronic left anterior jugular vein thrombosis ESBL E. coli UTI Late onset Alzheimer's dementia Discharge Exam General: Sitting comfortably in bed, not in distress, on room air HEENT: NEEMA, MMM Chest: Fair breath sounds bilaterally, no wheezes or crackles CVS: Regular rate and rhythm, normal heart sounds, no murmur Abdomen: Soft, non tender, not distended, normal bowel sounds Neuro: Awake, alert, minimally verbal due to dementia MSK/Skin: LUE ecchymoses and edema noted. No S/S of compartment syndrome. Distal NV status intact. Discharge Data Allergies Allergy/AdvReac Type Severity Reaction Status Date / Time No Known Allergies Allergy Unverified 11/16/23 15:49 Consultations 03/30/24 13:49 ED Decision to Admit Stat 04/03/24 15:17 Consult Hematology Routine 04/05/24 07:49 Consult Hematology Routine Ordered Studies 03/30/24 10:08 US venous doppler UE LT Stat 03/30/24 11:26 US extremity non-vascular ltd Stat Hospital Course (1) UTI (urinary tract infection): (2) Supratherapeutic INR: (3) Hematoma of left forearm: (4) Internal jugular vein thrombosis: (5) CKD (chronic kidney disease), stage IV: (6) Late onset Alzheimer's dementia without behavioral disturbance: Plan Left forearm hematoma in setting of supratherapeutic INR on coumadin Chronic left anterior jugular vein thrombus - INR >9.5 on admission which was reversed with oral vit K 5 mg and INR now wnl. H and H remains stable. Clinically stable with no evidence of compartment syndrome - US left forearm shows complex fluid collection measures 8.5 x 1.7 x 5.7 cm with surrounding edema. Findings are nonspecific but may represent hematoma. - US LUE shows nonocclusive thrombus in the left anterior jugular vein, likely a chronic thrombus from the prior exam. No evidence of superficial thrombosis is identified - Hematology evaled, appreciate recs. Patient will be discharged on Lovenox bridge and warfarin at 3 mg daily. Patient to get PT/INR done in 2 days time and further recommendation from Coumadin clinic at that point. ESBL E coli UTI- Urine clx with ESBL E coli. Completed the course of ertapenem. Late onset Alzheimer's dementia- stable, frequent reorientation as needed. Continue home meds of seroquel, risperdone. 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 Time spent: Approx 40mins Patient is being discharged to SNF with following instruction at the point of discharge: Follow-up with your primary care physician within a week time and likely you will need labs CBC/CMP/magnesium/phosphorus. You were diagnosed with supratherapeutic INR, you were taking 5 mg of Coumadin daily. Your Coumadin dose will be decreased to 3 mg daily. You will be discharged on Lovenox bridge for next 2 to 3 days. You will need repeat PT/INR at 2 days upon discharge. This is very important so that you do not get over anticoagulated. And further recommendation from Coumadin clinic or healthcare provider at that point. You are also diagnosed with ESBL E. coli UTI while in the hospital, you completed the course of antibiotic. Take your medications as prescribed. Please make sure that you are able to get your medications today by calling your pharmacy before you leave the hospital so that your treatment continuity is not broken. Home Health Attestation I certify that this patient is under my care and that I, or a physicians veterinary assistant technician working with me, had a face to-face encounter that meets the home health [id number] encounter requirements with this patient. The encounter with the patient was in whole, or in part, for the following medical condition, which is the primary reason for home health care (list medical condition): I certify that, based on my findings, the following services are medically necessary home health services: My clinical findings support the need for the above services because: Further, I certify that my clinical findings support that this patient is homebound (i.e. absences from home require considerable and taxing effort and are for medical reasons or muslim services or infrequently or of short duration when for other reasons) because: Certification for Home Health Services: Based on the above findings, I certify that this patient is confined to the home and needs intermittent long-term care, physical therapy and/or speech therapy or continues to need occupational therapy. The patient is under my care, and I have initiated the establishment of the plan of care. This patient will be followed by a physician who will periodically review the plan of care. Total Time Total Time Spent Total Time Spent (In Minutes): 45 Discharge Plan Discharge Items Patient Disposition: Transfer Correction Fac Reason For Visit: LEFT FOREARM HEMATOMA, SUPRATHERAPEUTIC INR Discharge Diagnosis: Left forearm hematoma in the setting of supratherapeutic INR on Coumadin Chronic left anterior jugular vein thrombosis ESBL E. coli UTI Late onset Alzheimer's dementia Activity: Resume your previous activity Non-emergency contact: Primary Care Provider Call non-emergency contact if: you have any medication questions and your symptoms worsen Follow-up/Referrals: Aisha Earl [Primary Care Provider] - Diet: Regular Diet Texture: Pureed (blended smooth) Addtl Attending Provider Instructions: Follow-up with your primary care physician within a week time and likely you will need labs CBC/CMP/magnesium/phosphorus. You were diagnosed with supratherapeutic INR, you were taking 5 mg of Coumadin daily. Your Coumadin dose will be decreased to 3 mg daily. You will be discharged on Lovenox bridge for next 2 to 3 days. You will need repeat PT/INR at 2 days upon discharge. This is very important so that you do not get over anticoagulated. And further recommendation from Coumadin clinic or healthcare provider at that point. You are also diagnosed with ESBL E. coli UTI while in the hospital, you completed the course of antibiotic. Take your medications as prescribed. Please make sure that you are able to get your medications today by calling your pharmacy before you leave the hospital so that your treatment continuity is not broken. Pending Studies at Discharge: No Stand-Alone Forms: My [facility] Skilled Items Patient informed of condition?: Yes DNR: No Discharge Level of Care: Skilled Communicable Disease: No Discharge Prognosis: Stable Lines: None Urinary Catheter: No Medications and DC Order Prescriptions: New enoxaparin 60 mg/0.6 mL Syringe 60 mg subcut HS 3 Days Qty: 1.8 0RF warfarin 3 mg Tablet 3 mg PO DAILY@1600 Qty: 30 0RF Continued quetiapine 25 mg tablet 25 mg PO BID latanoprost 0.005 % drops 1 drp OPB UD Rx Instructions: last filled 11/25, 25 day supply risperidone 0.5 mg tablet 0.5 mg PO TID furosemide 40 mg tablet 40 mg PO MOTUWETHFR@0900 Discontinued warfarin 5 mg tablet 5 mg PO DAILY Discharge Orders: Discharge Order (Routine); Ordered 04/10/24 Ordered By: Edi Morgan Admission Data Admit Date/Time: 03/30/24 13:54 Attending Provider: Edi Morgan Admit Provider: Aditya Armijo Primary Care Provider: Aisha Earl Other Providers: Aditya Armijo; En Parada
--- NOTE | 2024-04-12 13:15 | Coding Query ---
CODING QUERY To promote full compliance with coding requirements relating to patient care, provider participation is requested in all cases of network intern uncertainty. Please assist us with the question(s) below: Coding Question(s): "In the setting of" indicates that the two conditions exist together, it does not indicate a aagbd-ozx-rfbzdk relationship. Could you please clarify the meaning of the following documentation: (Left forearm hematoma in setting of supratherapeutic INR on coumadin) Physician's Response(s): ( ) Left forearm hematoma and supratherpeutic INR coexist (without oynqs-loq-pakzby relationship) ( ) Left forearm hematoma is due to supratherpeutic INR (with cfazt-pda-kgxbih relationship) (x ) Other, please specify. hematoma likely due to supra INR but can't tell with certainty. MTDD
== END 2024-04-10 14:05 | disposition home or self-care (01) | DRG 605 ==
LOC: ED 09:41 → 3W 13:54 → SUATTDRO 13:54 → 3W 16:12

== ENCOUNTER 2024-04-30 09:42 | Inpatient (IN) ==
--- NOTE | 2024-04-30 09:59 | XRay Report ---
XR chest 1V portable HISTORY: syncope COMPARISON: Chest 02/11/2024. FINDINGS: Rotated study. No pneumothorax. The cardiac silhouette is normal in size. The right lung is clear. Left basilar linear densities favor subsegmental atelectasis or scarring. This is similar to the prior study. Mild interstitial thickening which is likely chronic. No evidence for pulmonary joy a. No acute fractures. IMPRESSION: 1. No acute process within the chest. 2. Left basilar linear densities favor subsegmental atelectasis. This is similar to the prior study ACT 112: Negative or not required by law. Electronically signed by: Gurpreet Wiggins M.D. 04/30/2024 9:57 AM
--- NOTE | 2024-04-30 10:04 | Emergency Department Note ---
Impression & Plan Unresponsive episode, Seizure-like activity, Aspiration pneumonia, Multiple rib fractures, Dementia ED Provider Note NAME: PEGGY PRITCHETT AGE: 84 SEX: F : 1940 ARRIVES VIA: Ambulance INFORMANT: Patient ED PROVIDER(S): Rajat Ace MD CHIEF COMPLAINT: Syncope, question seizure activity, hypoxia, dementia. 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 coli UTI, CKD who presents to emergency department via EMS from her residential facility for acute onset syncope with report of seizure-like activity where was also reported that the patient had a brief CPR and was noted to be hypoxic in the 70s on room air by EMS. The patient arrived emergency department awake and alert responding to verbal stimulus. O2 saturation had improved to 100% on nonrebreather and was down titrated to 6 L via oxime mask. Patient is moving all extremities equally with generalized weakness without focal deficits. The patient is currently nonverbal which per EMS report is similar to her baseline though the patient's reports that she will have conversations. Her dementia is severe to the point where she does not regularly feed herself. On arrival the patient is afebrile with stable vital signs. She appears clinically dry. She has mild ecchymosis of the left forehead. There is no ecchymosis or tenderness of the anterior chest wall. Abdomen is nontender. EKG without overt acute ischemia. CXR with basilar densities better characterized on CT of the chest. WBC within normal limits. There is no neutrophilia however there is left shift. H/H similar to prior. Platelets 116K, similar to prior range values. INR 3.1,. Chemistry without metabolic acidosis. Creatinine is 1.59, similar to prior values in the setting of CKD. LFTs are unremarkable. Electrolytes unremarkable. CPK within normal limits. High-sensitivity troponin 17, mildly elevated above normal limit. Lipase is normal. UA is suspicious for infection with positive nitrites, WBCs and 2+ bacteria. CT of the head and CT of the head and neck were performed and were negative for ICH or acute ischemia. Moderate to severe cerebral vascular disease as described without large vessel occlusion. CTA of the chest was negative for PE however bibasilar densities are suspicious for pneumonia and given the context suspicious for aspiration pneumonia. Acute to subacute rib fractures are described however given the lack of chest wall tenderness or ecchymosis, unclear if related to her chest compressions today though cannot be completely excluded. Given the patient's urinalysis suspicious for infection the setting of her history of ESBL E. coli with concern for aspiration patient was treated with ertapenem. Of note, I did review with the patient's at the bedside goals of care and he felt confident that the patient would not want CPR or intubation if this were necessary. Case was discussed with Lay Wesley PAC with Dr. [facility] hospitalist, who will evaluate the patient for admission. Triage Nursing notes reviewed and agree them. Prior/external medical records reviewed Vital Signs: reviewed Differential diagnosis: Vasovagal event, dehydration, infection, hypoglycemia, electrolyte abnormalities, cardiac sources, intracerebral event, pulmonary embolism, seizure, toxicologic, neurologic, as well as other pathologies. ER treatment provided: See below. Diagnostics interpreted by me: ECG: Normal sinus rhythm, 95 bpm, no ectopy, no overt ST elevation or depression, QTc 449 QRS 86. Cardiac Monitoring: An order for continuous cardiac monitoring was placed and demonstrated Normal sinus rhythm, 95 bpm, no ectopy Laboratory studies: See below Imaging studies: See below Consultation(s): Lay Wesley PAC with Dr. 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 coli UTI, CKD who presents to emergency department via EMS from her residential facility for acute onset syncope with report of seizure-like activity where was also reported that the patient had a brief CPR and was noted to be hypoxic in the 70s on room air by EMS. ROS: See above HPI for pertinent positives & negatives. A total of 10 systems reviewed and were otherwise negative. VITALS:See Below PHYSICAL EXAMINATION: GENERAL: Awake, alert, acute on chronically ill-appearing, in no distress HENT: Normocephalic, Mild left forehead ecchymosis. Oropharynx dry mucous membranes EYES: Normal conjunctiva. Sclera non-icteric. NECK: Supple. No nuchal rigidity. FROM. No JVD. RESPIRATORY: Clear to auscultation. CARDIAC: Regular rate, normal rhythm. Extremities warm and well perfused. Pulses equal. ABDOMEN: Soft, non-distended. No tenderness to palpation. No rebound or guarding. No masses. MUSCULOSKELETAL: Chest examination reveals no tenderness. The back is symmetrical on inspection without obvious abnormality. There is no CVA tenderness to palpation. No joint edema. LOWER EXTREMITIES: Calves are equal size bilaterally and non-tender. No edema. No discoloration. NEURO: Spontaneous awake and alert to voice and will direct gaze purposefully on command. Nonverbal similar to report of patient's baseline from facility. Moving all extremities equally with generalized weakness with 4/5 strength. SKIN: No rash or jaundice noted. Rajat Ace MD Past Med/Surg History Problem List (Updated 04/30/24 @ 23:38 by Rajat Ace MD) Dementia (Acute) Aspiration pneumonia (Acute) Multiple rib fractures (Acute) Unresponsive episode (Acute) Seizure-like activity (Acute) UTI (urinary tract infection) Supratherapeutic INR (Acute) Hematoma of left forearm (Acute) Internal jugular vein thrombosis (Acute) Medical History Late onset Alzheimer's dementia without behavioral disturbance CKD (chronic kidney disease), stage IV Chronic ITP (idiopathic thrombocytopenia) Osteoarthritis Osteoporosis SNHL (sensorineural hearing loss) Surgical History Hx of esophagogastroduodenoscopy Status post total hip replacement, right S/P hip replacement Family History Aunt Diabetes Social History Smoking Status: Unknown if ever smoked Preferred Language: Northern Irish Communication Ability: Unable Office Machine Installer Required: No Beliefs That Will Affect Care: None marital status: Current Living Situation: Assisted Feels Safe at Home: Yes Assistive Devices: Wheelchair Allergies Allergies Allergy/AdvReac Type Severity Reaction Status Date / Time No Known Allergies Allergy Unverified 11/16/23 15:49 Home Meds Home Medications Medication Instructions Recorded Confirmed latanoprost 0.005 % eye drops 1 drp OPB .DAILY@1900 11/16/23 04/30/24 quetiapine 25 mg tablet 25 mg PO .DAILY@0800,1700 11/16/23 04/30/24 risperidone 0.5 mg tablet 0.5 mg PO .@0800,1200,1700 11/16/23 04/30/24 furosemide 40 mg tablet 40 mg PO UD 02/11/24 04/30/24 ibuprofen 600 mg tablet 600 mg PO .DAILY@0800 04/30/24 04/30/24 ibuprofen 600 mg tablet 600 mg PO HS PRN swelling and pain 04/30/24 04/30/24 warfarin 2.5 mg tablet 2.5 mg PO DAILY 04/30/24 04/30/24 Results & Data (ED) Vital Signs Vital Signs - 24 hr 04/30/24 09:35 04/30/24 09:41 04/30/24 09:50 Temperature 36.5 C Temperature Source Temporal Artery Scan Pulse Rate 85 Pulse Rate [Apical] 79 Respiratory Rate 18 22 Respiratory Depth Blood Pressure 138/76 Blood Pressure [Left Arm] 130/67 Blood Pressure Mean 96 Blood Pressure Mean [Left Arm] 88 Pulse Oximetry 97 97 100 Oxygen Delivery Method Non-rebreather Non-rebreather Non-rebreather Oxygen Flow Rate 15 15 6 Sepsis Recent Fever Within 48 Hours No Sepsis New/Unexplained Change in Mental Status N/A Sepsis Action Taken by Nursing No Action Required 04/30/24 09:50 04/30/24 09:57 04/30/24 11:00 Temperature Temperature Source Pulse Rate 83 Pulse Rate [Apical] 79 Respiratory Rate 18 Respiratory Depth Normal Blood Pressure Blood Pressure [Left Arm] 136/81 Blood Pressure Mean Blood Pressure Mean [Left Arm] 99 Pulse Oximetry 100 Oxygen Delivery Method Room Air Non-rebreather Oxygen Flow Rate 10 Sepsis Recent Fever Within 48 Hours Sepsis New/Unexplained Change in Mental Status Sepsis Action Taken by Nursing 04/30/24 12:29 Temperature Temperature Source Pulse Rate Pulse Rate [Apical] 80 Respiratory Rate 14 Respiratory Depth Blood Pressure Blood Pressure [Left Arm] 134/83 Blood Pressure Mean Blood Pressure Mean [Left Arm] 100 Pulse Oximetry 96 Oxygen Delivery Method Oxymask Oxygen Flow Rate 6 Sepsis Recent Fever Within 48 Hours Sepsis New/Unexplained Change in Mental Status Sepsis Action Taken by Nursing Laboratory Data Attestation: I reviewed the patient's lab results. 04/30/24 09:50 04/30/24 09:50 Lab Results 04/30/24 04/30/24 04/30/24 Range/Units 09:50 09:59 10:58 WBC 10.30 (4.8-10.8) K/ul RBC 4.27 (4.20-5.40) M/uL Hgb 11.2 L (12.0-16.0) g/dl POC Hgb 11.6 L (12.0-16.0) g/dl Hct 36.2 L (37.0-47.0) % POC Hct 34 L (37-47) % MCV 84.8 (80.0-100.0) fL MCH 26.2 (25.0-34.0) pg MCHC 30.9 L (32.0-36.0) g/dL RDW Std Deviation 45.1 (36.4-46.3) fL RDW Coeff of Yajaira 14.7 H (11.5-14.5) % Plt Count 116 L (130-400) K/uL MPV 12.4 (9.4-12.4) fL Immature Gran % (Auto) 5.6 % Neut % (Auto) 51.8 % Lymph % (Auto) 29.0 % Nelson % (Auto) 7.1 % Eos % (Auto) 5.7 % Baso % (Auto) 0.8 % Neut # (Auto) 5.33 (1.40-6.50) K/uL Lymph # (Auto) 2.99 (1.20-3.40) K/uL Nelson # (Auto) 0.73 H (0.11-0.59) K/uL Eos # (Auto) 0.59 H (0.00-0.50) K/uL Baso # (Auto) 0.08 (0.00-0.20) K/uL Immature Gran # (Auto) 0.58 H (0.01-0.20) K/uL Polychromasia 1+ PT 30.7 H (9.0-12.0) Seconds INR 3.1 H (0.9-1.1) POC Sodium 139 (135-144) mmol/L Sodium 141 (136-145) mmol/L POC Potassium 3.7 (3.3-5.0) mmol/L Potassium 3.7 (3.5-5.1) mmol/L POC Chloride 103 (101-112) mmol/L Chloride 104 (98-107) mmol/L Carbon Dioxide 25 (21-32) mmol/L POC Total CO2 25 (24-31) mmol/L Anion Gap 12 H (3-11) POC Anion Gap 15.0 L (16-25) mmol/L POC BUN 23 H (7-18) mg/dl BUN 25 H (6-23) mg/dl Creatinine 1.59 H (0.6-1.2) mg/dl POC Creatinine 1.6 H (0.6-1.3) mg/dl Est Cr Clr Drug Dosing 24.6 ml/min Est GFR ( Amer) 34.2 ml/min Est GFR (Non-Af Amer) 29.5 ml/min BUN/Creatinine Ratio 15.7 (10-20) Glucose 147 H (70-99(Fasting)) mg/dl POC Glucose (other) 141 H (70-99) mg/dl Calcium 8.9 (8.6-10.3) mg/dl POC Ioniz Calcium Janie 1.13 (1.12-1.32) mmol/l Phosphorus 3.3 (2.5-4.9) mg/dl Magnesium 2.3 (1.7-2.4) mg/dl Total Bilirubin 0.7 (0.2-1.0) mg/dl AST 33 (13-39) U/L ALT 28 (7-52) U/L Alkaline Phosphatase 64 (34-104) U/L Total Creatine Kinase 41 (26-192) U/L Troponin I High Sens 17.0 H (0-14) pg/ml Total Protein 5.8 L (6.0-8.3) gm/dl Albumin 3.5 (3.4-5.0) gm/dl Globulin 2.3 L (2.5-4.0) gm/dl Albumin/Globulin Ratio 1.5 (0.9-2) Lipase 27 (11-82) U/L Urine Color Yellow Urine Appearance Turbid A (Clear) Urine pH 5.5 (4.5-7.5) Ur Specific [place] 1.022 (1.000-1.030) Urine Protein 1+ H (Negative) Urine Glucose (UA) Negative (Negative) Urine Ketones Negative (Negative) Urine Blood 1+ H (Negative) Urine Nitrite Negative (Negative) Urine Bilirubin Negative (Negative) Urine Urobilinogen Negative (Negative) Ur Leukocyte Esterase 3+ H (Negative) Urine WBC (Auto) >50 H (0-5) /hpf Urine RBC (Auto) 11-20 H (0-2) /hpf U Hyaline Cast (Auto) 0-2 (0-2) /lpf U Epithel Cells (Auto) >20 H (0-2) /hpf Urine Bacteria (Auto) 2+ H (None Seen) Urine Yeast Present A (None Prsent) Administered Medications Acetaminophen (Acetaminophen 500 Mg Tab) 500 mg PO Q6H [facility] Stop: 05/30/24 13:47 Last Admin: 04/30/24 21:12 Dose: Not Given Documented By: Admin: 04/30/24 14:35 Dose: 500 mg Documented By: RHONDA Levetiracetam 500 mg/ Sodium (Chloride) 105 mls @ 420 mls/hr IV Q12H [facility] Stop: 05/30/24 21:59 Last Infusion: 04/30/24 22:24 Dose: Infused Documented By: Admin: 04/30/24 22:05 Dose: 420 mls/hr Documented By: SD Sodium Chloride (Nss) 1,000 mls @ 80 mls/hr IV .[id number] [facility]IO[facility] Stop: 05/01/24 02:17 Last Admin: 04/30/24 14:34 Dose: 80 mls/hr Documented By: RHONDA Latanoprost (Latanoprost 0.005% Op Soln 2.5 Ml Btl) 1 drops OPB DAILY@1900 [facility] Stop: 05/30/24 18:59 Last Admin: 04/30/24 22:03 Dose: Not Given Documented By: SD Quetiapine Fumarate (Quetiapine Fumarate 25 Mg Tablet) 25 mg PO DAILY@0800,1700 [facility] Stop: 05/30/24 16:59 Last Admin: 04/30/24 16:46 Dose: 25 mg Documented By: RHONDA Risperidone (Risperidone 0.5 Mg Tablet) 0.5 mg PO 0800,1200,1700 [facility] Stop: 05/30/24 13:47 Last Admin: 04/30/24 16:46 Dose: 0.5 mg Documented By: Admin: 04/30/24 14:35 Dose: 0.5 mg Documented By: RHONDA Discontinued Medications Sodium Chloride (Nss) 1,000 mls @ 999 mls/hr IV .Q1H1M ONE Stop: 04/30/24 10:42 Last Infusion: 04/30/24 11:57 Dose: Infused Documented By: Admin: 04/30/24 10:21 Dose: 999 mls/hr Documented By: ANTONIO Ertapenem (Invanz) 10 mls @ 2 mls/min IV NOW STA Stop: 04/30/24 12:13 Last Admin: 04/30/24 12:53 Dose: 2 mls/min Documented By: CEF Ioversol (Optiray 320 125ml) 119 ml IV ONCE ONE Stop: 04/30/24 10:12 Last Admin: 04/30/24 10:11 Dose: 119 ml Documented By: EVARISTO Levetiracetam (Levetiracetam 500 Mg/5 Ml Vial) 500 mg IV NOW STA Stop: 04/30/24 13:23 Last Admin: 04/30/24 14:37 Dose: 500 mg Documented By: RHONDA Imaging Data Radiologist's Impression: Chest CTA 04/30/24 10:00 CHEST CTA for PULMONARY ARTERIES CT DOSE: HISTORY: syncope, hypoxia PE TECHNIQUE: Multiaxial CT images of the chest were performed following the intravenous administration of contrast to evaluate the pulmonary arteries. 3D/Maximal intensity projection images were also obtained. Sagittal and coronal reformations were also reviewed. A dose lowering technique was utilized adhering to the principles of ALARA. COMPARISON STUDY: Chest CT 02/26/2018. FINDINGS: Multiple acute to subacute bilateral anterior/lateral rib fractures. There is an acute to subacute nondisplaced right T10 transverse process fracture. Focal indentation at the anterior cortex of the mid sternum suggestive of an old, healed fracture. There is an acute to subacute there is an acute to subacute compression/burst fracture at T10 primarily involving the superior endplate. This demonstrates mild to moderate loss of height centrally. There is involvement of the posterior cortex with 2 mm of retropulsion. No significant central canal narrowing. Mild elevation of the left hemidiaphragm. The visualized liver and spleen are unremarkable. Normal esophagus. The heart is mildly enlarged. No pleural or pericardial effusions. No no mediastinal hematoma or lymphadenopathy. Suboptimal evaluation of the lower lobe subsegmental pulmonary arteries due to the motion artifact. However, no definite filling defects within the pulmonary arteries to suggest a pulmonary embolus. No pneumothorax. The central airways are patent. The upper lung zones are clear. Patchy densities within the lung bases. This may represent atelectasis or a pneumonia. IMPRESSION: 1. Multiple acute to subacute bilateral anterior/lateral rib fractures. No pneumothorax. 2. There is an acute to subacute compression/burst fracture at T10 with 2 mm of retropulsion. No associated central canal narrowing. There is also nondisplaced right T10 transverse process fracture. 3. No evidence for pulmonary embolus with limitations as described above. 4. Patchy bibasilar densities are nonspecific and could represent atelectasis or a pneumonia. ACT 112: Negative or not required by law. Electronically signed by: Gurpreet Wiggins M.D. 04/30/2024 11:56 AM Chest X-Ray 04/30/24 09:41 XR chest 1V portable HISTORY: syncope COMPARISON: Chest 02/11/2024. FINDINGS: Rotated study. No pneumothorax. The cardiac silhouette is normal in size. The right lung is clear. Left basilar linear densities favor subsegmental atelectasis or scarring. This is similar to the prior study. Mild interstitial thickening which is likely chronic. No evidence for pulmonary edema. No acute fractures. IMPRESSION: 1. No acute process within the chest. 2. Left basilar linear densities favor subsegmental atelectasis. This is similar to the prior study ACT 112: Negative or not required by law. Electronically signed by: Gurpreet Wiggins M.D. 04/30/2024 9:57 AM Chest CTA 04/30/24 10:00 CHEST CTA for PULMONARY ARTERIES CT DOSE: HISTORY: syncope, hypoxia PE TECHNIQUE: Multiaxial CT images of the chest were performed following the intravenous administration of contrast to evaluate the pulmonary arteries. 3D/Maximal intensity projection images were also obtained. Sagittal and coronal reformations were also reviewed. A dose lowering technique was utilized adhering to the principles of ALARA. COMPARISON STUDY: Chest CT 02/26/2018. FINDINGS: Multiple acute to subacute bilateral anterior/lateral rib fractures. There is an acute to subacute nondisplaced right T10 transverse process fracture. Focal indentation at the anterior cortex of the mid sternum suggestive of an old, healed fracture. There is an acute to subacute there is an acute to subacute compression/burst fracture at T10 primarily involving the superior endplate. This demonstrates mild to moderate loss of height centrally. There is involvement of the posterior cortex with 2 mm of retropulsion. No significant central canal narrowing. Mild elevation of the left hemidiaphragm. The visualized liver and spleen are unremarkable. Normal esophagus. The heart is mildly enlarged. No pleural or pericardial effusions. No no mediastinal hematoma or lymphadenopathy. Suboptimal evaluation of the lower lobe subsegmental pulmonary arteries due to the motion artifact. However, no definite filling defects within the pulmonary arteries to suggest a pulmonary embolus. No pneumothorax. The central airways are patent. The upper lung zones are clear. Patchy densities within the lung bases. This may represent atelectasis or a pneumonia. IMPRESSION: 1. Multiple acute to subacute bilateral anterior/lateral rib fractures. No pneumothorax. 2. There is an acute to subacute compression/burst fracture at T10 with 2 mm of retropulsion. No associated central canal narrowing. There is also nondisplaced right T10 transverse process fracture. 3. No evidence for pulmonary embolus with limitations as described above. 4. Patchy bibasilar densities are nonspecific and could represent atelectasis or a pneumonia. ACT 112: Negative or not required by law. Electronically signed by: Gurpreet Wiggins M.D. 04/30/2024 11:[address] 04/30/24 10:[address] DOSE: HISTORY: syncope TECHNIQUE: Multiaxial CT images of the head were performed without the use of intravenous contrast. Automated exposure control was utilized for this study. A dose lowering technique was utilized adhering to the principles of ALARA. Comparison: None. Findings: The paranasal sinuses and mastoid air cells are clear. The calvarium and skull base are intact. There is no mass, hematoma, midline shift, acute infarct. White matter hypodensity is nonspecific but suggestive of microvascular ischemic change. The ventricles and sulci demonstrate mild age-related involutional changes. Impression: No acute intracranial abnormality. Atrophy and microvascular ischemic changes. ACT 112: Negative or not required by law. Electronically signed by: Gurpreet Wiggins M.D. 04/30/2024 10:29 AM Head CTA 04/30/24 10:00 HEAD & NECK CTA HISTORY: syncope, hypoxia PE TECHNIQUE: Multiaxial CT images of the head were performed the intravenous administration of contrast to evaluate the major cerebral vessels. Multiaxial CT images of the neck were also performed following the intravenous administration of contrast to evaluate the major cervical vessels. 3D/MIP images were also obtained. Sagittal and coronal reformats were reviewed. A dose lowering technique was utilized adhering to the principles of ALARA. COMPARISON: None. FINDINGS: There is no mass, hematoma, midline shift, or acute infarct. Visualized intracranial internal carotid arteries, distal vertebral arteries, and basilar artery are widely patent. There is no significant stenosis, occlusion, or aneurysm seen within the bilateral ACAs, MCAs, or left MANAGER QUANTITATIVE. Severely hypoplastic distal right vertebral artery. Moderate to severe focal narrowing within the proximal right MANAGER QUANTITATIVE best seen on image 59. The mid to distal right MANAGER QUANTITATIVE is widely patent.. The major dural venous sinuses are patent. The aortic arch and proximal great vessels are widely patent. There is no significant stenosis, occlusion, or dissection identified within the bilateral common carotid, internal carotid, or vertebral arteries. Hypoplastic right vertebral artery. Mild calcified plaque within the right carotid bifurcation. IMPRESSION: 1. Moderate to severe focal narrowing within the proximal right MANAGER QUANTITATIVE. The bilateral ACAs and MCAs are widely patent. 2. No significant stenosis, occlusion, or dissection identified within the carotid or vertebral arteries. 3. Hypoplastic right vertebral artery. Electronically signed by: Gurpreet Wiggins M.D. 04/30/2024 10:37 AM Neck CTA 04/30/24 10:00 HEAD & NECK CTA HISTORY: syncope, hypoxia PE TECHNIQUE: Multiaxial CT images of the head were performed the intravenous administration of contrast to evaluate the major cerebral vessels. Multiaxial CT images of the neck were also performed following the intravenous administration of contrast to evaluate the major cervical vessels. 3D/MIP images were also obtained. Sagittal and coronal reformats were reviewed. A dose lowering technique was utilized adhering to the principles of ALARA. COMPARISON: None. FINDINGS: There is no mass, hematoma, midline shift, or acute infarct. Visualized intracranial internal carotid arteries, distal vertebral arteries, and basilar artery are widely patent. There is no significant stenosis, occlusion, or aneurysm seen within the bilateral ACAs, MCAs, or left MANAGER QUANTITATIVE. Severely hypoplastic distal right vertebral artery. Moderate to severe focal narrowing within the proximal right MANAGER QUANTITATIVE best seen on image 59. The mid to distal right MANAGER QUANTITATIVE is widely patent.. The major dural venous sinuses are patent. The aortic arch and proximal great vessels are widely patent. There is no significant stenosis, occlusion, or dissection identified within the bilateral common carotid, internal carotid, or vertebral arteries. Hypoplastic right vertebral artery. Mild calcified plaque within the right carotid bifurcation. IMPRESSION: 1. Moderate to severe focal narrowing within the proximal right MANAGER QUANTITATIVE. The bilateral ACAs and MCAs are widely patent. 2. No significant stenosis, occlusion, or dissection identified within the carotid or vertebral arteries. 3. Hypoplastic right vertebral artery. Electronically signed by: Gurpreet Wiggins M.D. 04/30/2024 10:37 AM Discharge Plan Visit Data Chief Complaint: Seizure Stated Complaint: Seizure, hypoxia ED Provider: Rajat Ace Discharge Problem: Unresponsive episode, Seizure-like activity, Aspiration pneumonia, Multiple rib fractures, Dementia Patient Disposition: Admitted As Inpatient Discharge Instructions Interventions: ED Discharge Assessment Last Done: 04/30/24 13:16 Discharge Problem: Aspiration pneumonia Qualifiers: Aspiration pneumonia type: unspecified Laterality: bilateral Lung location: l ower lobe of lung Qualified Code(s): J69.0 - Pneumonitis due to inhalation of food and vomit Multiple rib fractures Qualifiers: Encounter type: initial encounter Fracture type: closed Laterality: bilateral Q ualified Code(s): S22.43XA - Multiple fractures of ribs, bilateral, initial encounter for closed fracture Dementia Qualifiers: Dementia type: unspecified type Dementia severity: severe Dementia behavioral or psychological symptom: unspecified whether behavioral, psychotic, or mood disturbance or anxiety Qualified Code(s): F03.C0 - Unspecified dementia, severe, without behavioral disturbance, psychotic disturbance, mood disturbance, and anxiety
[2024-04-30 10:10] LABS: Hematocrit (blood only) 36.2 % (37.0-47.0); Hemoglobin 11.2 g/dl (12.0-16.0); Mean Corpuscular Hemoglobin 26.2 pg (25.0-34.0); Mean Corpuscular Hgb Conc 30.9 g/dL (32.0-36.0); Mean Corpuscular Volume 84.8 fL (80.0-100.0); Mean Platelet Volume 12.4 fL (9.4-12.4); Platelet Count 116 K/uL (130-400); RDW Coefficient of Variation 14.7 % (11.5-14.5); RDW Standard Deviation 45.1 fL (36.4-46.3); Red Blood Count 4.27 M/uL (4.20-5.40)
[2024-04-30] MEDS: OPTIRAY 320 125ml IV ONE (10:11)
[2024-04-30 10:13] LABS: iSTAT Creatinine 1.6 mg/dl (0.6-1.3); iSTAT Hemoglobin 11.6 g/dl (12.0-16.0); iSTAT Ionized Calcium 1.13 mmol/l (1.12-1.32); iSTAT Potassium 3.7 mmol/L (3.3-5.0)
[2024-04-30] MEDS: SODIUM CHLORIDE 0.9% 1,000 ML IV ONE (10:21)
[2024-04-30 10:24] LABS: Albumin Globulin Ratio 1.5 (0.9-2); Albumin Level 3.5 gm/dl (3.4-5.0); BUN Creatinine Ratio 15.7 (10-20); Bilirubin,Total 0.7 mg/dl (0.2-1.0); Calcium 8.9 mg/dl (8.6-10.3); Creatinine Clr Calc Pharmacy 24.6 ml/min; Est GFR (African American) 34.2 ml/min; Est GFR (Non-African American) 29.5 ml/min; Globulin 2.3 gm/dl (2.5-4.0); Magnesium 2.3 mg/dl (1.7-2.4); Phosphorus 3.3 mg/dl (2.5-4.9); Potassium 3.7 mmol/L (3.5-5.1); Total Protein 5.8 gm/dl (6.0-8.3)
[2024-04-30 10:31] LABS: INR 3.1 (0.9-1.1); Prothrombin Time 30.7 Seconds (9.0-12.0)
--- NOTE | 2024-04-30 10:31 | CT Scan Report ---
HEAD CT NONCONTRAST CT DOSE: HISTORY: syncope TECHNIQUE: Multiaxial CT images of the head were performed without the use of intravenous contrast. A utomated exposure control was utilized for this study. A dose lowering technique was utilized adheri ng to the principles of ALARA. Comparison: None. Findings: The paranasal sinuses and mastoid air cells are clear. The calvarium and skull base are int act. There is no mass, hematoma, midline shift, acute infarct. White matter hypodensity is nonspecifi c but suggestive of microvascular ischemic change. The ventricles and sulci demonstrate mild age-rela elijah involutional changes. Impression: No acute intracranial abnormality. Atrophy and microvascular ischemic changes. ACT 112: Negative or not required by law. Electronically signed by: Gurpreet Wiggins M.D. 04/30/2024 10:29 AM
[2024-04-30 10:33] LABS: Basophils # (auto) 0.08 K/uL (0.00-0.20); Basophils % (auto) 0.8 %; Eosinophils # (auto) 0.59 K/uL (0.00-0.50); Eosinophils % (auto) 5.7 %; Immature Granulocytes # (auto) 0.58 K/uL (0.01-0.20); Immature Granulocytes % (auto) 5.6 %; Lymphocytes # (auto) 2.99 K/uL (1.20-3.40); Monocytes # (auto) 0.73 K/uL (0.11-0.59); Monocytes % (auto) 7.1 %; Neutrophils # (auto) 5.33 K/uL (1.40-6.50); Neutrophils % (auto) 51.8 %; Polychromasia 1+
--- NOTE | 2024-04-30 10:39 | CT Scan Report ---
HEAD & NECK CTA HISTORY: syncope, hypoxia PE TECHNIQUE: Multiaxial CT images of the head were performed the intravenous administration of contrast to evaluate the major cerebral vessels. Multiaxial CT images of the neck were also performed followi ng the intravenous administration of contrast to evaluate the major cervical vessels. 3D/MIP images w ere also obtained. Sagittal and coronal reformats were reviewed. A dose lowering technique was utiliz ed adhering to the principles of ALARA. COMPARISON: None. FINDINGS: There is no mass, hematoma, midline shift, or acute infarct. Visualized intracranial internal carotid arteries, distal vertebral arteries, and basilar artery are widely patent. There is no significant s tenosis, occlusion, or aneurysm seen within the bilateral ACAs, MCAs, or left BANK REPRESENTATIVE. Severely hypoplast ic distal right vertebral artery. Moderate to severe focal narrowing within the proximal right BANK REPRESENTATIVE be st seen on image 59. The mid to distal right BANK REPRESENTATIVE is widely patent.. The major dural venous sinuses ar e patent. The aortic arch and proximal great vessels are widely patent. There is no significant stenosis, occ lusion, or dissection identified within the bilateral common carotid, internal carotid, or vertebral arteries. Hypoplastic right vertebral artery. Mild calcified plaque within the right carotid bifurcat ion. IMPRESSION: 1. Moderate to severe focal narrowing within the proximal right BANK REPRESENTATIVE. The bilateral ACAs and MCAs are widely patent. 2. No significant stenosis, occlusion, or dissection identified within the carotid or vertebral arter ies. 3. Hypoplastic right vertebral artery. Electronically signed by: Gurpreet Wiggins M.D. 04/30/2024 10:37 AM
--- NOTE | 2024-04-30 10:39 | CT Scan Report ---
HEAD & NECK CTA HISTORY: syncope, hypoxia PE TECHNIQUE: Multiaxial CT images of the head were performed the intravenous administration of contrast to evaluate the major cerebral vessels. Multiaxial CT images of the neck were also performed followi ng the intravenous administration of contrast to evaluate the major cervical vessels. 3D/MIP images w ere also obtained. Sagittal and coronal reformats were reviewed. A dose lowering technique was utiliz ed adhering to the principles of ALARA. COMPARISON: None. FINDINGS: There is no mass, hematoma, midline shift, or acute infarct. Visualized intracranial internal carotid arteries, distal vertebral arteries, and basilar artery are widely patent. There is no significant s tenosis, occlusion, or aneurysm seen within the bilateral ACAs, MCAs, or left RV SERVICE TECHNICIAN. Severely hypoplast ic distal right vertebral artery. Moderate to severe focal narrowing within the proximal right RV SERVICE TECHNICIAN be st seen on image 59. The mid to distal right RV SERVICE TECHNICIAN is widely patent.. The major dural venous sinuses ar e patent. The aortic arch and proximal great vessels are widely patent. There is no significant stenosis, occ lusion, or dissection identified within the bilateral common carotid, internal carotid, or vertebral arteries. Hypoplastic right vertebral artery. Mild calcified plaque within the right carotid bifurcat ion. IMPRESSION: 1. Moderate to severe focal narrowing within the proximal right RV SERVICE TECHNICIAN. The bilateral ACAs and MCAs are widely patent. 2. No significant stenosis, occlusion, or dissection identified within the carotid or vertebral arter ies. 3. Hypoplastic right vertebral artery. Electronically signed by: Gurpreet Wiggins M.D. 04/30/2024 10:37 AM
[2024-04-30 11:14] LABS: Appearance Urine Turbid (Clear); Bacteria Urine Automated 2+ (None Seen); Bilirubin Urine Negative (Negative); Blood Urine 1+ (Negative); Cast Urine Automated 0-2 /lpf (0-2); Color Urine Yellow; Epithelial Cell Urine Auto >20 /hpf (0-2); Glucose Urine UA Negative (Negative); Ketones Urine Negative (Negative); Leukocyte Esterase Urine 3+ (Negative); Nitrite Urine Negative (Negative); Protein Urine 1+ (Negative); Specific Gravity Urine 1.022 (1.000-1.030); Urobilinogen Urine Negative (Negative); WBC Urine Automated >50 /hpf (0-5); pH Urine 5.5 (4.5-7.5)
--- NOTE | 2024-04-30 11:57 | CT Scan Report ---
CHEST CTA for PULMONARY ARTERIES CT DOSE: HISTORY: syncope, hypoxia PE TECHNIQUE: Multiaxial CT images of the chest were performed following the intravenous administration of contrast to evaluate the pulmonary arteries. 3D/Maximal intensity projection images were also obta ined. Sagittal and coronal reformations were also reviewed. A dose lowering technique was utilized a dhering to the principles of ALARA. COMPARISON STUDY: Chest CT 02/26/2018. FINDINGS: Multiple acute to subacute bilateral anterior/lateral rib fractures. There is an acute to s ubacute nondisplaced right T10 transverse process fracture. Focal indentation at the anterior cortex of the mid sternum suggestive of an old, healed fracture. There is an acute to subacute there is an a cute to subacute compression/burst fracture at T10 primarily involving the superior endplate. This de monstrates mild to moderate loss of height centrally. There is involvement of the posterior cortex wi th 2 mm of retropulsion. No significant central canal narrowing. Mild elevation of the left hemidiaph ragm. The visualized liver and spleen are unremarkable. Normal esophagus. The heart is mildly enlarge d. No pleural or pericardial effusions. No no mediastinal hematoma or lymphadenopathy. Suboptimal jillian luation of the lower lobe subsegmental pulmonary arteries due to the motion artifact. However, no def inite filling defects within the pulmonary arteries to suggest a pulmonary embolus. No pneumothorax. The central airways are patent. The upper lung zones are clear. Patchy densities within the lung base s. This may represent atelectasis or a pneumonia. IMPRESSION: 1. Multiple acute to subacute bilateral anterior/lateral rib fractures. No pneumothorax. 2. There is an acute to subacute compression/burst fracture at T10 with 2 mm of retropulsion. No asso ciated central canal narrowing. There is also nondisplaced right T10 transverse process fracture. 3. No evidence for pulmonary embolus with limitations as described above. 4. Patchy bibasilar densities are nonspecific and could represent atelectasis or a pneumonia. ACT 112: Negative or not required by law. Electronically signed by: Gurpreet Wiggins M.D. 04/30/2024 11:56 AM
--- NOTE | 2024-04-30 12:12 | Electrocardiogram Report ---
Test Reason : Blood Pressure : */* mmHG Vent. Rate : 95 BPM Atrial Rate : 95 BPM P-R Int : 144 ms QRS Dur : 86 ms QT Int : 358 ms P-R-T Axes : 25 45 6 degrees QTcB Int : 449 ms Normal sinus rhythm Nondiagnostic inferior Q waves Abnormal ECG When compared with ECG of 16-Nov-2023 13:44, No significant change Confirmed by Rodrick Mathis ([id number]) on 04/30/2024 12:11:28 PM Referred By: REFERRED SELF Confirmed By: Rodrick Mathis
[2024-04-30] MEDS: ERTAPENEM SODIUM 10 ML IV STA (12:53)
--- NOTE | 2024-04-30 13:02 | History & Physical Report ---
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 Per [facility] Staff: She was fine first thing this morning. They had got her up to go to breakfast and when they got her up to the table she had a loud scream. She did not yet start breakfast and she did not take any meds. After the loud scream she got very stiff and started shaking. Staff at the facility noticed she was having, "grand mal seizure," with arms and legs shaking. This lasted 2-3 minutes. While this was happening she had green fluid coming out of her mouth and she became unresponsive. Staff took her out to the living room and laid her on the floor. They noticed that she stopped breathing and didn't have a pulse, became very stiff and turned a different color. Staff started CPR for a pproximately 5-10 minutes and once EMS arrived they noticed she was breathing again and they turned her on her side because she had fluid coming out of her mouth. Staff report up until today she has been in her normal state of health. Her bowels/bladder moving normally and eating okay. She has not had any recent falls. Witnessed Seizure like activity Unresponsive episode elevated troponin admit to PCU obtain EEG and neuro consult empirically start on IV keppra 500mg q12hr seizure precautions/aspiration precautions Elevated troponin reported out of hospital cardiac arrest s/p CPR for 5-10 minutes, pt was breathing but hypoxic upon ems arrival pt is in normal state now, no ST changes on ecg cycle trop and obtain echocardiogram Multiple rib fractures CTA reveals multiple acute to subacute anterior/lateral rib fractures, no pneumothorax possibly from CPR no complaint of pain, given pt inability to communicate will schedule APAP for now Acute to subacute compression/burst fx at T10 pt is w/o complaint of pain schedule tylenol consult orthospine Possible Aspiration Pneumonia -it was reported pt had green vomit coming out of mouth at time of unresponsiveness/seizure UTI - previous hx of ESBL continue IV ertapenem for now, lactobacillus no indication for speech therapy as known aspiration and last seen by ST 04/03. 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 The bilateral ACAs and MCAs are widely patent. will defer recs to neuro lipid panel in a.m. CKD IV -cr stable, 1.59, monitor, avoid nephrotoxic agents, will give gentle IVF in setting of contrasted imaging H/o chronic ITP Stable history, last seen by heme onc in 2016 No signs of bleeding Platelets 114 today Repeat CBC in AM Alzheimer's dementia Stable, at baseline (mostly nonverbal) ambulates with wheelchair at baseline Continue quetiapine BID, risperidone TID DVT Ppx: warfarin on hold due to supratherapeutic INR, monitor INR Code status: DNR/DNI - confirmed with (POA/spouse Prasanth ([phone]) PCP: Chris Dispo: admitted to med/surg A total of 76 minutes was spent coordinating, documenting, and providing care for this patient excluding time spent in the performance of separately billed services. This included personally viewing all current laboratories and imaging studies, medication reconciliation, outpatient chart review, and discussion with specialists. 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 Hx was obtained from ED provider who spoke to and pre hospital personnel and [facility] staff. [facility] reported she was fine first thing this morning. They had got her up to go to breakfast and when they got her up to the table she had a loud scream. She did not yet start breakfast and she did not take any meds. After the loud scream she got very stiff and started shaking. Staff at the facility noticed she was having, "grand mal seizure," with arms and legs shaking. This lasted 2-3 minutes. While this was happening she had green fluid coming out of her mouth and she became unresponsive. Staff took her out to the living room and laid her on the floor. They noticed that she stopped breathing, became very stiff and turned a differe nt color. Staff started CPR for approximately 5-10 minutes and once EMS arrived they noticed she was breathing again and they turned her on her side because she had fluid coming out of her mouth. Staff report up until today she has been in her normal state of health. Her bowels/bladder moving normally and eating okay. She has not had any recent falls. In ED she was hemodynamically stable; however requiring 6L of oxygen at this time. She received 1g of IV ertapenem and fluids in ED. Allergies Allergy/AdvReac Type Severity Reaction Status Date / Time No Known Allergies Allergy Unverified 11/16/23 15:49 Home Medications Medication Instructions Recorded Confirmed Type latanoprost 0.005 % eye drops 1 drp OPB .DAILY@1900 11/16/23 04/30/24 History quetiapine 25 mg tablet 25 mg PO .DAILY@0800,1700 11/16/23 04/30/24 History risperidone 0.5 mg tablet 0.5 mg PO .@0800,1200,1700 11/16/23 04/30/24 History furosemide 40 mg tablet 40 mg PO UD 02/11/24 04/30/24 History ibuprofen 600 mg tablet 600 mg PO .DAILY@0800 04/30/24 04/30/24 History ibuprofen 600 mg tablet 600 mg PO HS PRN swelling and pain 04/30/24 04/30/24 History warfarin 2.5 mg tablet 2.5 mg PO DAILY 04/30/24 04/30/24 History Past Med/Surg History Problem List (Updated 04/30/24 @ 13:20 by Lay East PA-C) Aspiration pneumonia Multiple rib fractures Unresponsive episode Seizure-like activity UTI (urinary tract infection) Supratherapeutic INR (Acute) Hematoma of left forearm (Acute) Internal jugular vein thrombosis (Acute) Medical History Late onset Alzheimer's dementia without behavioral disturbance CKD (chronic kidney disease), stage IV Chronic ITP (idiopathic thrombocytopenia) Osteoarthritis Osteoporosis SNHL (sensorineural hearing loss) Surgical History Hx of esophagogastroduodenoscopy Status post total hip replacement, right S/P hip replacement Family History Aunt Diabetes Social History Smoking Status: Unknown if ever smoked Preferred Language: Japanese Communication Ability: Unable Ribbon Tier Required: No Beliefs That Will Affect Care: None marital status: Current Living Situation: Detention Feels Safe at Home: Yes Assistive Devices: Wheelchair Review of Systems Review of Systems: All systems reviewed & are unremarkable except as noted in HPI & below Physical Exam Physical Exam: please refer to Dr. Morgan addendum for physical exam findings. Results & Data Results & Data Vital Signs (Past 12 Hours) Vital Signs Temp Pulse Pulse Resp BP BP Pulse Ox 04/30/24 12:29 80 14 134/83 96 04/30/24 11:00 79 18 136/81 100 04/30/24 09:57 83 04/30/24 09:50 04/30/24 09:50 36.5 C 79 22 130/67 100 04/30/24 09:41 97 04/30/24 09:35 85 18 138/76 97 O2 Del Method O2 Flow Rate 04/30/24 12:29 Oxymask 6 04/30/24 11:00 Non-rebreather 10 04/30/24 09:57 04/30/24 09:50 Room Air 04/30/24 09:50 Non-rebreather 6 04/30/24 09:41 Non-rebreather 15 04/30/24 09:35 Non-rebreather 15 Laboratory Results I have independently reviewed and interpreted patient's admitting labs including CBC, CMP, PT/INR, mag , ck, and troponin. UA also reviewed Diagnostic Findings Chest X-Ray 04/30/24 09:41 XR chest 1V portable HISTORY: syncope COMPARISON: Chest 02/11/2024. FINDINGS: Rotated study. No pneumothorax. The cardiac silhouette is normal in size. The right lung is clear. Left basilar linear densities favor subsegmental atelectasis or scarring. This is similar to the prior study. Mild interstitial thickening which is likely chronic. No evidence for pulmonary edema. No acute fractures. IMPRESSION: 1. No acute process within the chest. 2. Left basilar linear densities favor subsegmental atelectasis. This is similar to the prior study ACT 112: Negative or not required by law. Electronically signed by: Gurpreet Wiggins M.D. 04/30/2024 9:57 AM Chest CTA 04/30/24 10:00 CHEST CTA for PULMONARY ARTERIES CT DOSE: HISTORY: syncope, hypoxia PE TECHNIQUE: Multiaxial CT images of the chest were performed following the intravenous administration of contrast to evaluate the pulmonary arteries. 3D/Maximal intensity projection images were also obtained. Sagittal and coronal reformations were also reviewed. A dose lowering technique was utilized adhering to the principles of ALARA. COMPARISON STUDY: Chest CT 02/26/2018. FINDINGS: Multiple acute to subacute bilateral anterior/lateral rib fractures. There is an acute to subacute nondisplaced right T10 transverse process fracture. Focal indentation at the anterior cortex of the mid sternum suggestive of an old, healed fracture. There is an acute to subacute there is an acute to subacute compression/burst fracture at T10 primarily involving the superior endplate. This demonstrates mild to moderate loss of height centrally. There is involvement of the posterior cortex with 2 mm of retropulsion. No significant central canal narrowing. Mild elevation of the left hemidiaphragm. The visualized liver and spleen are unremarkable. Normal esophagus. The heart is mildly enlarged. No pleural or pericardial effusions. No no mediastinal hematoma or lymphadenopathy. Suboptimal evaluation of the lower lobe subsegmental pulmonary arteries due to the motion artifact. However, no definite filling defects within the pulmonary arteries to suggest a pulmonary embolus. No pneumothorax. The central airways are patent. The upper lung zones are clear. Patchy densities within the lung bases. This may represent atelectasis or a pneumonia. IMPRESSION: 1. Multiple acute to subacute bilateral anterior/lateral rib fractures. No pneumothorax. 2. There is an acute to subacute compression/burst fracture at T10 with 2 mm of retropulsion. No associated central canal narrowing. There is also nondisplaced right T10 transverse process fracture. 3. No evidence for pulmonary embolus with limitations as described above. 4. Patchy bibasilar densities are nonspecific and could represent atelectasis or a pneumonia. ACT 112: Negative or not required by law. Electronically signed by: Gurpreet Wiggins M.D. 04/30/2024 11:[address] 04/30/24 10:[address] DOSE: HISTORY: syncope TECHNIQUE: Multiaxial CT images of the head were performed without the use of intravenous contrast. Automated exposure control was utilized for this study. A dose lowering technique was utilized adhering to the principles of ALARA. Comparison: None. Findings: The paranasal sinuses and mastoid air cells are clear. The calvarium and skull base are intact. There is no mass, hematoma, midline shift, acute infarct. White matter hypodensity is nonspecific but suggestive of microvascular ischemic change. The ventricles and sulci demonstrate mild age-related involutional changes. Impression: No acute intracranial abnormality. Atrophy and microvascular ischemic changes. ACT 112: Negative or not required by law. Electronically signed by: Gurpreet Wiggins M.D. 04/30/2024 10:29 AM Head CTA 04/30/24 10:00 HEAD & NECK CTA HISTORY: syncope, hypoxia PE TECHNIQUE: Multiaxial CT images of the head were performed the intravenous administration of contrast to evaluate the major cerebral vessels. Multiaxial CT images of the neck were also performed following the intravenous administration of contrast to evaluate the major cervical vessels. 3D/MIP images were also obtained. Sagittal and coronal reformats were reviewed. A dose lowering technique was utilized adhering to the principles of ALARA. COMPARISON: None. FINDINGS: There is no mass, hematoma, midline shift, or acute infarct. Visualized intracranial internal carotid arteries, distal vertebral arteries, and basilar artery are widely patent. There is no significant stenosis, occlusion, or aneurysm seen within the bilateral ACAs, MCAs, or left STEREOTYPER APPRENTICE. Severely hypoplastic distal right vertebral artery. Moderate to severe focal narrowing within the proximal right STEREOTYPER APPRENTICE best seen on image 59. The mid to distal right STEREOTYPER APPRENTICE is widely patent.. The major dural venous sinuses are patent. The aortic arch and proximal great vessels are widely patent. There is no significant stenosis, occlusion, or dissection identified within the bilateral common carotid, internal carotid, or vertebral arteries. Hypoplastic right vertebral artery. Mild calcified plaque within the right carotid bifurcation. IMPRESSION: 1. Moderate to severe focal narrowing within the proximal right STEREOTYPER APPRENTICE. The bilateral ACAs and MCAs are widely patent. 2. No significant stenosis, occlusion, or dissection identified within the carotid or vertebral arteries. 3. Hypoplastic right vertebral artery. Electronically signed by: Gurpreet Wiggins M.D. 04/30/2024 10:37 AM Neck CTA 04/30/24 10:00 HEAD & NECK CTA HISTORY: syncope, hypoxia PE TECHNIQUE: Multiaxial CT images of the head were performed the intravenous administration of contrast to evaluate the major cerebral vessels. Multiaxial CT images of the neck were also performed following the intravenous administration of contrast to evaluate the major cervical vessels. 3D/MIP images were also obtained. Sagittal and coronal reformats were reviewed. A dose lowering technique was utilized adhering to the principles of ALARA. COMPARISON: None. FINDINGS: There is no mass, hematoma, midline shift, or acute infarct. Visualized intracranial internal carotid arteries, distal vertebral arteries, and basilar artery are widely patent. There is no significant stenosis, occlusion, or ane urysm seen within the bilateral ACAs, MCAs, or left STEREOTYPER APPRENTICE. Severely hypoplastic distal right vertebral artery. Moderate to severe focal narrowing within the proximal right STEREOTYPER APPRENTICE best seen on image 59. The mid to distal right STEREOTYPER APPRENTICE is widely patent.. The major dural venous sinuses are patent. The aortic arch and proximal great vessels are widely patent. There is no significant stenosis, occlusion, or dissection identified within the bilateral common carotid, internal carotid, or vertebral arteries. Hypoplastic right vertebral artery. Mild calcified plaque within the right carotid bifurcation. IMPRESSION: 1. Moderate to severe focal narrowing within the proximal right STEREOTYPER APPRENTICE. The bilateral ACAs and MCAs are widely patent. 2. No significant stenosis, occlusion, or dissection identified within the carotid or vertebral arteries. 3. Hypoplastic right vertebral artery. Electronically signed by: Gurpreet Wiggins M.D. 04/30/2024 10:37 AM Medications Administered Medication List Discontinued Medications Sodium Chloride (Nss) 1,000 mls @ 999 mls/hr IV .Q1H1M ONE Stop: 04/30/24 10:42 Last Infusion: 04/30/24 11:57 Dose: Infused Documented By: Admin: 04/30/24 10:21 Dose: 999 mls/hr Documented By: BK Ertapenem (Invanz) 10 mls @ 2 mls/min IV NOW STA Stop: 04/30/24 12:13 Last Admin: 04/30/24 12:53 Dose: 2 mls/min Documented By: CEF Ioversol (Optiray 320 125ml) 119 ml IV ONCE ONE Stop: 04/30/24 10:12 Last Admin: 04/30/24 10:11 Dose: 119 ml Documented By: EVARISTO ECG Additional Comments: I have independently reviewed and interpreted patient's admitting EKG which revealed: NSR, 95bpm [id number] COVID-19 Results Results COVID-19 Adm Lab Results: RBC 4.27 M/uL (4.20-5.40) 04/30/24 WBC 10.30 K/ul (4.8-10.8) 04/30/24 Hgb 11.2 g/dl (12.0-16.0) L 04/30/24 Hct 36.2 % (37.0-47.0) L 04/30/24 Plt Count 116 K/uL (130-400) L 04/30/24 Neutrophils (%) (Auto) 51.8 % 04/30/24 Lymphocytes (%) (Auto) 29.0 % 04/30/24 Monocytes # (Auto) 0.73 K/uL (0.11-0.59) H 04/30/24 Eosinophils # (Auto) 0.59 K/uL (0.00-0.50) H 04/30/24 Immature Granulocyte % (Auto) 5.6 % 04/30/24 Neutrophils # (Auto) 5.33 K/uL (1.40-6.50) 04/30/24 Lymphocytes # (Auto) 2.99 K/uL (1.20-3.40) 04/30/24 Monocytes # (Auto) 0.73 K/uL (0.11-0.59) H 04/30/24 Eosinophils # (Auto) 0.59 K/uL (0.00-0.50) H 04/30/24 Basophils # (Auto) 0.08 K/uL (0.00-0.20) 04/30/24 Immature Granulocyte # (Auto) 0.58 K/uL (0.01-0.20) H 04/30 Polychromasia 1+ 04/30/24 Na 141 mmol/L (136-145) 04/30/24 K 3.7 mmol/L (3.5-5.1) 04/30/24 Cl 104 mmol/L (98-107) 04/30/24 CO2 25 mmol/L (21-32) 04/30/24 Anion Gap 12 (3-11) H 04/30/24 BUN 25 mg/dl (6-23) H 04/30/24 Creatinine 1.59 mg/dl (0.6-1.2) H 04/30/24 BUN/Creatinine Ratio 15.7 (10-20) 04/30/24 Glucose Level 147 mg/dl (70-99(Fasting)) H 04/30/24 Ca 8.9 mg/dl (8.6-10.3) 04/30/24 Phosphorus Level 3.3 mg/dl (2.5-4.9) 04/30/24 Total Bilirubin 0.7 mg/dl (0.2-1.0) 04/30/24 AST/SGOT 33 U/L (13-39) 04/30/24 ALT/SGPT 28 U/L (7-52) 04/30/24 Alkaline Phosphatase 64 U/L (34-104) 04/30/24 Total Protein 5.8 gm/dl (6.0-8.3) L 04/30/24 Albumin 3.5 gm/dl (3.4-5.0) 04/30/24 Globulin 2.3 gm/dl (2.5-4.0) L 04/30/24 Albumin/Globulin Ratio 1.5 (0.9-2) 04/30/24 Total CK 41 U/L (26-192) 04/30/24 INR 3.1 (0.9-1.1) H 04/30/24 Chest X-Ray 04/30/24 Code Status & VTE Plan Code Status DNR/DNI this was discussed with via the phone VTE Prophylaxis Plan VTE Prophylaxis will be ordered: No Reason for no VTE drug order: Treatment not indicated Supervising Physician Co-Signing Physician Notes 84 yo F w/ PMH of advanced dementia who is mostly nonverbal, CKD-3, Osteoporosis, chronic ITP, left ant jugular thrombus presents from [facility] because she was noted to have "grand mal seizure" by the staff f/b no pulse/no breathing requiring CPR. Per staff at [facility], pt was sitting up in chair ,ready to eat her breakfast/hasn't eaten anything yet, she was noted to be screaming, found in "grand mal seizure". The staff reports she was stiff, whole body was shaking, has "stuff"/"froth" coming out of mouth. She was moved to another room and put in chair first and since pulse/breathing was not noted, she was laid down on the floor. CPR was started, EMT called. Seizure like activity per them lasted around 1-2 min, at the end of which they noted no pulse/no breathing/change in color of the skin/frothing at mouth. CPR was done for about 5-10 min and EMT arrived, she was noted to have breathing and pulse. No further CPR needed per staff. Staff reports she hasn't had fall in the last month, no febrile illness/no acute changes in bowel and appetite habits. Pt takes warfarin 2.5 mg daily. Pt is non verbal, no hx was able to obtain. Pt didn't appear to be in distress, was on 6L O2 via OM. Pt's was also given a phone call who stated he doesn't know about the scenario she was brought in in-detail and asked us to call [facility]. He reiterated that pt is dnr/dni and stated he will bring papers of her living will to the hospital during her next visit. Active problems: Concern for seizure: CTA Head and neck reviewed. came in w/ seizure like episode. will do keppra 500 mg iv bid, neuro consult, eeg. Awaiting recs. fall precaution. s/p CPR: trend troponin, get echo, closely monitor in tele. EKG w/ NSR at 95 bpm. if uptrending trop or abn echo, consider cardio. concern for aspiration: s/p seizure like activity, speech has evaled recently. will c/w ertapenem, wean down O2 as josé. Rib fracture and supra INR: INR 3.1, Chest imaging w/ rib fracture (acute to subacute). Hold coumadin (takes 2.5 mg daily). follow pt/inr. incentive spirometer. T10 fracture: noted CTA chest, no tenderness elicited. pt non verbal and hence no subjective opinion of the patient was able. Will consult orthospine, consult PT/OT. Concern for UTI: UA reviewed, atb as above, f/u UCx and Bl Cx. On exam: General: Sitting comfortably in bed, not in distress, on 6L via OM, non verbal HEENT: NEEMA, MMM Chest: Fair breath sounds bilaterally, no wheezes or crackles CVS: Regular rate and rhythm, normal heart sounds, no murmur Abdomen: Soft, non tender, not distended, normal bowel sounds Neuro: Awake, alert, minimally/non verbal due to dementia MSK/Skin: no edema noted. Time spent: 30 min on top of MARIUSZ's time. I have seen and examined the patient and have discussed the case with the provider above. I agree with the assessment and plan as stated.
[2024-04-30] MEDS ORDERED: POLYETHYLENE (MIRALAX) 17 GM PACK PO PRN (13:48)
[2024-04-30] MEDS ORDERED: ALUMINUM/MAGNESIUM SUSP 30 ML UDC PO PRN (13:48)
[2024-04-30] MEDS ORDERED: ONDANSETRON INJ 2 MG/ML 2 ML VIAL IV PRN (13:48)
[2024-04-30] MEDS: SODIUM CHLORIDE 0.9% 1,000 ML IV SCH (14:34)
[2024-04-30] MEDS: risperiDONE 0.5 MG TABLET PO SCH (14:35)
[2024-04-30] MEDS: ACETAMINOPHEN 500 MG TAB PO SCH (14:35)
[2024-04-30] MEDS: levETIRAcetam 500 MG/5 ML VIAL IV STA (14:37)
--- NOTE | 2024-04-30 15:14 | Neurology Consultation ---
Date of Consultation April 30, 2024 Assessment & Plan (1) Unresponsive episode: Witnessed generalized seizure Recommend continue to monitor for s/s of infection Agree with continued Keppra Recommend obtain EEG Provide seizure precautions Utilize benzodiazepines emergently for any breakthrough clinical seizure like activity Recommend obtain MRI brain with and without contrast Echocardiogram as part of complete workup Continue frequent neurological assessments Obtain stat CT brain without contrast for any acute neurological decline Continue to monitor/control blood pressure & blood glucose Continue to monitor telemetry closely Recommend ZioPatch at DC if no evidence of arrhythmia during inpatient monit oring Continue to monitor renal and hepatic function, keep euvolemic Metabolic workup should include hgbA1c, fasting lipids, homocysteine, TSH, D Dimer, RPR, urinalysis Ok from neurology perspective for VTE prophylaxis PT/OT/SLT to eval and treat Telehealth Consultation Telehealth Information Telehealth Information: I performed this visit using a real-time telehealth connection between my location and the patients location ([facility]). After connecting through interactive tele-video, patient was identified by name and date of and/or wristband check.Patient (or authorized healthcare special service representative) was informed that this was a telemedicine visit and it was being conducted confidentially over secure lines. My office door was closed and no one else was present in the room with me.Patient (or authorized healthcare special service representative) provided consent to proceed with the visit, expressed an understanding of privacy and security of the telemedicine visit, and gave permission to have a hospital special service representative in the room in order to assist with the visit and to conduct portions of the visit, as needed. I informed the patient (or authorized healthcare special service representative) that I reviewed their record and presented the opportunity for them to ask any questions regarding the visit today. The patient agreed to participate. History of Present Illness Reason for Consultation: Seizure Attending Physician: Edi Morgan MD History of Present Illness 84yo female with reported hx of dementia residing at local facility was reported to have demonstrated an episode of seizure like activity. Reportedly at her baseline this AM then staff witnessed generalized clinical seizure like activi ty. Reportedly lasted 2-3 minutes, at which time she was believed to have been pulseless prompting initiation of CPR. She is now reportedly at her baseline. She has undergone emergent stroke imaging including CT brain without contrast, personally reviewed today, revealing no overt evidence of hemorrhage. CT angiographic studies of head and neck, also personally reviewed today, reveal no overt evidence of large vessel occlusion. There is notable right CUSTOMER CARE MANAGER stenosis. I have performed televideo consultation. She is sleeping but able to be awakened. Will move all extremities spontaneously. No evidence of acute distress or discomfort. Allergies Allergy/AdvReac Type Severity Reaction Status Date / Time No Known Allergies Allergy Unverified 11/16/23 15:49 Home Medications Medication Instructions Recorded Confirmed Type latanoprost 0.005 % eye drops 1 drp OPB .DAILY@1900 11/16/23 04/30/24 History quetiapine 25 mg tablet 25 mg PO .DAILY@0800,1700 11/16/23 04/30/24 History risperidone 0.5 mg tablet 0.5 mg PO .@0800,1200,1700 11/16/23 04/30/24 History furosemide 40 mg tablet 40 mg PO UD 02/11/24 04/30/24 History ibuprofen 600 mg tablet 600 mg PO .DAILY@0800 04/30/24 04/30/24 History ibuprofen 600 mg tablet 600 mg PO HS PRN swelling and pain 04/30/24 04/30/24 History warfarin 2.5 mg tablet 2.5 mg PO DAILY 04/30/24 04/30/24 History Patient History Medical History Late onset Alzheimer's dementia without behavioral disturbance CKD (chronic kidney disease), stage IV Chronic ITP (idiopathic thrombocytopenia) Osteoarthritis Osteoporosis SNHL (sensorineural hearing loss) Surgical History Hx of esophagogastroduodenoscopy Status post total hip replacement, right S/P hip replacement Family History Aunt Diabetes Social History Smoking Status: Unknown if ever smoked Preferred Language: Italian Communication Ability: Unable [employer] General Manager Required: No Beliefs That Will Affect Care: None marital status: Current Living Situation: Long-Term Feels Safe at Home: Yes Assistive Devices: Wheelchair Physical Exam Neurological Examination: Mental Status: Awake and alert. Oriented to person, place, and time. Fluency naming repetition and comprehension appear grossly intact. Affect remains appropriate. CN testing: I: Unable to accurately assess II:Unable to accurately assess III/IV/: No evidence of gaze preference, hippus, nystagmus or roving eye movements V: Facial sensation is unable to be accurately assessed VII: Facial movements appear without evidence of asymmetry VIII: Hearing appears grossly intact to loud voice bilaterally IX/X: Palate unable to be accurately visualized XI: Shoulder shrug unable to be assessed XII: Tongue is difficult to accurately assess Motor exam: Moving all extremities spontaneously/antigravity Sensory: Unable to accurately assess Coordination: Deferred Reflexes: Deferred Gait: Deferred Results & Data Vital Signs (Past 12 Hours) Vital Signs Temp Pulse Pulse Resp BP BP Pulse Ox 04/30/24 14:58 85 04/30/24 14:19 04/30/24 13:48 36.3 C L 86 18 161/83 H 95 04/30/24 13:16 85 14 142/93 H 96 04/30/24 12:29 80 14 134/83 96 04/30/24 11:00 79 18 136/81 100 04/30/24 09:57 83 04/30/24 09:50 04/30/24 09:50 36.5 C 79 22 130/67 100 04/30/24 09:41 97 04/30/24 09:35 85 18 138/76 97 O2 Del Method O2 Flow Rate 04/30/24 14:58 04/30/24 14:19 Oxymask 5 04/30/24 13:48 Oxymask 5 04/30/24 13:16 Oxymask 4 04/30/24 12:29 Oxymask 6 04/30/24 11:00 Non-rebreather 10 04/30/24 09:57 04/30/24 09:50 Room Air 04/30/24 09:50 Non-rebreather 6 04/30/24 09:41 Non-rebreather 15 04/30/24 09:35 Non-rebreather 15 Laboratory Results Abnormal lab results 04/30/24 04/30/24 04/30/24 Range/Units 09:50 09:59 10:58 Hgb 11.2 L (12.0-16.0) g/dl POC Hgb 11.6 L (12.0-16.0) g/dl Hct 36.2 L (37.0-47.0) % POC Hct 34 L (37-47) % MCHC 30.9 L (32.0-36.0) g/dL RDW Coeff of Yajaira 14.7 H (11.5-14.5) % Plt Count 116 L (130-400) K/uL [place] # (Auto) 0.73 H (0.11-0.59) K/uL Eos # (Auto) 0.59 H (0.00-0.50) K/uL Immature Gran # (Auto) 0.58 H (0.01-0.20) K/uL PT 30.7 H (9.0-12.0) Seconds INR 3.1 H (0.9-1.1) Anion Gap 12 H (3-11) POC Anion Gap 15.0 L (16-25) mmol/L POC BUN 23 H (7-18) mg/dl BUN 25 H (6-23) mg/dl Creatinine 1.59 H (0.6-1.2) mg/dl POC Creatinine 1.6 H (0.6-1.3) mg/dl Glucose 147 H (70-99(Fasting)) mg/dl POC Glucose (other) 141 H (70-99) mg/dl Troponin I High Sens 17.0 H (0-14) pg/ml Total Protein 5.8 L (6.0-8.3) gm/dl Globulin 2.3 L (2.5-4.0) gm/dl Urine Appearance Turbid A (Clear) Urine Protein 1+ H (Negative) Urine Blood 1+ H (Negative) Ur Leukocyte Esterase 3+ H (Negative) Urine WBC (Auto) >50 H (0-5) /hpf Urine RBC (Auto) 11-20 H (0-2) /hpf U Epithel Cells (Auto) >20 H (0-2) /hpf Urine Bacteria (Auto) 2+ H (None Seen) Urine Yeast Present A (None Prsent) Diagnostic Findings Chest X-Ray 04/30/24 09:41 XR chest 1V portable HISTORY: syncope COMPARISON: Chest 02/11/2024. FINDINGS: Rotated study. No pneumothorax. The cardiac silhouette is normal in size. The right lung is clear. Left basilar linear densities favor subsegmental atelectasis or scarring. This is similar to the prior study. Mild interstitial thickening which is likely chronic. No evidence for pulmonary edema. No acute fractures. IMPRESSION: 1. No acute process within the chest. 2. Left basilar linear densities favor subsegmental atelectasis. This is similar to the prior study ACT 112: Negative or not required by law. Electronically signed by: Gurpreet Wiggins M.D. 04/30/2024 9:57 AM Chest CTA 04/30/24 10:00 CHEST CTA for PULMONARY ARTERIES CT DOSE: HISTORY: syncope, hypoxia PE TECHNIQUE: Multiaxial CT images of the chest were performed following the intravenous administration of contrast to evaluate the pulmonary arteries. 3D/Maximal intensity projection images were also obtained. Sagittal and coronal reformations were also reviewed. A dose lowering technique was utilized adhering to the principles of ALARA. COMPARISON STUDY: Chest CT 02/26/2018. FINDINGS: Multiple acute to subacute bilateral anterior/lateral rib fractures. There is an acute to subacute nondisplaced right T10 transverse process fracture. Focal indentation at the anterior cortex of the mid sternum suggestive of an old, healed fracture. There is an acute to subacute there is an acute to subacute compression/burst fracture at T10 primarily involving the superior endplate. This demonstrates mild to moderate loss of height centrally. There is involvement of the posterior cortex with 2 mm of retropulsion. No significant central canal narrowing. Mild elevation of the left hemidiaphragm. The visualized liver and spleen are unremarkable. Normal esophagus. The heart is mildly enlarged. No pleural or pericardial effusions. No no mediastinal hematoma or lymphadenopathy. Suboptimal evaluation of the lower lobe subsegmental pulmonary arteries due to the motion artifact. However, no definite filling defects within the pulmonary arteries to suggest a pulmonary embolus. No pneumothorax. The central airways are patent. The upper lung zones are clear. Patchy densities within the lung bases. This may represent atelectasis or a pneumonia. IMPRESSION: 1. Multiple acute to subacute bilateral anterior/lateral rib fractures. No pneumothorax. 2. There is an acute to subacute compression/burst fracture at T10 with 2 mm of retropulsion. No associated central canal narrowing. There is also nondisplaced right T10 transverse process fracture. 3. No evidence for pulmonary embolus with limitations as described above. 4. Patchy bibasilar densities are nonspecific and could represent atelectasis or a pneumonia. ACT 112: Negative or not required by law. Electronically signed by: Gurpreet Wiggins M.D. 04/30/2024 11:[address] 04/30/24 10:[address] DOSE: HISTORY: syncope TECHNIQUE: Multiaxial CT images of the head were performed without the use of intravenous contrast. Automated exposure control was utilized for this study. A dose lowering technique was utilized adhering to the principles of ALARA. Comparison: None. Findings: The paranasal sinuses and mastoid air cells are clear. The calvarium and skull base are intact. There is no mass, hematoma, midline shift, acute infarct. White matter hypodensity is nonspecific but suggestive of microvascular ischemic change. The ventricles and sulci demonstrate mild age-related involutional changes. Impression: No acute intracranial abnormality. Atrophy and microvascular ischemic changes. ACT 112: Negative or not required by law. Electronically signed by: Gurpreet Wiggins M.D. 04/30/2024 10:29 AM Head CTA 04/30/24 10:00 HEAD & NECK CTA HISTORY: syncope, hypoxia PE TECHNIQUE: Multiaxial CT images of the head were performed the intravenous a dministration of contrast to evaluate the major cerebral vessels. Multiaxial CT images of the neck were also performed following the intravenous administration of contrast to evaluate the major cervical vessels. 3D/MIP images were also obtained. Sagittal and coronal reformats were reviewed. A dose lowering technique was utilized adhering to the principles of ALARA. COMPARISON: None. FINDINGS: There is no mass, hematoma, midline shift, or acute infarct. Visualized intracranial internal carotid arteries, distal vertebral arteries, and basilar artery are widely patent. There is no significant stenosis, occlusion, or aneurysm seen within the bilateral ACAs, MCAs, or left CUSTOMER CARE MANAGER. Severely hypoplastic distal right vertebral artery. Moderate to severe focal narrowing within the proximal right CUSTOMER CARE MANAGER best seen on image 59. The mid to distal right CUSTOMER CARE MANAGER is widely patent.. The major dural venous sinuses are patent. The aortic arch and proximal great vessels are widely patent. There is no si gnificant stenosis, occlusion, or dissection identified within the bilateral common carotid, internal carotid, or vertebral arteries. Hypoplastic right vertebral artery. Mild calcified plaque within the right carotid bifurcation. IMPRESSION: 1. Moderate to severe focal narrowing within the proximal right CUSTOMER CARE MANAGER. The bilateral ACAs and MCAs are widely patent. 2. No significant stenosis, occlusion, or dissection identified within the carotid or vertebral arteries. 3. Hypoplastic right vertebral artery. Electronically signed by: Gurpreet Wiggins M.D. 04/30/2024 10:37 AM Neck CTA 04/30/24 10:00 HEAD & NECK CTA HISTORY: syncope, hypoxia PE TECHNIQUE: Multiaxial CT images of the head were performed the intravenous administration of contrast to evaluate the major cerebral vessels. Multiaxial CT images of the neck were also performed following the intravenous administration of contrast to evaluate the major cervical vessels. 3D/MIP images were also obtained. Sagittal and coronal reformats were reviewed. A dose lowering technique was utilized adhering to the principles of ALARA. COMPARISON: None. FINDINGS: There is no mass, hematoma, midline shift, or acute infarct. Visualized intracranial internal carotid arteries, distal vertebral arteries, and basilar artery are widely patent. There is no significant stenosis, occlusion, or aneury sm seen within the bilateral ACAs, MCAs, or left CUSTOMER CARE MANAGER. Severely hypoplastic distal right vertebral artery. Moderate to severe focal narrowing within the proximal right CUSTOMER CARE MANAGER best seen on image 59. The mid to distal right CUSTOMER CARE MANAGER is widely patent.. The major dural venous sinuses are patent. The aortic arch and proximal great vessels are widely patent. There is no significant stenosis, occlusion, or dissection identified within the bilateral common carotid, internal carotid, or vertebral arteries. Hypoplastic right vertebral artery. Mild calcified plaque within the right carotid bifurcation. IMPRESSION: 1. Moderate to severe focal narrowing within the proximal right CUSTOMER CARE MANAGER. The bilateral ACAs and MCAs are widely patent. 2. No significant stenosis, occlusion, or dissection identified within the carotid or vertebral arteries. 3. Hypoplastic right vertebral artery. Electronically signed by: Gurpreet Wiggins M.D. 04/30/2024 10:37 AM Medications Administered Home Medications Medication Instructions Recorded Confirmed Last Taken latanoprost 0.005 % eye drops 1 drp OPB .DAILY@1900 11/16/23 04/30/24 Unknown quetiapine 25 mg tablet 25 mg PO .DAILY@0800,1700 11/16/23 04/30/24 03/30/24 risperidone 0.5 mg tablet 0.5 mg PO .@0800,1200,1700 11/16/23 04/30/24 03/30/24 furosemide 40 mg tablet 40 mg PO UD 02/11/24 04/30/24 Unknown ibuprofen 600 mg tablet 600 mg PO .DAILY@0800 04/30/24 04/30/24 Unknown ibuprofen 600 mg tablet 600 mg PO HS PRN swelling and pain 04/30/24 04/30/24 Unknown warfarin 2.5 mg tablet 2.5 mg PO DAILY 04/30/24 04/30/24 Unknown Active Medications Generic Name Dose Route Start Last Admin Trade Name Freq PRN Reason Stop Dose Admin Acetaminophen 500 mg 04/30/24 13:48 04/30/24 14:35 Acetaminophen 500 Mg Tab PO 05/30/24 13:47 500 mg Q6H SIOBHAN Administration Sodium Chloride 1,000 mls @ 80 mls/hr 04/30/24 13:48 04/30/24 14:34 Nss IV 05/01/24 02:17 80 mls/hr .[id number] SIOBHAN Administration Risperidone 0.5 mg 04/30/24 13:48 04/30/24 14:35 Risperidone 0.5 Mg Tablet PO 05/30/24 13:47 0.5 mg 0800,1200,1700 SIOBHAN Administration
[2024-04-30] MEDS: QUEtiapine FUMARATE 25 MG TABLET PO SCH (16:46)
[2024-04-30 19:17] LABS: Appearance Urine Clear (Clear); Bacteria Urine Automated None Seen (None Seen); Bilirubin Urine Negative (Negative); Blood Urine 2+ (Negative); Cast Urine Automated 0-2 /lpf (0-2); Color Urine Yellow; Epithelial Cell Urine Auto 0-2 /hpf (0-2); Glucose Urine UA Negative (Negative); Ketones Urine Negative (Negative); Leukocyte Esterase Urine 1+ (Negative); Nitrite Urine Negative (Negative); Protein Urine 1+ (Negative); RBC Urine Automated >20 /hpf (0-2); Specific Gravity Urine > 1.045 (1.000-1.030); Urobilinogen Urine Negative (Negative); WBC Urine Automated >50 /hpf (0-5); pH Urine 6.5 (4.5-7.5)
[2024-04-30] MEDS: LATANOPROST 0.005% OP SOLN 2.5 ML BTL OPB SCH (22:03)
[2024-04-30] MEDS: levETIRAcetam IV 500 MG in SODIUM CHLOR 0.9% MINI-B 100 ML IV SCH (22:05)
[2024-05-01 06:45] LABS: Basophils # (auto) 0.08 K/uL (0.00-0.20); Basophils % (auto) 0.7 %; Eosinophils # (auto) 0.04 K/uL (0.00-0.50); Eosinophils % (auto) 0.4 %; Hematocrit (blood only) 34.1 % (37.0-47.0); Hemoglobin 10.8 g/dl (12.0-16.0); Immature Granulocytes % (auto) 0.9 %; Lymphocytes # (auto) 1.21 K/uL (1.20-3.40); Lymphocytes % (auto) 10.7 %; Mean Corpuscular Hemoglobin 26.7 pg (25.0-34.0); Mean Corpuscular Hgb Conc 31.7 g/dL (32.0-36.0); Mean Corpuscular Volume 84.4 fL (80.0-100.0); Mean Platelet Volume 11.9 fL (9.4-12.4); Monocytes # (auto) 0.77 K/uL (0.11-0.59); Monocytes % (auto) 6.8 %; Neutrophils # (auto) 9.15 K/uL (1.40-6.50); Neutrophils % (auto) 80.5 %; Platelet Count 95 K/uL (130-400); RDW Coefficient of Variation 14.8 % (11.5-14.5); RDW Standard Deviation 45.9 fL (36.4-46.3); Red Blood Count 4.04 M/uL (4.20-5.40); White Blood Count 11.35 K/ul (4.8-10.8)
[2024-05-01 07:00] LABS: Albumin Globulin Ratio 1.8 (0.9-2); Albumin Level 3.5 gm/dl (3.4-5.0); BUN Creatinine Ratio 15.1 (10-20); Bilirubin,Total 0.8 mg/dl (0.2-1.0); Calcium 8.7 mg/dl (8.6-10.3); Chol HDL Ratio 4.3 (0-5); Est GFR (African American) 40.2 ml/min; Est GFR (Non-African American) 34.7 ml/min; Magnesium 2.3 mg/dl (1.7-2.4); Potassium 4.2 mmol/L (3.5-5.1); Total Protein 5.5 gm/dl (6.0-8.3)
[2024-05-01 07:08] LABS: INR 3.5 (0.9-1.1); Prothrombin Time 34.4 Seconds (9.0-12.0)
[2024-05-01 07:12] LABS: Troponin I High Sensitivity 83.1 pg/ml (0-14)
[2024-05-01 07:16] LABS: Thyroid Stimulating Hormone 2.09 uIu/ml (0.300-4.500)
[2024-05-01 07:25] LABS: Estimated Average Glucose 103 mg/dl; Hemoglobin A1C 5.2 % (4.5-5.6)
--- NOTE | 2024-05-01 08:11 | Orthopedic Consultation ---
Date of Service May 01, 2024 History of Present Illness Reason for Consultation: T10 compression fracture, acute versus subacute. Requesting Physician: . 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 On 04/30 they had got her up to go to breakfast and when they got her up to the table she had a loud scream. She did not yet start breakfast and she did not take any meds. After the loud scream she got very stiff and started shaking. Staff at the facility noticed she was having, "grand mal seizure," with arms and legs shaking. This lasted 2-3 minutes. While this was happening she had green fluid coming out of her mouth and she became unresponsive. Staff took her out to the living room and laid her on the floor. They noticed that she stopped breathing and didn't have a pulse, became very stiff and turned a different color. Staff started CPR for approximately 5-10 minutes and once EMS arrived they noticed she was breathing again and they turned her on her side because she had fluid coming out of her mouth. Staff report up until today she has been in her normal state of health. Her bowels/bladder moving normally and eating okay. She has not had any recent falls. Patient was seen and examined, she was unresponsive to any verbal stimuli or for any motor exam the lower extremities. No significant response noted on palpation thoracic lumbar region. [facility], [place] [phone] CT Scan Report Patient: PEGGY PRITCHETT Admit Date: 04/30/24 MR#: [id number] Address1: [facility] [employer] [facility] Acct ID:[id number] Address2: [facility] Date: [address] [facility] Zip: [place] [address] Age: 84 Location: ED Sex: F Room/Bed: Att Phy: Diagnosis: Seizure, hypoxia Codie Phy: [facility] Service Date: 04/30/24 Fam Phy: Interpreting Phy: Gurpreet Wiggins MDAit Phy: Ordering Phy: Rajat Ace M.D. cc: ~ CHEST CTA for PULMONARY ARTERIES: 04/30/24 HISTORY: syncope, hypoxia PE TECHNIQUE: Multiaxial CT images of the chest were performed following the intravenous administration of contrast to evaluate the pulmonary arteries. 3D/Maximal intensity projection images were also obtained. Sagittal and coronal reformations were also reviewed. A dose lowering technique was utilized adhering to the principles of ALARA. COMPARISON STUDY: Chest CT 02/26/2018. FINDINGS: Multiple acute to subacute bilateral anterior/lateral rib fractures. There is an acute to subacute nondisplaced right T10 transverse process fracture. Focal indentation at the anterior cortex of the mid sternum suggestive of an old, healed fracture. There is an acute to subacute there is an acute to subacute compression/burst fracture at T10 primarily involving the superior endplate. This demonstrates mild to moderate loss of height centrally. There is involvement of the posterior cortex with 2 mm of retropulsion. No significant central canal narrowing. Mild elevation of the left hemidiaphragm. The visualized liver and spleen are unremarkable. Normal esophagus. The heart is mildly enlarged. No pleural or pericardial effusions. No no mediastinal hematoma or lymphadenopathy. Suboptimal evaluation of the lower lobe subsegmental pulmonary arteries due to the motion artifact. However, no definite filling defects within the pulmonary arteries to suggest a pulmonary embolus. No pneumothorax. The central airways are patent. The upper lung zones are clear. Patchy densities within the lung bases. This may represent atelectasis or a pneumonia. IMPRESSION: 1. Multiple acute to subacute bilateral anterior/lateral rib fractures. No pneumothorax. 2. There is an acute to subacute compression/burst fracture at T10 with 2 mm of retropulsion. No associated central canal narrowing. There is also nondisplaced right T10 transverse process fracture. 3. No evidence for pulmonary embolus with limitations as described above. 4. Patchy bibasilar densities are nonspecific and could represent atelectasis or a pneumonia. Review of chest CT scan from April 30, 2024 was performed, this my separate interpretation, this reveals evidence of a superior endplate fracture of T10, indeterminate in terms of age with minimal loss of height. Impression: CT scan imaging of the chest revealing superior endplate compression fracture of T10, indeterminate as to the age, no significant examination po ssible due to the patient being unresponsive. Plan: Today at this time I would continue the patient without any bracing while supine in the bed. If the patient begins to mobilize, would recommend a thoracolumbar brace but only to be worn when she is upright and out of bed to avoid any pressure issues relative to the skin. Follow-up radiographs in the next 2 to 4 weeks. Allergies Allergy/AdvReac Type Severity Reaction Status Date / Time No Known Allergies Allergy Unverified 11/16/23 15:49 Home Medications Medication Instructions Recorded Confirmed Type latanoprost 0.005 % eye drops 1 drp OPB .DAILY@1900 11/16/23 04/30/24 History quetiapine 25 mg tablet 25 mg PO .DAILY@0800,1700 11/16/23 04/30/24 History risperidone 0.5 mg tablet 0.5 mg PO .@0800,1200,1700 11/16/23 04/30/24 History furosemide 40 mg tablet 40 mg PO UD 02/11/24 04/30/24 History ibuprofen 600 mg tablet 600 mg PO .DAILY@0800 04/30/24 04/30/24 History ibuprofen 600 mg tablet 600 mg PO HS PRN swelling and pain 04/30/24 04/30/24 History warfarin 2.5 mg tablet 2.5 mg PO DAILY 04/30/24 04/30/24 History Past Med/Surg History Problem List (Updated 04/30/24 @ 23:38 by Rajat Ace MD) Dementia (Acute) Aspiration pneumonia (Acute) Multiple rib fractures (Acute) Unresponsive episode (Acute) Seizure-like activity (Acute) UTI (urinary tract infection) Supratherapeutic INR (Acute) Hematoma of left forearm (Acute) Internal jugular vein thrombosis (Acute) Medical History Late onset Alzheimer's dementia without behavioral disturbance CKD (chronic kidney disease), stage IV Chronic ITP (idiopathic thrombocytopenia) Osteoarthritis Osteoporosis SNHL (sensorineural hearing loss) Surgical History Hx of esophagogastroduodenoscopy Status post total hip replacement, right S/P hip replacement Family History Aunt Diabetes Social History Smoking Status: Unknown if ever smoked Preferred Language: Kiswahili Communication Ability: Unable Artistic Associate Required: No Beliefs That Will Affect Care: None marital status: Current Living Situation: [facility] Feels Safe at Home: Yes Assistive Devices: Wheelchair Review of Systems All systems reviewed & are unremarkable except as noted in HPI & below. Physical Exam . Results & Data Results & Data Laboratory Results . Diagnostic Findings . PG Care Time/CCT Total # of Minutes Spent Total Time Spent with Patient: Total time spent is greater than 50% in coordination of care (as documented) at patient's floor/unit and/or counseling patient: Coding Level of Care Code 71063 IN/OBS CONSULT LVL 3,45M
[2024-05-01] MEDS: ACETAMINOPHEN 1,000 MG/100 ML VIAL IV PRN (08:33)
--- NOTE | 2024-05-01 08:46 | XRay Report ---
XR hand LT 2V CLINICAL HISTORY: pain, swelling and bruising COMPARISON STUDY: None. FINDINGS: Suboptimal evaluation the left hand as the fingers are in flexion. However, no definite fra cture or dislocation within the left hand. Moderate to severe multifocal degenerative changes are not ed most pronounced at the first carpometacarpal joint. There is diffuse soft tissue swelling within t he left hand and left wrist. IMPRESSION: 1. Suboptimal evaluation of the left hand due to patient positioning. No definite fractures. 2. Diffuse soft tissue swelling. ACT 112: Negative or not required by law. Electronically signed by: Gurpreet Wiggins M.D. 05/01/2024 8:44 AM
[2024-05-01] MEDS: SODIUM CHLORIDE 0.9% 500 ML IV SCH (09:45)
[2024-05-01] MEDS: ADVANCED PROBIOTIC 625 MG CAPSULE PO SCH (10:41)
[2024-05-01] MEDS: GADOBUTROL 65ML VIAL IV ONE (11:58)
[2024-05-01] MEDS: ERTAPENEM SODIUM 500 MG in SYRINGE 0 ML IV SCH (12:36)
--- NOTE | 2024-05-01 14:09 | Hospitalist Progress Note ---
Date of Service May 01, 2024 Assessment & Plan (1) Seizure-like activity: (2) Unresponsive episode: (3) UTI (urinary tract infection): (4) Multiple rib fractures: (5) Late onset Alzheimer's dementia without behavioral disturbance: (6) CKD (chronic kidney disease), stage IV: (7) Aspiration pneumonia: Plan This is an 84 yr old F who has a significant PMH of advanced dementia and is nonverbal, CKD-4, Osteoporosis, Chronic ITP, Left anterior jugular thrombus who resides at [facility] presents to ED after having seizure like activity and unresponsiveness [employer]ISH [employer]ER. Per [facility] Staff: She was fine first thing this morning. They had got her up to go to breakfast and when they got her up to the table she had a loud scream. She did not yet start breakfast and she did not take any meds. After the loud scream she got very stiff and started shaking. Staff at the facility noticed she was having, "grand mal seizure," with arms and legs shaking. This lasted 2-3 minutes. While this was happening she had green fluid coming out of her mouth and she became unresponsive. Staff took her out to the living room and laid her on the floor. They noticed that she stopped breathing and didn't have a pulse, became very stiff and turned a different color. Staff started CPR for a pproximately 5-10 minutes and once EMS arrived they noticed she was breathing again and they turned her on her side because she had fluid coming out of her mouth. Staff report up until today she has been in her normal state of health. Her bowels/bladder moving normally and eating okay. She has not had any recent falls. Witnessed Seizure like activity Unresponsive episode elevated troponin. will trend. admit to PCU obtain EEG and neuro consult empirically start on IV keppra 500mg q12hr seizure precautions/aspiration precautions Elevated troponin reported out of hospital cardiac arrest s/p CPR for 5-10 minutes, pt was breathing but hypoxic upon ems arrival pt is in normal state now, no ST changes on ecg cycle trop 17-->90.7-->83.1 echocardiogram pending. Multiple rib fractures CTA reveals multiple acute to subacute anterior/lateral rib fractures, no pneumothorax probably from CPR Acute to subacute compression/burst fx at T10 pt is w/o complaint of pain schedule tylenol consulted orthospine Possible Aspiration Pneumonia -it was reported pt had green vomit coming out of mouth at time of unresponsiveness/seizure UTI - previous hx of ESBL continue IV ertapenem for now, lactobacillus no indication for speech therapy as known aspiration and last seen by ST 04/03. Abnormal CTA Head/Neck Moderate to severe focal narrowing within the proximal right FAMILY CASEWORKER. The bilateral ACAs and MCAs are widely patent. Neuro consulted. Cont. Keppra MRI pending lipid panel reviewed. CKD IV -cr stable, 1.59, monitor, avoid nephrotoxic agents, will give gentle IVF in setting of contrasted imaging H/o chronic ITP Stable history, last seen by heme onc in 2016 No signs of bleeding Platelets 114--> 95 today Trend CBC in AM Alzheimer's dementia Stable, at baseline (mostly nonverbal) wheelchair bound at baseline Continue quetiapine BID, risperidone TID UTI Continue ertapenem DVT Ppx: warfarin on hold due to supratherapeutic INR, monitor INR Code status: DNR/DNI - confirmed with (POA/spouse Prasanth ([phone]) PCP: Chris Dispo: admitted to med/surg Prognosis is guarded. A total of 60 minutes was spent coordinating, documenting, and providing care for this patient excluding time spent in the performance of separately billed services. This included personally viewing all current laboratories and imaging studies, medication reconciliation, outpatient chart review, and discussion with specialists. Admission and Anticipated Discharge Date Admission Date: April 30, 2024 Subjective Chart, 24-hour vital signs and data reviewed Patient seen at bedside with nursing. Patient resides at [facility]. Apparently she is nonverbal there due to her advanced dementia No further seizure activity has been noted Patient had an apparent cardiac arrest as well and CPR was done for 10 minutes. Nursing reports patient has only been responsive to noxious stimuli. She remains on Invanz for possible aspiration pneumonitis M Medications reviewed Current Inpatient Medications Acetaminophen (Acetaminophen 500 Mg Tab) 500 mg PO Q6H SIOBHAN Stop: 05/30/24 13:47 Last Admin: 05/01/24 13:14 Dose: Not Given Al Hydrox/Mg Hydrox/Simethicone (Aluminum/Magnesium Susp 30 Ml Udc) 15 ml PO Q4H PRN PRN Reason: Dyspepsia Stop: 05/30/24 13:47 Ertapenem 500 mg/ Syringe 5 mls @ 2 mls/min IV Q24H SIOBHAN; Protocol Stop: 05/11/24 12:29 Last Admin: 05/01/24 12:36 Dose: 2 mls/min Levetiracetam 500 mg/ Sodium (Chloride) 105 mls @ 420 mls/hr IV Q12H [facility] Stop: 05/30/24 21:59 Last Infusion: 05/01/24 10:28 Dose: Infused Acetaminophen (Ofirmev) 1,000 mg in 100 mls @ 400 mls/hr IV Q8H PRN PRN Reason: Pain or Fever Stop: 05/04/24 07:53 Last Infusion: 05/01/24 08:48 Dose: Infused Sodium Chloride (Nss) 500 mls @ 100 mls/hr IV .Q5H [facility] Stop: 05/31/24 09:44 Last Admin: 05/01/24 09:45 Dose: 100 mls/hr Lactobacillus Acidophilus (Advanced Probiotic 625 Mg Capsule) 1,250 mg PO DAILY [facility] Stop: 05/31/24 08:59 Last Admin: 05/01/24 10:41 Dose: Not Given Latanoprost (Latanoprost 0.005% Op Soln 2.5 Ml Btl) 1 drops OPB DAILY@1900 [facility] Stop: 05/30/24 18:59 Last Admin: 04/30/24 22:03 Dose: Not Given Ondansetron HCl (Ondansetron Inj 2 Mg/Ml 2 Ml Vial) 4 mg IV Q6H PRN PRN Reason: Nausea Stop: 05/30/24 13:47 Polyethylene Glycol (Polyethylene (Miralax) 17 Gm Pack) 17 gm PO DAILY PRN PRN Reason: Constipation Stop: 05/30/24 13:47 Quetiapine Fumarate (Quetiapine Fumarate 25 Mg Tablet) 25 mg PO DAILY@0800,1700 [facility] Stop: 05/30/24 16:59 Last Admin: 05/01/24 09:13 Dose: Not Given Risperidone (Risperidone 0.5 Mg Tablet) 0.5 mg PO 0800,1200,1700 [facility] Stop: 05/30/24 13:47 Last Admin: 05/01/24 13:14 Dose: Not Given Review of Systems Review of Systems: Unobtainable Physical Exam Physical Exam: General- adult, elderly female seen at bedside. She has a chronic ill appearance Head- atraumatic Eyes- PERRL, Neck- no JVD, no adenopathy, Lungs-poor excursion but clear to auscultation and percussion Heart- regular rhythm; no murmur, no gallop, no rub appreciated Abdomen- normal bowel sounds, soft, nontender, no masses or hepatosplenomegaly Extremities- no pretibial edema, no calf tenderness; peripheral pulses intact Neuro-eyes are closed. Not responsive to verbal stimuli Pupils are mildly dilated but equal bilaterally. Patient only groans to sternal rub Skin- warm & dry Results & Data Results & Data Vital Signs (Past 12 Hours) Vital Signs Temp Pulse Pulse Resp BP Pulse Ox O2 Del Method 05/01/24 11:06 36.5 C 77 16 121/79 99 Nasal Cannula 05/01/24 08:08 36.9 C 80 16 148/75 H 98 Nasal Cannula 05/01/24 07:51 36.8 C 82 151/82 H 97 Nasal Cannula 05/01/24 07:30 Nasal Cannula 05/01/24 07:00 80 05/01/24 03:47 37.1 C 54 L 16 156/88 H 93 Nasal Cannula O2 Flow Rate 05/01/24 11:06 2 05/01/24 08:08 2 05/01/24 07:51 2 05/01/24 07:30 2 05/01/24 07:00 05/01/24 03:47 2 Diagnostic Findings Laboratory Results WBC 11.35 K/ul (4.8-10.8) H 05/01/24 05:49 RBC 4.04 M/uL (4.20-5.40) L 05/01/24 05:49 Hgb 10.8 g/dl (12.0-16.0) L 05/01/24 05:49 POC Hgb 11.6 g/dl (12.0-16.0) L 04/30/24 09:59 Hct 34.1 % (37.0-47.0) L 05/01/24 05:49 POC Hct 34 % (37-47) L 04/30/24 09:59 MCV 84.4 fL (80.0-100.0) 05/01/24 05:49 MCH 26.7 pg (25.0-34.0) 05/01/24 05:49 MCHC 31.7 g/dL (32.0-36.0) L 05/01/24 05:49 RDW Std Deviation 45.9 fL (36.4-46.3) 05/01/24 05:49 RDW Coeff of Yajaira 14.8 % (11.5-14.5) H 05/01/24 05:49 Plt Count 95 K/uL (130-400) L 05/01/24 05:49 MPV 11.9 fL (9.4-12.4) 05/01/24 05:49 Immature Gran % (Auto) 0.9 % 05/01/24 05:49 Neut % (Auto) 80.5 % 05/01/24 05:49 Lymph % (Auto) 10.7 % 05/01/24 05:49 [place] % (Auto) 6.8 % 05/01/24 05:49 Eos % (Auto) 0.4 % 05/01/24 05:49 Baso % (Auto) 0.7 % 05/01/24 05:49 Neut # (Auto) 9.15 K/uL (1.40-6.50) H 05/01/24 05:49 Lymph # (Auto) 1.21 K/uL (1.20-3.40) 05/01/24 05:49 [place] # (Auto) 0.77 K/uL (0.11-0.59) H 05/01/24 05:49 Eos # (Auto) 0.04 K/uL (0.00-0.50) 05/01/24 05:49 Baso # (Auto) 0.08 K/uL (0.00-0.20) 05/01/24 05:49 Immature Gran # (Auto) 0.10 K/uL (0.01-0.20) 05/01/24 05:49 Polychromasia 1+ 04/30/24 09:50 PT 34.4 Seconds (9.0-12.0) H 05/01/24 05:49 INR 3.5 (0.9-1.1) H 05/01/24 05:49 POC Sodium 139 mmol/L (135-144) 04/30/24 09:59 Sodium 142 mmol/L (136-145) 05/01/24 05:49 POC Potassium 3.7 mmol/L (3.3-5.0) 04/30/24 09:59 Potassium 4.2 mmol/L (3.5-5.1) 05/01/24 05:49 POC Chloride 103 mmol/L (101-112) 04/30/24 09:59 Chloride 108 mmol/L (98-107) H 05/01/24 05:49 Carbon Dioxide 28 mmol/L (21-32) 05/01/24 05:49 POC Total CO2 25 mmol/L (24-31) 04/30/24 09:59 Anion Gap 6 (3-11) 05/01/24 05:49 POC Anion Gap 15.0 mmol/L (16-25) L 04/30/24 09:59 POC BUN 23 mg/dl (7-18) H 04/30/24 09:59 BUN 21 mg/dl (6-23) 05/01/24 05:49 Creatinine 1.39 mg/dl (0.6-1.2) H 05/01/24 05:49 POC Creatinine 1.6 mg/dl (0.6-1.3) H 04/30/24 09:59 Est Cr Clr Drug Dosing 26.0 ml/min 05/01/24 05:49 Est GFR ( Amer) 40.2 ml/min 05/01/24 05:49 Est GFR (Non-Af Amer) 34.7 ml/min 05/01/24 05:49 BUN/Creatinine Ratio 15.1 (10-20) 05/01/24 05:49 Glucose 107 mg/dl (70-99(Fasting)) H 05/01/24 05:49 POC Glucose (other) 141 mg/dl (70-99) H 04/30/24 09:59 Estimat Average Glucose 103 mg/dl 05/01/24 05:49 Hemoglobin A1c 5.2 % (4.5-5.6) 05/01/24 05:49 Calcium 8.7 mg/dl (8.6-10.3) 05/01/24 05:49 POC Ioniz Calcium Janie 1.13 mmol/l (1.12-1.32) 04/30/24 09:59 Phosphorus 3.3 mg/dl (2.5-4.9) 04/30/24 09:50 Magnesium 2.3 mg/dl (1.7-2.4) 05/01/24 05:49 Total Bilirubin 0.8 mg/dl (0.2-1.0) 05/01/24 05:49 AST 20 U/L (13-39) 05/01/24 05:49 ALT 20 U/L (7-52) 05/01/24 05:49 Alkaline Phosphatase 65 U/L (34-104) 05/01/24 05:49 Total Creatine Kinase 41 U/L (26-192) 04/30/24 09:50 Troponin I High Sens 83.1 pg/ml (0-14) H* 05/01/24 05:49 Total Protein 5.5 gm/dl (6.0-8.3) L 05/01/24 05:49 Albumin 3.5 gm/dl (3.4-5.0) 05/01/24 05:49 Globulin 2.0 gm/dl (2.5-4.0) L 05/01/24 05:49 Albumin/Globulin Ratio 1.8 (0.9-2) 05/01/24 05:49 Triglycerides 97 mg/dl (0-150) 05/01/24 05:49 Cholesterol 180 mg/dl (0-200) 05/01/24 05:49 LDL Cholesterol, Calc 119 mg/dl 05/01/24 05:49 VLDL Cholesterol, Calc 19 mg/dl (0-30) 05/01/24 05:49 HDL Cholesterol 42 mg/dl 05/01/24 05:49 Cholesterol/HDL Ratio 4.3 (0-5) 05/01/24 05:49 Lipase 27 U/L (11-82) 04/30/24 09:50 TSH 2.090 uIu/ml (0.300-4.500) 05/01/24 05:49 Urine Color Yellow 04/30/24 18:40 Urine Appearance Clear (Clear) 04/30/24 18:40 Urine pH 6.5 (4.5-7.5) 04/30/24 18:40 Ur Specific [place] > 1.045 (1.000-1.030) H 04/30/24 18:40 Urine Protein 1+ (Negative) H 04/30/24 18:40 Urine Glucose (UA) Negative (Negative) 04/30/24 18:40 Urine Ketones Negative (Negative) 04/30/24 18:40 Urine Blood 2+ (Negative) H 04/30/24 18:40 Urine Nitrite Negative (Negative) 04/30/24 18:40 Urine Bilirubin Negative (Negative) 04/30/24 18:40 Urine Urobilinogen Negative (Negative) 04/30/24 18:40 Ur Leukocyte Esterase 1+ (Negative) H 04/30/24 18:40 Urine WBC (Auto) >50 /hpf (0-5) H 04/30/24 18:40 Urine RBC (Auto) >20 /hpf (0-2) H 04/30/24 18:40 U Hyaline Cast (Auto) 0-2 /lpf (0-2) 04/30/24 18:40 U Epithel Cells (Auto) 0-2 /hpf (0-2) 04/30/24 18:40 Urine Bacteria (Auto) None Seen (None Seen) 04/30/24 18:40 Urine Yeast Present (None Prsent) A 04/30/24 10:58 Treponema pallidum Ab Negative (Negative) 05/01/24 05:49 Impressions Chest X-Ray 04/30/24 09:41 XR chest 1V portable HISTORY: syncope COMPARISON: Chest 02/11/2024. FINDINGS: Rotated study. No pneumothorax. The cardiac silhouette is normal in size. The right lung is clear. Left basilar linear densities favor subsegmental atelectasis or scarring. This is similar to the prior study. Mild interstitial thickening which is likely chronic. No evidence for pulmonary edema. No acute fractures. IMPRESSION: 1. No acute process within the chest. 2. Left basilar linear densities favor subsegmental atelectasis. This is similar to the prior study ACT 112: Negative or not required by law. Electronically signed by: Gurpreet Wiggins M.D. 04/30/2024 9:57 AM Chest CTA 04/30/24 10:00 CHEST CTA for PULMONARY ARTERIES CT DOSE: HISTORY: syncope, hypoxia PE TECHNIQUE: Multiaxial CT images of the chest were performed following the intravenous administration of contrast to evaluate the pulmonary arteries. 3D/Maximal intensity projection images were also obtained. Sagittal and coronal reformations were also reviewed. A dose lowering technique was utilized adhering to the principles of ALARA. COMPARISON STUDY: Chest CT 02/26/2018. FINDINGS: Multiple acute to subacute bilateral anterior/lateral rib fractures. There is an acute to subacute nondisplaced right T10 transverse process fracture. Focal indentation at the anterior cortex of the mid sternum suggestive of an old, healed fracture. There is an acute to subacute there is an acute to subacute compression/burst fracture at T10 primarily involving the superior endplate. This demonstrates mild to moderate loss of height centrally. There is involvement of the posterior cortex with 2 mm of retropulsion. No significant central canal narrowing. Mild elevation of the left hemidiaphragm. The visualized liver and spleen are unremarkable. Normal esophagus. The heart is mildly enlarged. No pleural or pericardial effusions. No no mediastinal hematoma or lymphadenopathy. Suboptimal evaluation of the lower lobe subsegmental pulmonary arteries due to the motion artifact. However, no definite filling defects within the pulmonary arteries to suggest a pulmonary embolus. No pneumothorax. The central airways are patent. The upper lung zones are clear. Patchy densities within the lung bases. This may represent atelectasis or a pneumonia. IMPRESSION: 1. Multiple acute to subacute bilateral anterior/lateral rib fractures. No pneumothorax. 2. There is an acute to subacute compression/burst fracture at T10 with 2 mm of retropulsion. No associated central canal narrowing. There is also nondisplaced right T10 transverse process fracture. 3. No evidence for pulmonary embolus with limitations as described above. 4. Patchy bibasilar densities are nonspecific and could represent atelectasis or a pneumonia. ACT 112: Negative or not required by law. Electronically signed by: Gurpreet Wiggins M.D. 04/30/2024 11:[address] 04/30/24 10:[address] DOSE: HISTORY: syncope TECHNIQUE: Multiaxial CT images of the head were performed without the use of intravenous contrast. Automated exposure control was utilized for this study. A dose lowering technique was utilized adhering to the principles of ALARA. Comparison: None. Findings: The paranasal sinuses and mastoid air cells are clear. The calvarium and skull base are intact. There is no mass, hematoma, midline shift, acute infarct. White matter hypodensity is nonspecific but suggestive of microvascular ischemic change. The ventricles and sulci demonstrate mild age-related involutional changes. Impression: No acute intracranial abnormality. Atrophy and microvascular ischemic changes. ACT 112: Negative or not required by law. Electronically signed by: Gurpreet Wiggins M.D. 04/30/2024 10:29 AM Head CTA 04/30/24 10:00 HEAD & NECK CTA HISTORY: syncope, hypoxia PE TECHNIQUE: Multiaxial CT images of the head were performed the intravenous administration of contrast to evaluate the major cerebral vessels. Multiaxial CT images of the neck were also performed following the intravenous administration of contrast to evaluate the major cervical vessels. 3D/MIP images were also obtained. Sagittal and coronal reformats were reviewed. A dose lowering technique was utilized adhering to the principles of ALARA. COMPARISON: None. FINDINGS: There is no mass, hematoma, midline shift, or acute infarct. Visualized intracranial internal carotid arteries, distal vertebral arteries, and basilar artery are widely patent. There is no significant stenosis, occlusion, or aneurysm seen within the bilateral ACAs, MCAs, or left FAMILY CASEWORKER. Severely hypoplastic distal right vertebral artery. Moderate to severe focal narrowing within the proximal right FAMILY CASEWORKER best seen on image 59. The mid to distal right FAMILY CASEWORKER is widely patent.. The major dural venous sinuses are patent. The aortic arch and proximal great vessels are widely patent. There is no significant stenosis, occlusion, or dissection identified within the bilateral common carotid, internal carotid, or vertebral arteries. Hypoplastic right v ertebral artery. Mild calcified plaque within the right carotid bifurcation. IMPRESSION: 1. Moderate to severe focal narrowing within the proximal right FAMILY CASEWORKER. The bilateral ACAs and MCAs are widely patent. 2. No significant stenosis, occlusion, or dissection identified within the carotid or vertebral arteries. 3. Hypoplastic right vertebral artery. Electronically signed by: Gurpreet Wiggins M.D. 04/30/2024 10:37 AM Neck CTA 04/30/24 10:00 HEAD & NECK CTA HISTORY: syncope, hypoxia PE TECHNIQUE: Multiaxial CT images of the head were performed the intravenous administration of contrast to evaluate the major cerebral vessels. Multiaxial CT images of the neck were also performed following the intravenous administration of contrast to evaluate the major cervical vessels. 3D/MIP images were also obtained. Sagittal and coronal reformats were reviewed. A dose lowering technique was utilized adhering to the principles of ALARA. COMPARISON: None. FINDINGS: There is no mass, hematoma, midline shift, or acute infarct. Visualized intracranial internal carotid arteries, distal vertebral arteries, and basilar artery are widely patent. There is no significant stenosis, occlusion, or aneurysm seen within the bilateral ACAs, MCAs, or left FAMILY CASEWORKER. Severely hypoplastic distal right vertebral artery. Moderate to severe focal narrowing within the p roximal right FAMILY CASEWORKER best seen on image 59. The mid to distal right FAMILY CASEWORKER is widely patent.. The major dural venous sinuses are patent. The aortic arch and proximal great vessels are widely patent. There is no significant stenosis, occlusion, or dissection identified within the bilateral common carotid, internal carotid, or vertebral arteries. Hypoplastic right vertebral artery. Mild calcified plaque within the right carotid bifurcation. IMPRESSION: 1. Moderate to severe focal narrowing within the proximal right FAMILY CASEWORKER. The bilateral ACAs and MCAs are widely patent. 2. No significant stenosis, occlusion, or dissection identified within the carotid or vertebral arteries. 3. Hypoplastic right vertebral artery. Electronically signed by: Gurpreet Wiggins M.D. 04/30/2024 10:37 AM Hand X-Ray 05/01/24 08:03 XR hand LT 2V CLINICAL HISTORY: pain, swelling and bruising COMPARISON STUDY: None. FINDINGS: Suboptimal evaluation the left hand as the fingers are in flexion. However, no definite fracture or dislocation within the left hand. Moderate to severe multifocal degenerative changes are noted most pronounced at the first carpometacarpal joint. There is diffuse soft tissue swelling within the left hand and left wrist. IMPRESSION: 1. Suboptimal evaluation of the left hand due to patient positioning. No definite fractures. 2. Diffuse soft tissue swelling. ACT 112: Negative or not required by law. Electronically signed by: Gurpreet Wiggins M.D. 05/01/2024 8:44 AM (4) Multiple rib fractures Encounter type: initial encounter Fracture type: closed Laterality: bilateral Qualified Code(s): S22.43XA - Multiple fractures of ribs, bilateral, initial encounter for closed fracture (7) Aspiration pneumonia Aspiration pneumonia type: unspecified Laterality: bilateral Lung location: lower lobe of lung Qualified Code(s): J69.0 - Pneumonitis due to inhalation of food and vomit
--- NOTE | 2024-05-01 15:17 | Magnetic Resonance Report ---
Brain MRI WITH AND WITHOUT CONTRAST HISTORY: seizure episode TECHNIQUE: Multiplanar multisequence MRI of the brain was performed both before and after the intrave nous administration of contrast. COMPARISON STUDY: Head CT 04/30/2024. FINDINGS: No areas restricted diffusion to suggest acute infarction. There is a 5 mm lipoma adjacent to the tectal plate. Remaining midline structures are intact. The paranasal sinuses and mastoid air c ells are clear. The major vascular flow-voids at the skull base are maintained. There are moderate at rophic changes within the brain. Prominence of the lateral ventricles with mild periventricular T2 hy perintensity is noted. This is likely due to central volume loss. Normal pressure hydrocephalus is co nsidered less likely but remains in the differential diagnosis. Postcontrast sequences show no areas of abnormal enhancement. There is symmetric temporal lobe atrophy. No evidence for burton matter hetero topia. IMPRESSION: 1. No acute infarct or intracranial hemorrhage. 2. Mild enlargement of the lateral ventricles with mild periventricular white matter T2 hyperintensit y. This favors chronic atrophic changes. Normal pressure hydrocephalus also remains in the differenti al diagnosis but is considered less likely. ACT 112: Negative or not required by law. Electronically signed by: Gurpreet Wiggins M.D. 05/01/2024 3:15 PM
[2024-05-01] MEDS: SODIUM CHLORIDE 0.9% 1,000 ML IV SCH (20:34)
[2024-05-02 03:19] VITALS: RESP 18
[2024-05-02 07:14] LABS: Hematocrit (blood only) 32.5 % (37.0-47.0); Hemoglobin 10.2 g/dl (12.0-16.0); Mean Corpuscular Hemoglobin 26.2 pg (25.0-34.0); Mean Corpuscular Hgb Conc 31.4 g/dL (32.0-36.0); Mean Corpuscular Volume 83.5 fL (80.0-100.0); Mean Platelet Volume 12.7 fL (9.4-12.4); Platelet Count 81 K/uL (130-400); RDW Standard Deviation 45.8 fL (36.4-46.3); Red Blood Count 3.89 M/uL (4.20-5.40); White Blood Count 10.21 K/ul (4.8-10.8)
[2024-05-02 07:23] LABS: BUN Creatinine Ratio 13.8 (10-20); Calcium 8.4 mg/dl (8.6-10.3); Creatinine Clr Calc Pharmacy 29.4 ml/min; Est GFR (African American) 46.6 ml/min; Est GFR (Non-African American) 40.2 ml/min; Magnesium 2.2 mg/dl (1.7-2.4)
--- NOTE | 2024-05-02 11:13 | Hospitalist Progress Note ---
Date of Service May 02, 2024 Assessment & Plan (1) Dementia: (2) Aspiration pneumonia: (3) Multiple rib fractures: (4) Seizure-like activity: (5) Unresponsive episode: (6) UTI (urinary tract infection): (7) Supratherapeutic INR: (8) Hematoma of left forearm: (9) Internal jugular vein thrombosis: Plan Assessment & Plan (1) Seizure-like activity: (2) Unresponsive episode: (3) UTI (urinary tract infection): (4) Multiple rib fractures: (5) Late onset Alzheimer's dementia without behavioral disturbance: (6) CKD (chronic kidney disease), stage IV: (7) Aspiration pneumonia: Plan 84 yr old F who has a significant PMH of advanced dementia and is nonverbal, CKD-4, Osteoporosis, Chronic ITP, Left anterior jugular thrombus who resides at [facility] presents to ED after having seizure like activity and unresponsiveness 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 Patient was due to start hospice care next week Per [facility] Staff: She was fine first thing this morning. They had got her up to go to breakfast and when they got her up to the table she had a loud scream. She did not yet start breakfast and she did not take any meds. After the loud scream she got very stiff and started shaking. Staff at the facility noticed she was having, "grand mal seizure," with arms and legs shaking. This lasted 2-3 minutes. While this was happening she had green fluid coming out of her mouth and she became unresponsive. Staff took her out to the living room and laid her on the floor. They noticed that she stopped breathing and didn't have a pulse, became very stiff and turned a different color. Staff started CPR for ap proximately 5-10 minutes and once EMS arrived they noticed she was breathing again and they turned her on her side because she had fluid coming out of her mouth. Staff report up until today she has been in her normal state of health. Her bowels/bladder moving normally and eating okay. She has not had any recent falls. Witnessed Seizure like activity Unresponsive episode Continue care on PCU EEG and neuro consult Continue on IV keppra 500mg q12hr seizure precautions/aspiration precautions Elevated troponin reported out of hospital cardiac arrest s/p CPR for 5-10 minutes, pt was breathing but hypoxic upon ems arrival pt is in normal state now, no ST changes on EKG cycle trop 70-->90.7-->83.1. This is a relatively flat pattern echocardiogram reviewed. Left ventricular ejection fraction is 55 to 60%. Multiple rib fractures CTA reveals multiple acute to subacute anterior/lateral rib fractures, no pneumothorax probably from CPR Acute to subacute compression/burst fx at T10 pt is w/o complaint of pain schedule tylenol consulted orthospine Possible Aspiration Pneumonia -it was reported pt had green vomit coming out of mouth at time of unresponsiveness/seizure UTI - previous hx of ESBL continue IV ertapenem for now, lactobacillus no indication for speech therapy as known aspiration and last seen by 04/03. Urine growing gram-positive cocci. Final culture pending Abnormal CTA Head/Neck Moderate to severe focal narrowing within the proximal right EVENT AV OPERATOR. The bilateral ACAs and MCAs are widely patent. Neuro consulted. Cont. Keppra MRI reviewed and no significant findings lipid panel reviewed. CKD IV -cr stable, 1.59, monitor, avoid nephrotoxic agents, will give gentle IVF in setting of contrasted imaging H/o chronic ITP Stable history, last seen by heme onc in 2015 No signs of bleeding Platelets 114--> 95-->81 today Trend CBC in AM Alzheimer's dementia Stable, at baseline (mostly nonverbal) wheelchair bound at baseline Continue quetiapine BID, risperidone TID Pt is scheduled to go on hospice. Transfer to [facility] when hospice is set up. UTI Continue ertapenem DVT Ppx: warfarin on hold due to supratherapeutic INR, monitor INR Code status: DNR/DNI - confirmed with (POA/spouse Prasanth ([phone]) PCP: Chris Dispo: admitted to med/surg Prognosis is guarded. A total of 50 minutes was spent coordinating, documenting, and providing care for this patient excluding time spent in the performance of separately billed services. This included personally viewing all current laboratories and imaging studies, medication reconciliation, outpatient chart review, and discussion with specialists. Admission and Anticipated Discharge Date Admission Date: April 30, 2024 Subjective Chart, 24-hour vital signs and data reviewed Patient seen at bedside again with nursing. She seems a little more alert today and opens her eyes and mumbles Patient resides at [facility]. Apparently she is nonverbal there due to her advanced dementia. She is will chair bound. She needs help with feeding. Apparently patient was to start hospice care next week. Terminal diagnosis is severe dementia No further seizure activity has been noted Patient had an apparent cardiac [facility] and CPR was done for 10 minutes. She remains on ertapenem for possible aspiration pneumonitis and UTI Medications reviewed Current Inpatient Medications Acetaminophen (Acetaminophen 500 Mg Tab) 500 mg PO Q6H SIOBHAN Stop: 05/30/24 13:47 Last Admin: 05/02/24 07:55 Dose: Not Given Al Hydrox/Mg Hydrox/Simethicone (Aluminum/Magnesium Susp 30 Ml Udc) 15 ml PO Q4H PRN PRN Reason: Dyspepsia Stop: 05/30/24 13:47 Ertapenem 500 mg/ Syringe 5 mls @ 2 mls/min IV Q24H SIOBHAN; Protocol Stop: 05/11/24 12:29 Last Admin: 05/01/24 12:36 Dose: 2 mls/min Levetiracetam 500 mg/ Sodium (Chloride) 105 mls @ 420 mls/hr IV Q12H SIOBHAN Stop: 05/30/24 21:59 Last Infusion: 05/02/24 10:34 Dose: Infused Acetaminophen (Ofirmev) 1,000 mg in 100 mls @ 400 mls/hr IV Q8H PRN PRN Reason: Pain or Fever Stop: 05/04/24 07:53 Last Infusion: 05/02/24 09:22 Dose: Infused Sodium Chloride (Nss) 1,000 mls @ 100 mls/hr IV .Q10H [facility] Stop: 05/31/24 20:29 Last Admin: 05/02/24 05:56 Dose: 100 mls/hr Lactobacillus Acidophilus (Advanced Probiotic 625 Mg Capsule) 1,250 mg PO DAILY SIOBHAN Stop: 05/31/24 08:59 Last Admin: 05/02/24 07:55 Dose: Not Given Latanoprost (Latanoprost 0.005% Op Soln 2.5 Ml Btl) 1 drops OPB DAILY@1900 SIOBHAN Stop: 05/30/24 18:59 Last Admin: 05/01/24 18:01 Dose: 1 drops Ondansetron HCl (Ondansetron Inj 2 Mg/Ml 2 Ml Vial) 4 mg IV Q6H PRN PRN Reason: Nausea Stop: 05/30/24 13:47 Polyethylene Glycol (Polyethylene (Miralax) 17 Gm Pack) 17 gm PO DAILY PRN PRN Reason: Constipation Stop: 05/30/24 13:47 Quetiapine Fumarate (Quetiapine Fumarate 25 Mg Tablet) 25 mg PO DAILY@0800,1700 SIO[facility]AN Stop: 05/30/24 16:59 Last Admin: 05/02/24 07:55 Dose: Not Given Risperidone (Risperidone 0.5 Mg Tablet) 0.5 mg PO 0800,1200,1700 [facility] Stop: 05/30/24 13:47 Last Admin: 05/02/24 07:55 Dose: Not Given Review of Systems Review of Systems: She is unable to give any history Physical Exam Physical Exam: General- adult, elderly female seen at bedside. She has a chronic ill appearance Head-patient has ecchymosis noted around the left forehead Eyes- PERRL EOMI Neck- no JVD, no adenopathy, Lungs-poor excursion but clear to auscultation and percussion Heart- regular rhythm; no murmur, no gallop, no rub appreciated Abdomen- normal bowel sounds, soft, nontender, no masses or hepatosplenomegaly Extremities- no pretibial edema, peripheral pulses intact Neuro-eyes open to verbal stimuli Pupils are equal bilaterally. Patient speech is unintelligible Skin- warm & dry Results & Data Results & Data Vital Signs (Past 12 Hours) Vital Signs Temp Pulse Pulse Resp BP Pulse Ox O2 Del Method 05/02/24 07:45 Nasal Cannula 05/02/24 07:21 36.6 C 87 18 167/90 H 95 Nasal Cannula 05/02/24 07:00 82 05/02/24 03:04 37.5 C 89 18 171/88 H 93 Nasal Cannula 05/02/24 00:00 81 05/01/24 23:47 36.4 C L 84 16 154/85 H 96 Room Air O2 Flow Rate 05/02/24 07:45 2 05/02/24 07:21 1 05/02/24 07:00 05/02/24 03:04 2 05/02/24 00:00 05/01/24 23:47 2 Diagnostic Findings Laboratory Results WBC 10.21 K/ul (4.8-10.8) 05/02/24 06:32 RBC 3.89 M/uL (4.20-5.40) L 05/02/24 06:32 Hgb 10.2 g/dl (12.0-16.0) L 05/02/24 06:32 POC Hgb 11.6 g/dl (12.0-16.0) L 04/30/24 09:59 Hct 32.5 % (37.0-47.0) L 05/02/24 06:32 POC Hct 34 % (37-47) L 04/30/24 09:59 MCV 83.5 fL (80.0-100.0) 05/02/24 06:32 MCH 26.2 pg (25.0-34.0) 05/02/24 06:32 MCHC 31.4 g/dL (32.0-36.0) L 05/02/24 06:32 RDW Std Deviation 45.8 fL (36.4-46.3) 05/02/24 06:32 RDW Coeff of Yajaira 15.0 % (11.5-14.5) H 05/02/24 06:32 Plt Count 81 K/uL (130-400) L 05/02/24 06:32 MPV 12.7 fL (9.4-12.4) H 05/02/24 06:32 Immature Gran % (Auto) 0.9 % 05/01/24 05:49 Neut % (Auto) 80.5 % 05/01/24 05:49 Lymph % (Auto) 10.7 % 05/01/24 05:49 [place] % (Auto) 6.8 % 05/01/24 05:49 Eos % (Auto) 0.4 % 05/01/24 05:49 Baso % (Auto) 0.7 % 05/01/24 05:49 Neut # (Auto) 9.15 K/uL (1.40-6.50) H 05/01/24 05:49 Lymph # (Auto) 1.21 K/uL (1.20-3.40) 05/01/24 05:49 [place] # (Auto) 0.77 K/uL (0.11-0.59) H 05/01/24 05:49 Eos # (Auto) 0.04 K/uL (0.00-0.50) 05/01/24 05:49 Baso # (Auto) 0.08 K/uL (0.00-0.20) 05/01/24 05:49 Immature Gran # (Auto) 0.10 K/uL (0.01-0.20) 05/01/24 05:49 Polychromasia 1+ 04/30/24 09:50 PT 34.4 Seconds (9.0-12.0) H 05/01/24 05:49 INR 3.5 (0.9-1.1) H 05/01/24 05:49 POC Sodium 139 mmol/L (135-144) 04/30/24 09:59 Sodium 143 mmol/L (136-145) 05/02/24 06:32 POC Potassium 3.7 mmol/L (3.3-5.0) 04/30/24 09:59 Potassium 4.0 mmol/L (3.5-5.1) 05/02/24 06:32 POC Chloride 103 mmol/L (101-112) 04/30/24 09:59 Chloride 113 mmol/L (98-107) H 05/02/24 06:32 Carbon Dioxide 24 mmol/L (21-32) 05/02/24 06:32 POC Total CO2 25 mmol/L (24-31) 04/30/24 09:59 Anion Gap 6 (3-11) 05/02/24 06:32 POC Anion Gap 15.0 mmol/L (16-25) L 04/30/24 09:59 POC BUN 23 mg/dl (7-18) H 04/30/24 09:59 BUN 17 mg/dl (6-23) 05/02/24 06:32 Creatinine 1.23 mg/dl (0.6-1.2) H 05/02/24 06:32 POC Creatinine 1.6 mg/dl (0.6-1.3) H 04/30/24 09:59 Est Cr Clr Drug Dosing 29.4 ml/min 05/02/24 06:32 Est GFR ( Amer) 46.6 ml/min 05/02/24 06:32 Est GFR (Non-Af Amer) 40.2 ml/min 05/02/24 06:32 BUN/Creatinine Ratio 13.8 (10-20) 05/02/24 06:32 Glucose 106 mg/dl (70-99(Fasting)) H 05/02/24 06:32 POC Glucose (other) 141 mg/dl (70-99) H 04/30/24 09:59 Estimat Average Glucose 103 mg/dl 05/01/24 05:49 Hemoglobin A1c 5.2 % (4.5-5.6) 05/01/24 05:49 Calcium 8.4 mg/dl (8.6-10.3) L 05/02/24 06:32 POC Ioniz Calcium Janie 1.13 mmol/l (1.12-1.32) 04/30/24 09:59 Phosphorus 3.3 mg/dl (2.5-4.9) 04/30/24 09:50 Magnesium 2.2 mg/dl (1.7-2.4) 05/02/24 06:32 Total Bilirubin 0.8 mg/dl (0.2-1.0) 05/01/24 05:49 AST 20 U/L (13-39) 05/01/24 05:49 ALT 20 U/L (7-52) 05/01/24 05:49 Alkaline Phosphatase 65 U/L (34-104) 05/01/24 05:49 Total Creatine Kinase 41 U/L (26-192) 04/30/24 09:50 Troponin I High Sens 83.1 pg/ml (0-14) H* 05/01/24 05:49 Total Protein 5.5 gm/dl (6.0-8.3) L 05/01/24 05:49 Albumin 3.5 gm/dl (3.4-5.0) 05/01/24 05:49 Globulin 2.0 gm/dl (2.5-4.0) L 05/01/24 05:49 Albumin/Globulin Ratio 1.8 (0.9-2) 05/01/24 05:49 Triglycerides 97 mg/dl (0-150) 05/01/24 05:49 Cholesterol 180 mg/dl (0-200) 05/01/24 05:49 LDL Cholesterol, Calc 119 mg/dl 05/01/24 05:49 VLDL Cholesterol, Calc 19 mg/dl (0-30) 05/01/24 05:49 HDL Cholesterol 42 mg/dl 05/01/24 05:49 Cholesterol/HDL Ratio 4.3 (0-5) 05/01/24 05:49 Lipase 27 U/L (11-82) 04/30/24 09:50 TSH 2.090 uIu/ml (0.300-4.500) 05/01/24 05:49 Urine Color Yellow 04/30/24 18:40 Urine Appearance Clear (Clear) 04/30/24 18:40 Urine pH 6.5 (4.5-7.5) 04/30/24 18:40 Ur Specific [place] > 1.045 (1.000-1.030) H 04/30/24 18:40 Urine Protein 1+ (Negative) H 04/30/24 18:40 Urine Glucose (UA) Negative (Negative) 04/30/24 18:40 Urine Ketones Negative (Negative) 04/30/24 18:40 Urine Blood 2+ (Negative) H 04/30/24 18:40 Urine Nitrite Negative (Negative) 04/30/24 18:40 Urine Bilirubin Negative (Negative) 04/30/24 18:40 Urine Urobilinogen Negative (Negative) 04/30/24 18:40 Ur Leukocyte Esterase 1+ (Negative) H 04/30/24 18:40 Urine WBC (Auto) >50 /hpf (0-5) H 04/30/24 18:40 Urine RBC (Auto) >20 /hpf (0-2) H 04/30/24 18:40 U Hyaline Cast (Auto) 0-2 /lpf (0-2) 04/30/24 18:40 U Epithel Cells (Auto) 0-2 /hpf (0-2) 04/30/24 18:40 Urine Bacteria (Auto) None Seen (None Seen) 04/30/24 18:40 Urine Yeast Present (None Prsent) A 04/30/24 10:58 Treponema pallidum Ab Negative (Negative) 05/01/24 05:49 Impressions Chest X-Ray 04/30/24 09:41 XR chest 1V portable HISTORY: syncope COMPARISON: Chest 02/11/2024. FINDINGS: Rotated study. No pneumothorax. The cardiac silhouette is normal in size. The right lung is clear. Left basilar linear densities favor subsegmental atelectasis or scarring. This is similar to the prior study. Mild interstitial thickening which is likely chronic. No evidence for pulmonary edema. No acute fractures. IMPRESSION: 1. No acute process within the chest. 2. Left basilar linear densities favor subsegmental atelectasis. This is similar to the prior study ACT 112: Negative or not required by law. Electronically signed by: Gurpreet Wiggins M.D. 04/30/2024 9:57 AM Chest CTA 04/30/24 10:00 CHEST CTA for PULMONARY ARTERIES CT DOSE: HISTORY: syncope, hypoxia PE TECHNIQUE: Multiaxial CT images of the chest were performed following the intravenous administration of contrast to evaluate the pulmonary arteries. 3D/Maximal intensity projection images were also obtained. Sagittal and coronal reformations were also reviewed. A dose lowering technique was utilized adhering to the principles of ALARA. COMPARISON STUDY: Chest CT 02/26/2018. FINDINGS: Multiple acute to subacute bilateral anterior/lateral rib fractures. There is an acute to subacute nondisplaced right T10 transverse process fracture. Focal indentation at the anterior cortex of the mid sternum suggestive of an old, healed fracture. There is an acute to subacute there is an acute to subacute compression/burst fracture at T10 primarily involving the superior endplate. This demonstrates mild to moderate loss of height centrally. There is involvement of the posterior cortex with 2 mm of retropulsion. No significant central canal narrowing. Mild elevation of the left hemidiaphragm. The visualized liver and spleen are unremarkable. Normal esophagus. The heart is mildly enlarged. No pleural or pericardial effusions. No no mediastinal hematoma or lymphadenopathy. Suboptimal evaluation of the lower lobe subsegmental pulmonary arteries due to the motion artifact. However, no definite filling defects within the pulmonary arteries to suggest a pulmonary embolus. No pne umothorax. The central airways are patent. The upper lung zones are clear. Patchy densities within the lung bases. This may represent atelectasis or a pneumonia. IMPRESSION: 1. Multiple acute to subacute bilateral anterior/lateral rib fractures. No pneumothorax. 2. There is an acute to subacute compression/burst fracture at T10 with 2 mm of retropulsion. No associated central canal narrowing. There is also nondisplaced right T10 transverse process fracture. 3. No evidence for pulmonary embolus with limitations as described above. 4. Patchy bibasilar densities are nonspecific and could represent atelectasis or a pneumonia. ACT 112: Negative or not required by law. Electronically signed by: Gurpreet Wiggins M.D. 04/30/2024 11:[address] 04/30/24 10:[address] DOSE: HISTORY: syncope TECHNIQUE: Multiaxial CT images of the head were performed without the use of intravenous contrast. Automated exposure control was utilized for this study. A dose lowering technique was utilized adhering to the principles of ALARA. Comparison: None. Findings: The paranasal sinuses and mastoid air cells are clear. The calvarium and skull base are intact. There is no mass, hematoma, midline shift, acute infarct. White matter hypodensity is nonspecific but suggestive of microvascular ischemic change. The ventricles and sulci demonstrate mild age-related involutional changes. Impression: No acute intracranial abnormality. Atrophy and microvascular ischemic changes. ACT 112: Negative or not required by law. Electronically signed by: Gurpreet Wiggins M.D. 04/30/2024 10:29 AM Head CTA 04/30/24 10:00 HEAD & NECK CTA HISTORY: syncope, hypoxia PE TECHNIQUE: Multiaxial CT images of the head were performed the intravenous administration of contrast to evaluate the major cerebral vessels. Multiaxial CT images of the neck were also performed following the intravenous administration of contrast to evaluate the major cervical vessels. 3D/MIP images were also obtained. Sagittal and coronal reformats were reviewed. A dose lowering technique was utilized adhering to the principles of ALARA. COMPARISON: None. FINDINGS: There is no mass, hematoma, midline shift, or acute infarct. Visualized intracranial internal carotid arteries, distal vertebral arteries, and basilar artery are widely patent. There is no significant stenosis, occlusion, or aneurysm seen within the bilateral ACAs, MCAs, or left EVENT AV OPERATOR. Severely hypoplastic distal right vertebral artery. Moderate to severe focal narrowing within the proximal right EVENT AV OPERATOR best seen on image 59. The mid to distal right EVENT AV OPERATOR is widely patent.. The major dural venous sinuses are patent. The aortic arch and proximal great vessels are widely patent. There is no significant stenosis, occlusion, or dissection identified within the bilateral common carotid, internal carotid, or vertebral arteries. Hypoplastic right vertebral artery. Mild calcified plaque within the right carotid bifurcation. IMPRESSION: 1. Moderate to severe focal narrowing within the proximal right EVENT AV OPERATOR. The bilateral ACAs and MCAs are widely patent. 2. No significant stenosis, occlusion, or dissection identified within the carotid or vertebral arteries. 3. Hypoplastic right vertebral artery. Electronically signed by: Gurpreet Wiggins M.D. 04/30/2024 10:37 AM Neck CTA 04/30/24 10:00 HEAD & NECK CTA HISTORY: syncope, hypoxia PE TECHNIQUE: Multiaxial CT images of the head were performed the intravenous administration of contrast to evaluate the major cerebral vessels. Multiaxial CT images of the neck were also performed following the intravenous administration of contrast to evaluate the major cervical vessels. 3D/MIP images were also obtained. Sagittal and coronal reformats were reviewed. A dose lowering technique was utilized adhering to the principles of ALARA. COMPARISON: None. FINDINGS: There is no mass, hematoma, midline shift, or acute infarct. Visualized intracranial internal carotid arteries, distal vertebral arteries, and basilar artery are widely patent. There is no significant stenosis, occlusion, or aneurysm seen within the bilateral ACAs, MCAs, or left EVENT AV OPERATOR. Severely hypoplastic distal right vertebral artery. Moderate to severe focal narrowing within the proximal right EVENT AV OPERATOR best seen on image 59. The mid to distal right EVENT AV OPERATOR is widely patent.. The major dural venous sinuses are patent. The aortic arch and proximal great vessels are widely patent. There is no significant stenosis, occlusion, or dissection identified within the bilateral common carotid, internal carotid, or vertebral arteries. Hypoplastic right vertebral artery. Mild calcified plaque within the right carotid bifurcation. IMPRESSION: 1. Moderate to severe focal narrowing within the proximal right EVENT AV OPERATOR. The bilateral ACAs and MCAs are widely patent. 2. No significant stenosis, occlusion, or dissection identified within the carotid or vertebral arteries. 3. Hypoplastic right vertebral artery. Electronically signed by: Gurpreet Wiggins M.D. 04/30/2024 10:37 AM Hand X-Ray 05/01/24 08:03 XR hand LT 2V CLINICAL HISTORY: pain, swelling and bruising COMPARISON STUDY: None. FINDINGS: Suboptimal evaluation the left hand as the fingers are in flexion. However, no definite fracture or dislocation within the left hand. Moderate to severe multifocal degenerative changes are noted most pronounced at the first carpometacarpal joint. There is diffuse soft tissue swelling within the left hand and left wrist. IMPRESSION: 1. Suboptimal evaluation of the left hand due to patient positioning. No definite fractures. 2. Diffuse soft tissue swelling. ACT 112: Negative or not required by law. Electronically signed by: Gurpreet Wiggins M.D. 05/01/2024 8:44 AM Brain MRI 05/01/24 10:00 Brain MRI WITH AND WITHOUT CONTRAST HISTORY: seizure episode TECHNIQUE: Multiplanar multisequence MRI of the brain was performed both before and after the intravenous administration of contrast. COMPARISON STUDY: Head CT 04/30/2024. FINDINGS: No areas restricted diffusion to suggest acute infarction. There is a 5 mm lipoma adjacent to the tectal plate. Remaining midline structures are intact. The paranasal sinuses and mastoid air cells are clear. The major vascular flow-voids at the skull base are maintained. There are moderate atrophic changes within the brain. Prominence of the lateral ventricles with mild periventricular T2 hyperintensity is noted. This is likely due to central volume loss. Normal pressure hydrocephalus is considered less likely but remains in the differential diagnosis. Postcontrast sequences show no areas of abnormal enhancement. There is symmetric temporal lobe atrophy. No evidence for burton matter heterotopia. IMPRESSION: 1. No acute infarct or intracranial hemorrhage. 2. Mild enlargement of the lateral ventricles with mild periventricular white matter T2 hyperintensity. This favors chronic atrophic changes. Normal pressure hydrocephalus also remains in the differential diagnosis but is considered less likely. ACT 112: Negative or not required by law. Electronically signed by: Gurpreet Wiggins M.D. 05/01/2024 3:15 PM (1) Dementia Dementia behavioral or psychological symptom: unspecified whether behavioral, psychotic, or mood disturbance or anxiety Dementia severity: severe Dementia type: unspecified type Qualified Code(s): F03.C0 - Unspecified dementia, severe, without behavioral disturbance, psychotic disturbance, mood disturbance, and anxiety (2) Aspiration pneumonia Aspiration pneumonia type: unspecified Laterality: bilateral Lung location: lower lobe of lung Qualified Code(s): J69.0 - Pneumonitis due to inhalation of food and vomit (3) Multiple rib fractures Encounter type: initial encounter Fracture type: closed Laterality: bilateral Qualified Code(s): S22.43XA - Multiple fractures of ribs, bilateral, initial encounter for closed fracture
--- NOTE | 2024-05-02 12:48 | Electroencephalogram ---
EEG Procedure Note Date of Service May 01, 2024 Start / End Times Start Time: 10:19 End Time: 10:39 Referring Physician Lay Whalen History An 84-year-old female with general tonic-clonic seizure. EEG performed for evaluation of epileptiform activity. Home Medication List Medication Instructions Recorded Confirmed Type latanoprost 0.005 % eye drops 1 drp OPB .DAILY@1900 11/16/23 04/30/24 History quetiapine 25 mg tablet 25 mg PO .DAILY@0800,1700 11/16/23 04/30/24 History risperidone 0.5 mg tablet 0.5 mg PO .@0800,1200,1700 11/16/23 04/30/24 History furosemide 40 mg tablet 40 mg PO UD 02/11/24 04/30/24 History ibuprofen 600 mg tablet 600 mg PO .DAILY@0800 04/30/24 04/30/24 History ibuprofen 600 mg tablet 600 mg PO HS PRN swelling and pain 04/30/24 04/30/24 History warfarin 2.5 mg tablet 2.5 mg PO DAILY 04/30/24 04/30/24 History Inpatient Medication List Acetaminophen (Acetaminophen 500 Mg Tab) 500 mg PO Q6H SIOBHAN Stop: 05/30/24 13:47 Last Admin: 05/02/24 07:55 Dose: Not Given Documented By: Admin: 05/02/24 01:05 Dose: Not Given Documented By: Admin: 05/01/24 20:17 Dose: Not Given Documented By: Admin: 05/01/24 13:14 Dose: Not Given Documented By: Admin: 05/01/24 09:12 Dose: Not Given Documented By: Admin: 05/01/24 01:49 Dose: Not Given Documented By: Admin: 04/30/24 21:12 Dose: Not Given Documented By: Admin: 04/30/24 14:35 Dose: 500 mg Documented By: RHONDA Ertapenem 500 mg/ Syringe 5 mls @ 2 mls/min IV Q24H SIOBHAN; Protocol Stop: 05/11/24 12:29 Last Admin: 05/02/24 11:30 Dose: 2 mls/min Documented By: Admin: 05/01/24 12:36 Dose: 2 mls/min Documented By: BRENDA Levetiracetam 500 mg/ Sodium (Chloride) 105 mls @ 420 mls/hr IV Q12H SIOBHAN Stop: 05/30/24 21:59 Last Infusion: 05/02/24 10:34 Dose: Infused Documented By: Admin: 05/02/24 10:17 Dose: 420 mls/hr Documented By: Infusion: 05/01/24 22:09 Dose: Infused Documented By: Admin: 05/01/24 21:54 Dose: 420 mls/hr Documented By: Infusion: 05/01/24 10:28 Dose: Infused Documented By: Admin: 05/01/24 09:45 Dose: 420 mls/hr Documented By: Infusion: 04/30/24 22:24 Dose: Infused Documented By: Admin: 04/30/24 22:05 Dose: 420 mls/hr Documented By: SD Acetaminophen (Ofirmev) 1,000 mg in 100 mls @ 400 mls/hr IV Q8H PRN PRN Reason: Pain or Fever Stop: 05/04/24 07:53 Last Infusion: 05/02/24 09:22 Dose: Infused Documented By: Admin: 05/02/24 08:49 Dose: 400 mls/hr Documented By: Infusion: 05/01/24 08:48 Dose: Infused Documented By: Admin: 05/01/24 08:33 Dose: 400 mls/hr Documented By: BRENDA Sodium Chloride (Nss) 1,000 mls @ 100 mls/hr IV .Q10H SIOBHAN Stop: 05/31/24 20:29 Last Admin: 05/02/24 05:56 Dose: 100 mls/hr Documented By: Infusion: 05/02/24 05:56 Dose: Infused Documented By: Admin: 05/01/24 20:34 Dose: 100 mls/hr Documented By: THEA Lactobacillus Acidophilus (Advanced Probiotic 625 Mg Capsule) 1,250 mg PO DAILY SIOBHAN Stop: 05/31/24 08:59 Last Admin: 05/02/24 07:55 Dose: Not Given Documented By: Admin: 05/01/24 10:41 Dose: Not Given Documented By: BRENDA Latanoprost (Latanoprost 0.005% Op Soln 2.5 Ml Btl) 1 drops OPB DAILY@1900 SIOBHAN Stop: 05/30/24 18:59 Last Admin: 05/01/24 18:01 Dose: 1 drops Documented By: Admin: 04/30/24 22:03 Dose: Not Given Documented By: SD Quetiapine Fumarate (Quetiapine Fumarate 25 Mg Tablet) 25 mg PO DAILY@0800,1700 [facility] Stop: 05/30/24 16:59 Last Admin: 05/02/24 07:55 Dose: Not Given Documented By: Admin: 05/01/24 15:59 Dose: Not Given Documented By: Admin: 05/01/24 09:13 Dose: Not Given Documented By: Admin: 04/30/24 16:46 Dose: 25 mg Documented By: RHONDA Risperidone (Risperidone 0.5 Mg Tablet) 0.5 mg PO 0800,1200,1700 [facility] [place] Stop: 05/30/24 13:47 Last Admin: 05/02/24 11:11 Dose: Not Given Documented By: Admin: 05/02/24 07:55 Dose: Not Given Documented By: Admin: 05/01/24 15:59 Dose: Not Given Documented By: Admin: 05/01/24 13:14 Dose: Not Given Documented By: Admin: 05/01/24 09:13 Dose: Not Given Documented By: Admin: 04/30/24 16:46 Dose: 0.5 mg Documented By: Admin: 04/30/24 14:35 Dose: 0.5 mg Documented By: RHONDA Discontinued Medications Gadobutrol (Gadobutrol 65ml Vial) 6 ml IV ONCE ONE Stop: 05/01/24 11:59 Last Admin: 05/01/24 11:58 Dose: 6 ml Documented By: ROLANDO Sodium Chloride (Nss) 1,000 mls @ 999 mls/hr IV .Q1H1M ONE Stop: 04/30/24 10:42 Last Infusion: 04/30/24 11:57 Dose: Infused Documented By: Admin: 04/30/24 10:21 Dose: 999 mls/hr Documented By: BK Ertapenem (Invanz) 10 mls @ 2 mls/min IV NOW STA Stop: 04/30/24 12:13 Last Admin: 04/30/24 12:53 Dose: 2 mls/min Documented By: CEF Sodium Chloride (Nss) 1,000 mls @ 80 mls/hr IV .[id number] [facility] Stop: 05/01/24 02:17 Last Infusion: 05/01/24 03:15 Dose: Infused Documented By: Admin: 04/30/24 14:34 Dose: 80 mls/hr Documented By: RHONDA Sodium Chloride (Nss) 500 mls @ 100 mls/hr IV .Q5H SIOBHAN Stop: 05/31/24 09:44 Last Admin: 05/01/24 20:30 Dose: Not Given Documented By: Infusion: 05/01/24 19:59 Dose: Infused Documented By: Admin: 05/01/24 14:59 Dose: 100 mls/hr Documented By: Infusion: 05/01/24 14:45 Dose: Infused Documented By: Admin: 05/01/24 09:45 Dose: 100 mls/hr Documented By: BRENDA Ioversol (Optiray 320 125ml) 119 ml IV ONCE ONE Stop: 04/30/24 10:12 Last Admin: 04/30/24 10:11 Dose: 119 ml Documented By: EVARISTO Levetiracetam (Levetiracetam 500 Mg/5 Ml Vial) 500 mg IV NOW STA Stop: 04/30/24 13:23 Last Admin: 04/30/24 14:37 Dose: 500 mg Documented By: RHONDA Description This is a 21 electrode EEG with a single channel dedicated to limited EKG. The electrodes were placed in accordance with the International 10-20 system. REPORT: At the onset of the EEG the patient is in an altered mental state. The background is disorganized with loss of the normal anterior to posterior gradient. The background predominantly consists of polymorphic theta delta activity with some intermittent generalized broad-based sharp waves with triphasic morphology. No stage 2 sleep transients are seen. Photic stimulation does not induce any additional abnormalities. Interpretation IMPRESSION: This is an abnormal routine EEG in a patient with altered mentation due to 1. Generalized background slowing suggestive of a nonspecific encephalopathy, 2. Intermittent triphasic waves suggestive of underlying metabolic encephalopathy. No electrographic seizures or epileptiform discharges were seen.
[2024-05-03 06:48] LABS: Hematocrit (blood only) 33.3 % (37.0-47.0); Hemoglobin 10.5 g/dl (12.0-16.0); Mean Corpuscular Hemoglobin 26.6 pg (25.0-34.0); Mean Corpuscular Hgb Conc 31.5 g/dL (32.0-36.0); Mean Corpuscular Volume 84.5 fL (80.0-100.0); Mean Platelet Volume 12.4 fL (9.4-12.4); Platelet Count 58 K/uL (130-400); RDW Coefficient of Variation 14.6 % (11.5-14.5); RDW Standard Deviation 45.1 fL (36.4-46.3); Red Blood Count 3.94 M/uL (4.20-5.40); White Blood Count 11.91 K/ul (4.8-10.8)
[2024-05-03 07:22] LABS: BUN Creatinine Ratio 14.2 (10-20); Calcium 8.3 mg/dl (8.6-10.3); Creatinine Clr Calc Pharmacy 34.1 ml/min; Est GFR (African American) 55.8 ml/min; Est GFR (Non-African American) 48.2 ml/min
--- NOTE | 2024-05-03 08:14 | Discharge Summary ---
Discharge Summary Date of Service May 03, 2024 Principal Dx & Hospital Course #1 = Principal Diagnosis (1) Dementia: (2) Aspiration pneumonia: (3) Multiple rib fractures: (4) Seizure-like activity: (5) Unresponsive episode: (6) UTI (urinary tract infection): (7) Supratherapeutic INR: (8) Hematoma of left forearm: (9) Internal jugular vein thrombosis: Plan 84 yr old F who has a significant PMHx of advanced dementia and is nonverbal, CKD-4, Osteoporosis, Chronic ITP, Left anterior jugular thrombus who resides at [facility] who presented to the ED after having seizure-like activity and 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 Patient was due to start hospice care the week after she presented. Per [facility] Staff: "She was fine first thing this morning. They had got her up to go to breakfast and when they got her up to the table she had a loud scream. She did not yet start breakfast and she did not take any meds. After the loud scream she got very stiff and started shaking. Staff at the facility noticed she was having, "grand mal seizure," with arms and legs shaking. This lasted 2-3 minutes. While this was happening she had green fluid coming out of her mouth and she became unresponsive. Staff took her out to the living room and laid her on the floor. They noticed that she stopped breathing and didn't have a pulse, became very stiff and turned a different color. Staff started CPR for approximately 5-10 minutes and once EMS arrived they noticed she was breathing again and they turned her on her side because she had fluid coming out of her mouth. Staff report up until today she has been in her normal state of health. Her bowels/bladder moving normally and eating okay. She has not had any recent falls." Pt was admitted and was seen by neurology who recommended treatment with Keppra. She had multiple rib fractures related to CPR as well as a compression burst fracture at T10. Her urine grew Enterococcus and she was treated with antibiotics. Pt and family requested discharge home with hospice services. She was also discharged home/living facility with po amoxicillin for 5 days to treat her UTI and oral keppra. Pt discharged home/living facility with hospice services on 05/03/24. She was previously treated for the following: Witnessed Seizure like activity Unresponsive episode EEG noting encephalopathy Neurology consulted, recommended/stated the following: "Witnessed generalized seizure. Recommend continue to monitor for s/s of infection. Agree with continued Keppra. Recommend obtain EEG. Provide seizure precautions. Utilize benzodiazepines emergently for any breakthrough clinical seizure like activity. Recommend obtain MRI brain with and without contrast. Ec hocardiogram as part of complete workup. Continue frequent neurological assessments. Obtain stat CT brain without contrast for any acute neurological decline. Continue to monitor/control blood pressure & blood glucose. Continue to monitor telemetry closely. Recommend ZioPatch at DC if no evidence of arrhythmia during inpatient monitoring. Continue to monitor renal and hepatic function, keep euvolemic. Metabolic workup should include hgbA1c, fasting lipids, homocysteine, TSH, D Dimer, RPR, urinalysis. Ok from neurology perspective for VTE prophylaxis. PT/OT/SLT to eval and treat. EEG and neuro consult. Continue on IV keppra 500mg q12hr. seizure precautions/aspiration precautions" Pt discharged with po keppra 500mg BID PCP/Hospice followup Possible Aspiration Pneumonia -it was reported pt had green vomit coming out of mouth at time of unresponsiveness/seizure UTI previous hx of ESBL UA was suggestive of infection, urine cx grew Enterococcus faecalis Was on IV ertapenem transitioned to po amoxicillin on discharge. No indication for speech therapy as known aspiration and last seen by ST 04/03. PCP/Hospice followup. Elevated troponin reported out of hospital cardiac arrest s/p CPR for 5-10 minutes, pt was breathing but hypoxic upon ems arrival pt is in normal state now, no ST changes on EKG cycle trop 70-->90.7-->83.1. This is a relatively flat pattern echocardiogram reviewed. Left ventricular ejection fraction is 55 to 60%. Multiple rib fractures CTA reveals multiple acute to subacute anterior/lateral rib fractures, no pneumothorax Likely from CPR pain control Acute to subacute compression/burst fx at T10 pt is w/o complaint of pain Pain control Consulted Orthospine, recommended/stated the following: "Today at this time I would continue the patient without any bracing while supine in the bed. If the patient begins to mobilize, would recommend a thoracolumbar brace but only to be worn when she is upright and out of bed to avoid any pressure issues relative to the skin. Follow-up radiographs in the next 2 to 4 weeks." Pt discharged home with hospice services. Abnormal CTA Head/Neck Moderate to severe focal narrowing within the proximal right [employer] OPERATOR. The bilateral ACAs and MCAs are widely patent. Neuro consulted. Cont. Keppra MRI reviewed and no significant findings lipid panel reviewed. CKD IV -cr stable, 1.59, monitor, avoid nephrotoxic agents, will give gentle IVF in setting of contrasted imaging H/o chronic ITP Stable history, last seen by heme onc in 2015 No signs of bleeding Platelets 114--> 95-->81--58 PCP/Hospice followup Alzheimer's dementia Stable, at baseline (mostly nonverbal) wheelchair bound at baseline Continue quetiapine BID, risperidone TID Pt is scheduled to go on hospice. Transfer to [facility] on 05/03 Notes For Next Care Provider Pt discharged home with hospice services Medication Changes From Visit Keppra 500mg BID Ampicillin 500mg q6h x 5 more days Admission HPI Per Admitting Provider This is an 84 yr old F who has a significant PMH of advanced dementia and is nonverbal, CKD-3, Osteoporosis, Chronic ITP, Left anterior jugular thrombus who resides at [facility] presents to ED after having seizure like activity and unresponsiveness [employer]ITATIVE CONSULTANT. Hx was obtained from ED provider who spoke to and pre hospital personnel and [facility] staff. [facility] reported she was fine first thing this morning. They had got her up to go to breakfast and when they got her up to the table she had a loud scream. She did not yet start breakfast and she did not take any meds. After the loud scream she got very stiff and started shaking. Staff at the facility noticed she was having, "grand mal seizure," with arms and legs shaking. This lasted 2-3 minutes. While this was happening she had green fluid coming out of her mouth and she became unresponsive. Staff took her out to the living room and laid her on the floor. They noticed that she stopped breathing, became very stiff and turned a different color. Staff started CPR for approximately 5-10 minutes and once EMS arrived they noticed she was breathing again and they turned her on her side because she had fluid coming out of her mouth. Staff report up until today she has been in her normal state of health. Her bowels/bladder moving normally and eating okay. She has not had any recent falls. In ED she was hemodynamically stable; however requiring 6L of oxygen at this time. She received 1g of IV ertapenem and fluids in ED. Admission Exam Per Admitting Provider General: Sitting comfortably in bed, not in distress, on 6L via OM, non verbal HEENT: NEEMA, MMM Chest: Fair breath sounds bilaterally, no wheezes or crackles CVS: Regular rate and rhythm, normal heart sounds, no murmur Abdomen: Soft, non tender, not distended, normal bowel sounds Neuro: Awake, alert, minimally/non verbal due to dementia MSK/Skin: no edema noted. Discharge Exam General: laying in bed resting comfortably Skin: scaling noted on left forearm Neuro: difficulty with movements HEENT: NC/AT CV: RRR Resp: no increased effort of breathing Abdomen: nontender Extremities: edema in right arm, forearm and hand Updated Medication List Medication Instructions Recorded Confirmed Type latanoprost 0.005 % eye drops 1 drp OPB .DAILY@1900 11/16/23 04/30/24 History quetiapine 25 mg tablet 25 mg PO .DAILY@0800,1700 11/16/23 04/30/24 History risperidone 0.5 mg tablet 0.5 mg PO .@0800,1200,1700 11/16/23 04/30/24 History furosemide 40 mg tablet 40 mg PO UD 02/11/24 04/30/24 History ibuprofen 600 mg tablet 600 mg PO .DAILY@0800 04/30/24 04/30/24 History ibuprofen 600 mg tablet 600 mg PO HS PRN swelling and pain 04/30/24 04/30/24 History warfarin 2.5 mg tablet 2.5 mg PO DAILY 04/30/24 04/30/24 History amoxicillin 500 mg tablet 500 mg PO Q8H #15 tabs 05/03/24 Rx levetiracetam 500 mg tablet 500 mg PO BID #60 tabs 05/03/24 Rx (Keppra) Hospital Stay Data Consultations 04/30/24 12:34 ED Decision to Admit Stat 04/30/24 13:21 Consult Neurology Routine 04/30/24 14:00 Consult Orthopedic Surgery Routine Diagnostic Imagining Performed 04/30/24 10:00 CT angio chest PE protocol Stat CT angio head w con Stat CT angio neck with con Stat CT head/brain wo con Stat 05/01/24 10:00 MRI Brain [MR brain seizure wo/w con] Routine Chest X-Ray 04/30/24 09:41 XR chest 1V portable HISTORY: syncope COMPARISON: Chest 02/11/2024. FINDINGS: Rotated study. No pneumothorax. The cardiac silhouette is normal in size. The right lung is clear. Left basilar linear densities favor subsegmental atelectasis or scarring. This is similar to the prior study. Mild interstitial thickening which is likely chronic. No evidence for pulmonary edema. No acute fractures. IMPRESSION: 1. No acute process within the chest. 2. Left basilar linear densities favor subsegmental atelectasis. This is similar to the prior study ACT 112: Negative or not required by law. Electronically signed by: Gurpreet Wiggins M.D. 04/30/2024 9:57 AM Chest CTA 04/30/24 10:00 CHEST CTA for PULMONARY ARTERIES CT DOSE: HISTORY: syncope, hypoxia PE TECHNIQUE: Multiaxial CT images of the chest were performed following the intravenous administration of contrast to evaluate the pulmonary arteries. 3D/Maximal intensity projection images were also obtained. Sagittal and coronal reformations were also reviewed. A dose lowering technique was utilized adhering to the principles of ALARA. COMPARISON STUDY: Chest CT 02/26/2018. FINDINGS: Multiple acute to subacute bilateral anterior/lateral rib fractures. There is an acute to subacute nondisplaced right T10 transverse process fracture. Focal indentation at the anterior cortex of the mid sternum suggestive of an old, healed fracture. There is an acute to subacute there is an acute to subacute compression/burst fracture at T10 primarily involving the superior endplate. This demonstrates mild to moderate loss of height centrally. There is involvement of the posterior cortex with 2 mm of retropulsion. No significant central canal narrowing. Mild elevation of the left hemidiaphragm. The visualized liver and spleen are unremarkable. Normal esophagus. The heart is mildly enlarged. No pleural or pericardial effusions. No no mediastinal hematoma or lymphadenopathy. Suboptimal evaluation of the lower lobe subsegmental pulmonary arteries due to the motion artifact. However, no definite filling defects within the pulmonary arteries to suggest a pulmonary embolus. No pneumothorax. The central airways are patent. The upper lung zones are clear. Patchy densities within the lung bases. This may represent atelectasis or a pneumonia. IMPRESSION: 1. Multiple acute to subacute bilateral anterior/lateral rib fractures. No pneumothorax. 2. There is an acute to subacute compression/burst fracture at T10 with 2 mm of retropulsion. No associated central canal narrowing. There is also nondisplaced right T10 transverse process fracture. 3. No evidence for pulmonary embolus with limitations as described above. 4. Patchy bibasilar densities are nonspecific and could represent atelectasis or a pneumonia. ACT 112: Negative or not required by law. Electronically signed by: Gurpreet Wiggins M.D. 04/30/2024 11:[address] 04/30/24 10:[address] DOSE: HISTORY: syncope TECHNIQUE: Multiaxial CT images of the head were performed without the use of intravenous contrast. Automated exposure control was utilized for this study. A dose lowering technique was utilized adhering to the principles of ALARA. Comparison: None. Findings: The paranasal sinuses and mastoid air cells are clear. The calvarium and skull base are intact. There is no mass, hematoma, midline shift, acute infarct. White matter hypodensity is nonspecific but suggestive of microvascular ischemic change. The ventricles and sulci demonstrate mild age-related involutional changes. Impression: No acute intracranial abnormality. Atrophy and microvascular ischemic changes. ACT 112: Negative or not required by law. Electronically signed by: Gurpreet Wiggins M.D. 04/30/2024 10:29 AM Head CTA 04/30/24 10:00 HEAD & NECK CTA HISTORY: syncope, hypoxia PE TECHNIQUE: Multiaxial CT images of the head were performed the intravenous administration of contrast to evaluate the major cerebral vessels. Multiaxial CT images of the neck were also performed following the intravenous administration of contrast to evaluate the major cervical vessels. 3D/MIP images were also obtained. Sagittal and coronal reformats were reviewed. A dose lowering technique was utilized adhering to the principles of ALARA. COMPARISON: None. FINDINGS: There is no mass, hematoma, midline shift, or acute infarct. Visualized intracranial internal carotid arteries, distal vertebral arteries, and basilar artery are widely patent. There is no significant stenosis, occlusion, or aneurysm seen within the bilateral ACAs, MCAs, or left [employer]SP[employer] OPERATOR. Severely hypoplastic distal right vertebral artery. Moderate to severe focal narrowing within the proximal right [employer]SP[employer] OPERATOR best seen on image 59. The mid to distal right [employer]SP[employer] OPERATOR is widely patent.. The major dural venous sinuses are patent. The aortic arch and proximal great vessels are widely patent. There is no significant stenosis, occlusion, or dissection identified within the bilateral common carotid, internal carotid, or vertebral arteries. Hypoplastic right vertebral artery. Mild calcified plaque within the right carotid bifurcation. IMPRESSION: 1. Moderate to severe focal narrowing within the proximal right [employer]SP[employer] OPERATOR. The bilateral ACAs and MCAs are widely patent. 2. No significant stenosis, occlusion, or dissection identified within the carotid or vertebral arteries. 3. Hypoplastic right vertebral artery. Electronically signed by: Gurpreet Wiggins M.D. 04/30/2024 10:37 AM Neck CTA 04/30/24 10:00 HEAD & NECK CTA HISTORY: syncope, hypoxia PE TECHNIQUE: Multiaxial CT images of the head were performed the intravenous administration of contrast to evaluate the major cerebral vessels. Multiaxial CT images of the neck were also performed following the intravenous administration of contrast to evaluate the major cervical vessels. 3D/MIP images were also obtained. Sagittal and coronal reformats were reviewed. A dose lowering technique was utilized adhering to the principles of ALARA. COMPARISON: None. FINDINGS: There is no mass, hematoma, midline shift, or acute infarct. Visualized int racranial internal carotid arteries, distal vertebral arteries, and basilar artery are widely patent. There is no significant stenosis, occlusion, or aneurysm seen within the bilateral ACAs, MCAs, or left [employer]SP[employer] OPERATOR. Severely hypoplastic distal right vertebral artery. Moderate to severe focal narrowing within the proximal right [employer]SP[employer] OPERATOR best seen on image 59. The mid to distal right [employer]SP[employer] OPERATOR is widely patent.. The major dural venous sinuses are patent. The aortic arch and proximal great vessels are widely patent. There is no significant stenosis, occlusion, or dissection identified within the bilateral common carotid, internal carotid, or vertebral arteries. Hypoplastic right vertebral artery. Mild calcified plaque within the right carotid bifurcation. IMPRESSION: 1. Moderate to severe focal narrowing within the proximal right [employer]SP[employer] OPERATOR. The bilateral ACAs and MCAs are widely patent. 2. No significant stenosis, occlusion, or dissection identified within the carotid or vertebral arteries. 3. Hypoplastic right vertebral artery. Electronically signed by: Gurpreet Wiggins M.D. 04/30/2024 10:37 AM Hand X-Ray 05/01/24 08:03 XR hand LT 2V CLINICAL HISTORY: pain, swelling and bruising COMPARISON STUDY: None. FINDINGS: Suboptimal evaluation the left hand as the fingers are in flexion. However, no definite fracture or dislocation within the left hand. Moderate to severe multifocal degenerative changes are noted most pronounced at the first carpometacarpal joint. There is diffuse soft tissue swelling within the left hand and left wrist. IMPRESSION: 1. Suboptimal evaluation of the left hand due to patient positioning. No definite fractures. 2. Diffuse soft tissue swelling. ACT 112: Negative or not required by law. Electronically signed by: Gurpreet Wiggins M.D. 05/01/2024 8:44 AM Brain MRI 05/01/24 10:00 Brain MRI WITH AND WITHOUT CONTRAST HISTORY: seizure episode TECHNIQUE: Multiplanar multisequence MRI of the brain was performed both before and after the intravenous administration of contrast. COMPARISON STUDY: Head CT 04/30/2024. FINDINGS: No areas restricted diffusion to suggest acute infarction. There is a 5 mm lipoma adjacent to the tectal plate. Remaining midline structures are intact. The paranasal sinuses and mastoid air cells are clear. The major vascular flow-voids at the skull base are maintained. There are moderate atrophic changes within the brain. Prominence of the lateral ventricles with mild periventricular T2 hyperintensity is noted. This is likely due to central volume loss. Normal pressure hydrocephalus is considered less likely but remains in the differential diagnosis. Postcontrast sequences show no areas of abnormal enhancement. There is symmetric temporal lobe atrophy. No evidence for burton matter heterotopia. IMPRESSION: 1. No acute infarct or intracranial hemorrhage. 2. Mild enlargement of the lateral ventricles with mild periventricular white matter T2 hyperintensity. This favors chronic atrophic changes. Normal pressure hydrocephalus also remains in the differential diagnosis but is considered less likely. ACT 112: Negative or not required by law. Electronically signed by: Gurpreet Wiggins M.D. 05/01/2024 3:15 PM Discharge Instructions Given to Patient (Per Discharging Provider) Ninfa, You are being discharged home with hospice services. We are discharging you home with the medication Keppra for continued use per Neurology. We also treated you for a urinary tract infection and we are discharging you home with 5 more days of antibiotic treatment for that. Please keep close follow up with your hospice provider after discharge. It was a pleasure taking care of you while you were here. Total Time Total Time Spent Total Time Spent (In Minutes): 75
[2024-05-03 11:08] VITALS: BP 136/71; PULSE 81; TEMP 97.5; O2SAT 96
[2024-05-03] MEDS: AMOXICILLIN 500 MG CAP PO STA (12:51)
== END 2024-05-03 13:20 | disposition hospice, home (50) | DRG 100 ==
LOC: ED 09:42 → SUATTDRO 12:35 → 2S 12:35